=== PATIENT | female | born 1940 | race Caucasian/White ===

== ENCOUNTER 2017-06-10 16:48 | Emergency (ER) | payer MEDICARE ==
[~2017-06-10] VITALS: Ht 165.1 cm; Wt 59.0 kg
[~2017-06-10 16:48] MED LIST: MELA1CAP PO; PERC7.5T13 PO
[2017-06-10 16:52] VITALS: BP 118/57; PULSE 82; RESP 16; TEMP 97.8; O2SAT 94
[2017-06-10] MEDS ORDERED: MELA1TAB18 PO (17:41)
--- NOTE | 2017-06-10 17:44 | PD ---
HPI Chief Complaint: Injury Time Seen by Provider: 17:31 Travel History International Travel<30 days: No Contact w/Intl Traveler<30days: No Traveled to known affect area: No History of Present Illness HPI Patient is a 76-year-old female who reports a slip and fall landing on her left shoulder approximately an hour prior to arrival. She states she has extreme pain in her left shoulder time she tries to move it. Patient denies any head injury or neck injury back injury loss of consciousness. She describes a purely mechanical fall. She states she was actually just leaving her painter foreman before she was establishing as a first-time patient and tripped and fell in a parking lot. She states she's not had a prior injury to her shoulder she is followed by Dr. Allan for history of L1 fracture and asked why she was going to a painter foreman. She denies a history of frequent falls. PFSH Past Medical History Anxiety: Yes Cancer: Yes (UTERINE) Chemotherapy: No COPD: Yes (EMPHYSEMA) Diminished Hearing: No Musculoskeletal: Yes (BULGING DISC IN NECK) Radiation Therapy: No Past Surgical History Hysterectomy: Yes Social History Alcohol Use: Yes (DAILY WINE) Tobacco Use: Yes (1 PPD) Substance Use: No Allergies-Medications (Allergen,Severity, Reaction): Coded Allergies: penicillin G (Unverified Allergy, Severe, Anaphylaxis, 05/29/17) Reported Meds & Prescriptions Reported Meds & Active Scripts Active Reported Melatonin 10 Mg-1 Mg Tab 20 Mg PO HS PRN Review of Systems Except as stated in HPI: all other systems reviewed are Neg Physical Exam Narrative GENERAL: Well-nourished, well-developed patient. SKIN: Focused skin assessment warm/dry. There is an avulsion of the skin over the olecranon process of the left elbow. No bony tenderness appreciated. HEAD: Normocephalic. EYES: No scleral icterus. No injection or drainage. NECK: Supple, trachea midline. No JVD or lymphadenopathy. CARDIOVASCULAR: Regular rate and rhythm without murmurs, gallops, or rubs. RESPIRATORY: Breath sounds equal bilaterally. No accessory muscle use. GASTROINTESTINAL: Abdomen soft, non-tender, nondistended. MUSCULOSKELETAL: No cyanosis. There is some anterior swelling as well as tenderness to the proximal humerus on the left side. Highly consistent with a proximal humerus fracture. Appears to be properly seated in the glenohumeral joint. No tenderness on the clavicle, no tenderness on the distal humerus. No other deformities noted on her upper extremities and lower extremities. No midline CT or L-spine tenderness. Pulses motor and sensory are intact distally in all 4 extremities. Compartments are soft. BACK: Nontender without obvious deformity. No CVA tenderness. Data Data Last Documented VS Vital Signs Date Time Temp Pulse Resp B/P (MAP) Pulse Ox O2 Delivery O2 Flow Rate FiO2 06/10/17 19:21 80 20 95 06/10/17 16:52 97.8 118/57 (77) Orders Orders Humerus (Min 2vws) (06/10/17 ) Acetamin-Hydrocod 325-5 Mg (Coleman 5-325 (06/10/17 17:45) Sling And Swathe (06/10/17 ) Sling And Swathe (06/10/17 ) [facility] Medical Decision Making Medical Screen Exam Complete: Yes Emergency Medical Condition: Yes Differential Diagnosis Humerus fracture, before meals separation, shoulder dislocation unlikely, acute head injury unlikely, acute neck injury unlikely. Narrative Course Patient is a 76-year-old female who is quite pleasant, denies hitting her head or neck. She does not appear to be in any distress. Was given pain medicine, x -rays confirm the suspicion of approximately humerus fracture. She was placed in a sling and swath and discussed follow-up with her painter foreman as well as Dr. Allan and or Dr. Vargas this week. She is stable for discharge at this time. After placed in sling and swath pulses motor and sensory were confirmed distally as well. Diagnosis Primary Impression: Fracture, humerus Referrals: Yogi Vargas MD Additional Instructions: Call your painter foreman for further advice on pain management. You can consider taking 2 hydrocodone 5/325 pills every 8 hours as needed for pain. Do not operate heavy machinery after taking this medicine. Take a stool softener to help keep you regular as this medicine can constipation. Recommend you speak with your pain management physician for increasing to this regimen. Med/Other Pt SpecificInfo: Prescription(s) given Disposition: 01 DISCHARGE HOME Condition: Stable Bobo Swartz MD Jun 10, 2017 17:44
[2017-06-10] MEDS ORDERED: ACETAMINOPHEN/HYDROcodone 325 MG/5 MG TAB PO ONE (17:45)
--- NOTE | 2017-06-10 18:46 | RADRPT ---
EXAM DATE/TIME: 06/10/2017 17:46 [facility] COMPARISON: CHEST PA & LAT, December 05, 2013, 10:42. INDICATIONS : Trauma, fall. MEDICAL HISTORY : None. SURGICAL HISTORY : None. ENCOUNTER: Initial ACUITY: 1 day PAIN SCORE: 8/10 LOCATION: Left proximal humerus. FINDINGS: There is a comminuted fracture seen at the proximal left humerus. The fracture does ap pear somewhat impacted. Fracture fragments extend through the greater tubercle. The humeral head do es appear normally aligned with the glenoid. There is an old fracture deformity at the mid to latera l aspect of the left clavicle. CONCLUSION: Acute fracture deformity at the proximal left humerus. Paul Akhtar MD on June 10, 2017 at 18:36 Board Certified Radiologist. This report was verified electronically.
[2017-06-10 19:20] VITALS: RESP 18
== END 2017-06-10 19:33 | disposition home or self-care (01) ==
LOC: PHED 16:48
DX: S42.202A Unspecified fracture of upper end of left humerus, initial encounter for closed fracture (principal); W01.0XXA Fall on same level from slipping, tripping and stumbling without subsequent striking against object, initial encounter; Y92.481 Parking lot as the place of occurrence of the external cause
CPT/HCPCS: 73060; 99283

== ENCOUNTER 2018-02-23 15:23 | Observation (INO) | payer MEDICARE ==
[~2018-02-23] VITALS: Ht 165.1 cm; Wt 60.8 kg
[2018-02-23] VITALS (8 sets, daily range): BP systolic 118–142; BP diastolic 58–95; PULSE 82–116; RESP 18–24; TEMP 98–98.6; O2SAT 93–97
[~2018-02-23 15:23] MED LIST changes: -MELA1CAP PO; +MELA1TAB18 PO; -PERC7.5T13 PO
[2018-02-23] MEDS ORDERED: TRAM50TA PO (15:48)
[2018-02-23] MEDS ORDERED: VENTAER INH (15:48)
[2018-02-23] MEDS ORDERED: SODIUM CHLORIDE 0.9% FLUSH 10 ML FLUSH IVF PRN (16:00)
--- NOTE | 2018-02-23 16:02 | PD ---
HPI Chief Complaint: Respiratory Symptoms Time Seen by Provider: 15:49 Travel History International Travel<30 days: No Contact w/Intl Traveler<30days: No Traveled to known affect area: No History of Present Illness HPI 77-year-old female with history of COPD, here for evaluation of shortness of breath. Symptoms started yesterday afternoon. Shortness of breath is at rest, worse with exertion. She has had a cough productive of yellowish sputum as well. No hemoptysis. Patient has history of chronic back pain and states that she is having her usual back pain. No chest pain. No fevers or chills. EMS was called to her house at around noon today and the patient was provided Solu- Medrol and 1 DuoNeb treatment. She felt improved after this, and decided to not be transported to the emergency department at that time. Her symptoms seem to progressively worsen, and the patient is here now by private vehicle with a family member. Patient continues to smoke about 1 pack of cigarettes daily. PFSH Past Medical History Arthritis: Yes Anxiety: Yes Cancer: Yes (UTERINE) Chemotherapy: No COPD: Yes (EMPHYSEMA) Diminished Hearing: No Musculoskeletal: Yes (BULGING DISC IN NECK) Radiation Therapy: No Past Surgical History Hysterectomy: Yes Social History Alcohol Use: Yes (DAILY WINE) Tobacco Use: Yes (1 PPD) Substance Use: No Allergies-Medications (Allergen,Severity, Reaction): Coded Allergies: penicillin G (Unverified Allergy, Severe, Anaphylaxis, 02/23/18) Reported Meds & Prescriptions Reported Meds & Active Scripts Active Reported Ventolin Hfa 18 GM Inh (Albuterol Sulfate) 90 Mcg/Act Aer 2 Puff INH Q4-6H PRN Tramadol (Tramadol HCl) 50 Mg Tab 50 Mg PO Q8H PRN Melatonin 10 Mg-1 Mg Tab 20 Mg PO HS PRN Review of Systems Except as stated in HPI: all other systems reviewed are Neg Physical Exam Narrative GENERAL: Well-developed, well-nourished, pursed lip breathing, mild respiratory distress, speaking full sentences. SKIN: Focused skin assessment warm/dry. HEAD: Atraumatic. Normocephalic. EYES: Pupils equal and round. No scleral icterus. No injection or drainage. ENT: Mucous membranes pink and moist. NECK: Trachea midline. No JVD. CARDIOVASCULAR: Regular rate and rhythm. No murmur appreciated. RESPIRATORY: No accessory muscle use. Pursed lip breathing. Poor air movement bilaterally. Slight inspiratory and expiratory wheezes bilaterally. No rales or rhonchi. GASTROINTESTINAL: Abdomen soft, non-tender, nondistended. MUSCULOSKELETAL: No obvious deformities. No clubbing. No cyanosis. No edema. NEUROLOGICAL: Awake and alert. No obvious cranial nerve deficits. Motor grossly within normal limits. Normal speech. PSYCHIATRIC: Appropriate mood and affect; insight and judgment normal. Data Data Last Documented VS Vital Signs Date Time Temp Pulse Resp B/P (MAP) Pulse Ox O2 Delivery O2 Flow Rate FiO2 02/23/18 19:05 97 Nasal Cannula 2.00 02/23/18 18:37 18 02/23/18 17:55 98.6 116 122/61 (81) Orders Orders Complete Blood Count With Diff (02/23/18 15:54) Comprehensive Metabolic Panel (02/23/18 15:54) B-Type Natriuretic Peptide (02/23/18 15:54) Act Partial Throm Time (Ptt) (02/23/18 15:54) Prothrombin Time / Inr (Pt) (02/23/18 15:54) Ckmb (Isoenzyme) Profile (02/23/18 15:54) Troponin I (02/23/18 15:54) Influenzae A/B Antigen (02/23/18 15:54) Iv Access Insert/Monitor (02/23/18 15:54) Electrocardiogram (02/23/18 15:54) Ecg Monitoring (02/23/18 15:54) Oximetry (02/23/18 15:54) Oxygen Administration (02/23/18 15:54) Chest, Single Ap (02/23/18 15:54) Sodium Chloride 0.9% Flush (Ns Flush) (02/23/18 16:00) Albuterol-Ipratropium Neb (Duoneb Neb) (02/23/18 16:00) I-Stat Profile (02/23/18 17:45) Acetamin-Hydrocod 325-5 Mg ([place]ston 5-325 (02/23/18 18:00) Ct Pulmonary Angiogram (02/23/18 ) Iohexol 350 Inj (Omnipaque 350 Inj) (02/23/18 18:32) Blood Culture (02/23/18 18:47) Ceftriaxone Inj (Rocephin Inj) (02/23/18 19:00) Azithromycin Inj (Zithromax Inj) (02/23/18 19:00) Sodium Chlor 0.9% 1000 Ml Inj (Ns 1000 M (02/23/18 19:00) CKMB (02/23/18 17:50) CKMB% (02/23/18 17:50) Labs Laboratory Tests Test 02/23/18 16:40 02/23/18 17:50 White Blood Count 9.8 TH/MM3 Red Blood Count 4.72 MIL/MM3 Hemoglobin 15.4 GM/DL Hematocrit 45.8 % Mean Corpuscular Volume 97.0 FL Mean Corpuscular Hemoglobin 32.7 PG Mean Corpuscular Hemoglobin Concent 33.7 % Red Cell Distribution Width 11.8 % Platelet Count 352 TH/MM3 Mean Platelet Volume 8.0 FL Neutrophils (%) (Auto) 93.8 % Lymphocytes (%) (Auto) 4.4 % Monocytes (%) (Auto) 0.4 % Eosinophils (%) (Auto) 0.5 % Basophils (%) (Auto) 0.9 % Neutrophils # (Auto) 9.3 TH/MM3 Lymphocytes # (Auto) 0.4 TH/MM3 Monocytes # (Auto) 0.0 TH/MM3 Eosinophils # (Auto) 0.0 TH/MM3 Basophils # (Auto) 0.1 TH/MM3 CBC Comment DIFF FINAL Differential Comment Prothrombin Time 10.2 SEC Prothromb Time International Ratio 1.0 RATIO Activated Partial Thromboplast Time 28.9 SEC B-Type Natriuretic Peptide 51 PG/ML Bedside Hemoglobin G/DL Bedside Hematocrit % Bedside Sodium MMOL/L Blood Urea Nitrogen 6 MG/DL Creatinine 0.75 MG/DL Random Glucose 167 MG/DL Total Protein 8.2 GM/DL Albumin 3.8 GM/DL Calcium Level 8.8 MG/DL Alkaline Phosphatase 74 U/L Aspartate Amino Transf (AST/SGOT) 18 U/L Alanine Aminotransferase (ALT/SGPT) 19 U/L Total Bilirubin 0.4 MG/DL Sodium Level 135 MEQ/L Potassium Level 3.6 MEQ/L Chloride Level 102 MEQ/L Carbon Dioxide Level 20.3 MEQ/L Bedside Potassium MMOL/L Bedside Chloride MMOL/L Anion Gap 13 MEQ/L Bedside Blood Urea Nitrogen MG/DL Bedside Creatinine 0.6 MG/DL Estimat Glomerular Filtration Rate 75 ML/MIN Bedside Glucose MG/DL Total Creatine Kinase 181 U/L Creatine Kinase MB 1.4 NG/ML Troponin I LESS THAN 0.02 NG/ML MDM Medical Decision Making Medical Screen Exam Complete: Yes Emergency Medical Condition: Yes Interpretation(s) EKG: Sinus tachycardia, rate 102, leftward axis, Q waves in septal leads, no acute ischemic abnormality. Differential Diagnosis COPD exacerbation, pneumonia, ACS, PE, pneumothorax, Narrative Course Initial vital signs show heart rate 109, blood pressure 142/95, pulse ox 93% on room air, oral temperature 98.6F. CBC: WBC 9.8, hemoglobin 15.4, hematocrit 45.8, platelets 352, neutrophils 94%. CMP is remarkable for random glucose 167. BNP is 52. Influenza is negative. Chest x-ray: CONCLUSION: Probable mild congestive failure. Masslike opacity left upper lobe it could be followed by conventional PA lateral chest radiography when stable. CT pulmonary angiogram: CONCLUSION: 1. No evidence for pulmonary embolism. 2. Scattered groundglass densities and subcentimeter nodules. This could be infectious/inflammatory or neoplastic. 3. Irregular density left upper lobe measures 2.1 cm. 4. Mild emphysema. Patient and the patient's daughter were made aware of all findings. Heart rate is in the 120s and although she received 3 DuoNeb treatments, has been sustained this way even 2 hours after the treatments. She will be given some IV fluids. She will be started on IV antibiotics and will be admitted for further treatment and evaluation of pneumonia, COPD exacerbation, pulmonary nodules. Case discussed with hospitalist Dr. Summers who will admit the patient to her service. Diagnosis Primary Impression: Pneumonia Qualified Codes: J18.9 - Pneumonia, unspecified organism Additional Impressions: COPD exacerbation Pulmonary nodules Admitting Information Admitting Physician Requests: Admit Dwayne Pruitt MD February 23, 2018 16:02
[2018-02-23] MEDS: RESP: ALBUTEROL 2.5 MG/IPRATROPIUM 0.5 MG NEB (SCH) INH ×2 (16:11→16:12)
--- NOTE | 2018-02-23 16:34 | RADRPT ---
EXAM DATE/TIME: 02/23/2018 16:06 [facility] COMPARISON: No previous studies available for comparison. INDICATIONS : Short of breath MEDICAL HISTORY : Chronic obstructive pulmonary disease. SURGICAL HISTORY : None. ENCOUNTER: Initial ACUITY: 2 days PAIN SCORE: 0/10 LOCATION: Bilateral chest FINDINGS: Small 1.6 cm elongated mass like opacity left upper lobe. Mild cardiomegaly. Minimal interstitial e alsiha. No pleural effusion. No pneumothorax. Old fracture left humeral head CONCLUSION: Probable mild congestive failure. Masslike opacity left upper lobe it could be follo wed by conventional PA lateral chest radiography when stable. Justin Horton MD FACR on February 23, 2018 at 16:30 Board Certified Radiologist. This report was verified electronically.
[2018-02-23 17:17] LABS: AUTOMATED NEUTROPHIL # 9.3 TH/MM3 (1.8-7.7); BASOPHIL # 0.1 TH/MM3 (0-0.2); BASOPHIL % 0.9 % (0.0-2.0); EOSINOPHIL % 0.5 % (0.0-4.0); HEMATOCRIT 45.8 % (35.0-46.0); HEMOGLOBIN 15.4 GM/DL (11.6-15.3); LYMPH % 4.4 % (9.0-44.0); LYMPHOCYTE # 0.4 TH/MM3 (1.0-4.8); MEAN CORPUSCULAR HEMOGLOBIN 32.7 PG (27.0-34.0); MEAN CORPUSCULAR HGB CONC 33.7 % (32.0-36.0); MONO % 0.4 % (0.0-8.0); NEUT % 93.8 % (16.0-70.0); PLATELET COUNT 352 TH/MM3 (150-450); RED BLOOD COUNT 4.72 MIL/MM3 (4.00-5.30); RED CELL DISTRIBUTION WIDTH 11.8 % (11.6-17.2); WHITE BLOOD COUNT 9.8 TH/MM3 (4.0-11.0)
[2018-02-23] MEDS ORDERED: ACETAMINOPHEN/HYDROcodone 325 MG/5 MG TAB PO ONE (18:00)
[2018-02-23] MEDS ORDERED: IOHEXOL 350 MG/ML 10 ML VIAL (for RAD DIAG) IVCONTRAST ONE (18:32)
--- NOTE | 2018-02-23 18:40 | RADRPT ---
EXAM DATE/TIME: 02/23/2018 18:18 [facility] COMPARISON: No previous studies available for comparison. INDICATIONS : Short of breath. IV CONTRAST: 65 cc Omnipaque 350 (iohexol) IV RADIATION DOSE: 11.08 CTDIvol (mGy) MEDICAL HISTORY : Emphysema. Uterine cancer. SURGICAL HISTORY : Hysterectomy. ENCOUNTER: Initial ACUITY: 2 days PAIN SCALE: 0/10 LOCATION: chest TECHNIQUE: Volumetric scanning of the chest was performed using a pulmonary embolism protocol MIP images were re constructed. Using automated exposure control and adjustment of the mA and/or kV according to patien t size, radiation dose was kept as low as reasonably achievable to obtain optimal diagnostic quality images. DICOM format image data is available electronically for review and comparison. Follow-up recommendations for detected pulmonary nodules are based at a minimum on nodule size and pa tient risk factors according to Fleischner Society Guidelines. FINDINGS: PULMONARY ARTERIES: No filling defects are seen in the pulmonary arteries through the segmental level. LUNGS: There is no consolidation or pneumothorax . Irregular proximal density left upper lobe measures 2.1 c m. A few other scattered groundglass nodule seen in the posterior upper lobes and superior segments l ower lobes. Few other scattered subcentimeter nodules. Mild emphysema. Bibasilar atelectasis. PLEURAE: There is no pleural thickening or pleural effusion. MEDIASTINUM: There is good visualization of the great vessels of the middle mediastinum. No evidence of mediastin al or hilar adenopathy/mass. MUSCULOSKELETAL: Within normal limits for patient age. MISCELLANEOUS: The visualized upper abdominal organs demonstrate no acute abnormality. CONCLUSION: 1. No evidence for pulmonary embolism. 2. Scattered groundglass densities and subcentimeter nodules. This could be infectious/inflammatory o r neoplastic. 3. Irregular density left upper lobe measures 2.1 cm. 4. Mild emphysema. Angel De La Paz MD on February 23, 2018 at 18:35 Board Certified Radiologist. This report was verified electronically.
[2018-02-23 18:42] LABS: CHLORIDE 102 MEQ/L (98-107); SODIUM (NA) 135 MEQ/L (136-145)
[2018-02-23 18:45] LABS: CALCIUM 8.8 MG/DL (8.5-10.1)
[2018-02-23 18:46] LABS: ALBUMIN 3.8 GM/DL (3.4-5.0); BICARBONATE 20.3 MEQ/L (21.0-32.0); BLOOD UREA NITROGEN 6 MG/DL (7-18); GLUCOSE,RANDOM 167 MG/DL (74-106)
[2018-02-23 18:49] LABS: ALT (GPT) 19 U/L (10-53); AST (GOT) 18 U/L (15-37); CREATININE 0.75 MG/DL (0.50-1.00); GLOMERULAR FILTRATION RATE 75 ML/MIN (>89)
[2018-02-23 18:50] LABS: TOTAL BILIRUBIN ADULT 0.4 MG/DL (0.2-1.0); TOTAL PROTEIN 8.2 GM/DL (6.4-8.2)
[2018-02-23 18:51] LABS: PROTHROMBIN TIME - PATIENT 10.2 SEC (9.8-11.6)
[2018-02-23 18:52] LABS: ALKALINE PHOSPHATASE 74 U/L (45-117)
[2018-02-23 18:54] LABS: TROPONIN I LESS THAN 0.02 NG/ML (0.02-0.05)
[2018-02-23] MEDS ORDERED: AZITHROMYCIN INJ 500 MG in SODIUM CHLOR 0.9% 250 ML INJ 250 ML IV ONE (19:00)
[2018-02-23] MEDS ORDERED: SODIUM CHLOR 0.9% 1000 ML INJ 1,000 ML IV ONE (19:00)
[2018-02-23] MEDS ORDERED: cefTRIAXone INJ 1,000 MG in SODIUM CHLORIDE 0.9% INJ 100 ML IV ONE (19:00)
[2018-02-23] MEDS ORDERED: ACETAMINOPHEN/HYDROcodone 325 MG/5 MG TAB PO PRN (19:45)
[2018-02-23] MEDS ORDERED: ACETAMINOPHEN 325 MG TAB PO PRN (19:45)
[2018-02-23] MEDS ORDERED: NALOXONE HCL 0.4 MG/ML AMP IV PUSH PRN (19:45)
[2018-02-23] MEDS ORDERED: ONDANSETRON HCL 4 MG/2 ML VIAL IVP PRN (19:45)
[2018-02-23] MEDS ORDERED: RESP: IPRATROPIUM 0.5 MG/2.5 ML NEB NEB PRN (22:00)
[2018-02-23] MEDS: RESP: IPRATROPIUM 0.5 MG/2.5 ML NEB NEB SCH (22:15)
[2018-02-23] MEDS: SODIUM CHLORIDE 0.9% FLUSH 10 ML FLUSH IV FLUSH SCH (22:20)
[2018-02-23] MEDS: SODIUM CHLOR 0.9% 1000 ML INJ 1,000 ML IV SCH (22:20)
[2018-02-23] MEDS ORDERED: ONDANSETRON ODT 4 MG TAB PO PRN (22:45)
[2018-02-24] VITALS (7 sets, daily range): BP systolic 115–155; BP diastolic 66–83; PULSE 80–100; RESP 14–20; TEMP 97.6–98.5; O2SAT 95–99
[2018-02-24] MEDS: RESP: IPRATROPIUM 0.5 MG/2.5 ML NEB NEB SCH ×2 (03:33→09:22)
[2018-02-24 05:36] LABS: AUTOMATED NEUTROPHIL # 8.4 TH/MM3 (1.8-7.7); BASOPHIL # 0.1 TH/MM3 (0-0.2); BASOPHIL % 0.9 % (0.0-2.0); EOSINOPHIL % 0.3 % (0.0-4.0); HEMATOCRIT 40.5 % (35.0-46.0); HEMOGLOBIN 13.6 GM/DL (11.6-15.3); LYMPH % 9.5 % (9.0-44.0); MEAN CELL VOLUME 97.2 FL (80.0-100.0); MEAN CORPUSCULAR HEMOGLOBIN 32.7 PG (27.0-34.0); MEAN CORPUSCULAR HGB CONC 33.6 % (32.0-36.0); MEAN PLATELET VOLUME 7.7 FL (7.0-11.0); MONO % 8.4 % (0.0-8.0); MONOCYTE # 0.9 TH/MM3 (0-0.9); NEUT % 80.9 % (16.0-70.0); PLATELET COUNT 328 TH/MM3 (150-450); RED BLOOD COUNT 4.17 MIL/MM3 (4.00-5.30); RED CELL DISTRIBUTION WIDTH 11.9 % (11.6-17.2); WHITE BLOOD COUNT 10.4 TH/MM3 (4.0-11.0)
[2018-02-24 05:49] LABS: CALCIUM 8.3 MG/DL (8.5-10.1)
[2018-02-24 05:50] LABS: BICARBONATE 27.6 MEQ/L (21.0-32.0)
[2018-02-24 05:53] LABS: CREATININE 0.6 MG/DL (0.50-1.00)
[2018-02-24] MEDS: SODIUM CHLOR 0.9% 1000 ML INJ 1,000 ML IV SCH ×2 (08:26→16:11)
[2018-02-24] MEDS: SODIUM CHLORIDE 0.9% FLUSH 10 ML FLUSH IV FLUSH SCH ×2 (08:27→21:31)
[2018-02-24] MEDS ORDERED: RESP: ALBUTEROL 2.5 MG/IPRATROPIUM 0.5 MG NEB (PRN) NEB (10:30)
--- NOTE | 2018-02-24 11:31 | HHI.HP ---
[facility] Yogi Aguilar DO Admission Diagnosis Pneumonia, COPD exacerbation, pulmonary nodules Diagnoses: Chief Complaint: Shortness of breath and cough Travel History International Travel<30 Days: No Contact w/Intl Traveler <30 Da: No Traveled to Known Affected Are: No History of Present Illness Patient is a very pleasant 77-year-old female with a known history of COPD and active tobacco dependency who comes in with increased shortness of breath, dyspnea on exertion and productive yellow cough for 1 day. Was associated with chest discomfort. Her daughter called 911 and she was brought to the emergency room. She did improve with IV steroids and bronchodilators by nebulizer. Patient's been admitted to the hospital for acute exacerbation of COPD with pneumonia which is apparent on my review of the chest x-ray. CT of the chest also shows a 2 cm left upper lobe mass. Review of Systems Constitutional: DENIES: Diaphoretic episodes, Fatigue, Fever, Weight gain, Weight loss, Chills, Dizziness, Change in appetite, Night Sweats Endocrine: DENIES: Abnorml menstrual pattern, Heat/cold intolerance, Polydipsia , Polyuria, Polyphagia Eyes: DENIES: Blurred vision, Diplopia, Eye inflammation, Eye pain, Vision loss , Photosensitivity, Double Vision Ears, nose, mouth, throat: DENIES: Tinnitus, Hearing loss, Vertigo, Nasal discharge, Oral lesions, Throat pain, Hoarseness, Ear Pain, Running Nose, Epistaxis, Sinus Pain, Toothache, Odynophagia Respiratory: COMPLAINS OF: Cough, Wheezing, Sputum production, Shortness of breath, DENIES: Apneas, Snoring, Hemoptysis Cardiovascular: DENIES: Chest pain, Palpitations, Syncope, Dyspnea on Exertion , PND, Lower Extremity Edema, Orthopnea, Claudication Gastrointestinal: DENIES: Abdominal pain, Black stools, Bloody stools, Constipation, Diarrhea, Nausea, Vomiting, Difficulty Swallowing, Anorexia Genitourinary: DENIES: Abnormal vaginal bleeding, Dysmenorrhea, Dyspareunia, Sexual dysfunction, Urinary frequency, Urinary incontinence, Urgency, Hematuria , Dysuria, Nocturia, Vaginal discharge Musculoskeletal: DENIES: Joint pain, Muscle aches, Stiffness, Joint Swelling, Back pain, Neck pain Integumentary: DENIES: Abnormal pigmentation, Pruritus, Rash, Nail changes, Breast masses, Breast skin changes, Nipple discharge Hematologic/lymphatic: DENIES: Bruising, Lymphadenopathy Immunologic/allergic: DENIES: Eczema, Urticaria Neurologic: DENIES: Abnormal gait, Headache, Localized weakness, Paresthesias, Seizures, Speech Problems, Tremor, Poor Balance Psychiatric: DENIES: Anxiety, Confusion, Mood changes, Depression, Hallucinations, Agitation, Suicidal Ideation, Homicidal Ideation, Delusions Except as stated in HPI: all other systems reviewed are Neg Past Family Social History Past Medical History COPD/emphysema Past Surgical History Uterine cancer status post hysterectomy Reported Medications Reviewed in the EMR Allergies: Coded Allergies: penicillin G (Unverified Allergy, Severe, Anaphylaxis, 02/23/18) Active Ordered Medications Reviewed in the EMR vertex Family History Mother from a blood clot in her 80s, father from emphysema in his 70s Social History Patient smokes a pack a day for the last 40 years, lives with her family, alcohol daily without dependency issues per patient or daughter Physical Exam Vital Signs Vital Signs Date Time Temp Pulse Resp B/P (MAP) Pulse Ox O2 Delivery O2 Flow Rate FiO2 02/24/18 09:45 98 Nasal Cannula 2.00 02/24/18 08:49 98.5 80 14 123/75 (91) 99 02/24/18 03:30 97.6 93 20 155/80 (105) 96 02/23/18 22:17 97 Nasal Cannula 3.00 02/23/18 22:00 98 02/23/18 21:00 98.0 82 19 118/58 (78) 97 02/23/18 19:05 97 Nasal Cannula 2.00 02/23/18 19:05 102 22 121/61 (81) 97 Nasal Cannula 2.00 02/23/18 19:05 97 Nasal Cannula 2.00 02/23/18 18:37 18 02/23/18 17:55 98.6 116 19 122/61 (81) 95 Nasal Cannula 2.00 02/23/18 16:43 18 97 Nasal Cannula 2.00 02/23/18 16:43 97 Nasal Cannula 2.00 02/23/18 16:34 96 Nasal Cannula 2.00 02/23/18 16:30 20 97 Nasal Cannula 2.00 02/23/18 15:27 98.6 109 24 142/95 (430) 93 Physical Exam GENERAL: This is a well-nourished, well-developed patient, with pursed lipped breathing SKIN: No rashes, ecchymoses or lesions. Cool and dry. HEAD: Atraumatic. Normocephalic. No temporal or scalp tenderness. EYES: Pupils equal round and reactive. Extraocular motions intact. No scleral icterus. No injection or drainage. ENT: Nose without bleeding, purulent drainage or septal hematoma. Throat without erythema, tonsillar hypertrophy or exudate. Uvula midline. Airway patent. NECK: Trachea midline. No JVD or lymphadenopathy. Supple, nontender, no meningeal signs. CARDIOVASCULAR: Regular rate and rhythm without murmurs, gallops, or rubs. RESPIRATORY: Bilateral expiratory wheezes and prolonged expiratory phase GASTROINTESTINAL: Abdomen soft, non-tender, nondistended. No hepato-splenomegaly , or palpable masses. No guarding. MUSCULOSKELETAL: Extremities without clubbing, cyanosis, or edema. No joint tenderness, effusion, or edema noted. No calf tenderness. Negative Homans sign bilaterally. NEUROLOGICAL: Awake and alert. Cranial nerves II through XII intact. Motor and sensory grossly within normal limits. Five out of 5 muscle strength in all muscle groups. Normal speech. Laboratory Laboratory Tests Test 02/23/18 16:40 02/23/18 17:50 02/24/18 05:05 White Blood Count 9.8 10.4 Red Blood Count 4.72 4.17 Hemoglobin 15.4 13.6 Hematocrit 45.8 40.5 Mean Corpuscular Volume 97.0 97.2 Mean Corpuscular Hemoglobin 32.7 32.7 Mean Corpuscular Hemoglobin Concent 33.7 33.6 Red Cell Distribution Width 11.8 11.9 Platelet Count 352 328 Mean Platelet Volume 8.0 7.7 Neutrophils (%) (Auto) 93.8 80.9 Lymphocytes (%) (Auto) 4.4 9.5 Monocytes (%) (Auto) 0.4 8.4 Eosinophils (%) (Auto) 0.5 0.3 Basophils (%) (Auto) 0.9 0.9 Neutrophils # (Auto) 9.3 8.4 Lymphocytes # (Auto) 0.4 1.0 Monocytes # (Auto) 0.0 0.9 Eosinophils # (Auto) 0.0 0.0 Basophils # (Auto) 0.1 0.1 CBC Comment DIFF FINAL DIFF FINAL Differential Comment Prothrombin Time 10.2 Prothromb Time International Ratio 1.0 Activated Partial Thromboplast Time 28.9 B-Type Natriuretic Peptide 51 Bedside Hemoglobin Bedside Hematocrit Bedside Sodium Blood Urea Nitrogen 6 7 Creatinine 0.75 0.60 Random Glucose 167 95 Total Protein 8.2 Albumin 3.8 Calcium Level 8.8 8.3 Alkaline Phosphatase 74 Aspartate Amino Transf (AST/SGOT) 18 Alanine Aminotransferase (ALT/SGPT) 19 Total Bilirubin 0.4 Sodium Level 135 140 Potassium Level 3.6 3.8 Chloride Level 102 107 Carbon Dioxide Level 20.3 27.6 Bedside Potassium Bedside Chloride Anion Gap 13 5 Bedside Blood Urea Nitrogen Bedside Creatinine 0.6 Estimat Glomerular Filtration Rate 75 97 Bedside Glucose Total Creatine Kinase 181 Creatine Kinase MB 1.4 Troponin I LESS THAN 0.02 Date/Time Source Procedure Growth Status 02/23/18 19:15 Blood Peripheral Aerobic Blood Culture - Preliminary NO GROWTH IN 1 DAY Resulted 02/23/18 19:15 Blood Peripheral Anaerobic Blood Culture - Preliminary NO GROWTH IN 1 DAY Resulted 02/23/18 15:54 Nasal Washing Influenza Types A,B Antigen (DEEPAK) - Final NEGATIVE FOR FLU A AND B ANTIGEN.... Complete Result Diagram: 02/24/18 0505 02/24/18 0505 Imaging Last Impressions Chest X-Ray 02/23/18 1554 Signed Impressions: Service Date/Time: Friday, February 23, 2018 16:06 - CONCLUSION: Probable mild congestive failure. Masslike opacity left upper lobe it could be followed by conventional PA lateral chest radiography when stable. Justin Horton MD FACR CT Angiography 02/23/18 0000 Signed Impressions: Service Date/Time: Friday, February 23, 2018 18:18 - CONCLUSION: 1. No evidence for pulmonary embolism. 2. Scattered groundglass densities and subcentimeter nodules. This could be infectious/inflammatory or neoplastic. 3. Irregular density left upper lobe measures 2.1 cm. 4. Mild emphysema. Angel De La Paz MD Caprini VTE Risk Assessment Caprini VTE Risk Assessment: Mod/High Risk (score >= 2) Caprini Risk Assessment Model Point Value = 1 Point Value = 2 Point Value = 3 Point Value = 5 Age 41-60 Minor surgery BMI > 25 kg/m2 Swollen legs Varicose veins or History of unexplained or recurrent spontaneous Oral contraceptives or hormone replacement Sepsis (< 1 month) Serious lung disease, including pneumonia (< 1 month) Abnormal pulmonary function Acute myocardial infarction Congestive heart failure (< 1 month) History of inflammatory bowel disease Medical patient at bed rest Age 61-74 Arthroscopic surgery Major open surgery (> 45 min) Laparoscopic surgery (> 45 min) Malignancy Confined to bed (> 72 hours) Immobilizing plaster cast Central venous access Age >= 75 History of VTE Family history of VTE Factor V Leiden Prothrombin [id number] Lupus anticoagulant Anticardiolipin antibodies Elevated serum homocysteine Heparin-induced thrombocytopenia Other congenital or acquired thrombophilia Stroke (< 1 month) Elective arthroplasty Hip, pelvis, or leg fracture Acute spinal cord injury (< 1 month) Prophylaxis Regimen Total Risk Factor Score Risk Level Prophylaxis Regimen 0-1 Low Early ambulation 2 Moderate Order ONE of the following: *Sequential Compression Device (SCD) *Heparin 5000 units SQ BID 3-4 Higher Order ONE of the following medications: *Heparin 5000 units SQ TID *Enoxaparin/Lovenox 40 mg SQ daily (WT < 150 kg, CrCl > 30 mL/min) *Enoxaparin/Lovenox 30 mg SQ daily (WT < 150 kg, CrCl > 10-29 mL/min) *Enoxaparin/Lovenox 30 mg SQ BID (WT < 150 kg, CrCl > 30 mL/min) AND/OR *Sequential Compression Device (SCD) 5 or more Highest Order ONE of the following medications: *Heparin 5000 units SQ TID (Preferred with Epidurals) *Enoxaparin/Lovenox 40 mg SQ daily (WT < 150 kg, CrCl > 30 mL/min) *Enoxaparin/Lovenox 30 mg SQ daily (WT < 150 kg, CrCl > 10-29 mL/min) *Enoxaparin/Lovenox 30 mg SQ BID (WT < 150 kg, CrCl > 30 mL/min) AND *Sequential Compression Device (SCD) Assessment and Plan Problem List: (1) COPD exacerbation ICD Code: J44.1 - Chronic obstructive pulmonary disease with (acute) exacerbation Status: Acute Plan: Continue with nebulized bronchodilators IV steroids Antibiotics for pneumonia (2) Pneumonia ICD Code: J18.9 - Pneumonia, unspecified organism Status: Acute Plan: Continue antibiotics azithromycin Rocephin for likely community-acquired pneumonia Continue treatments for COPD (3) Pulmonary nodules ICD Code: R91.8 - Other nonspecific abnormal finding of lung field Status: Acute Plan: With possible 2 cm left upper lobe mass Pulmonary consult pending Continue to treat infectious process Problem Qualifiers (1) Pneumonia: Qualified Codes: J18.9 - Pneumonia, unspecified organism Margarita De La Rosa MD February 24, 2018 11:31
[2018-02-24] MEDS: methylPREDNISolone SOD SUCC 40 MG/1 ML VIAL IV PUSH SCH ×2 (13:04→23:49)
[2018-02-24] MEDS: HEPARIN SODIUM - SQ 10,000 UNITS/ML VIAL SQ SCH ×2 (13:06→21:34)
[2018-02-24] MEDS: RESP: ALBUTEROL 2.5 MG/IPRATROPIUM 0.5 MG NEB (SCH) NEB ×2 (13:56→20:00)
[2018-02-24] MEDS: traMADol HCL 50 MG TAB PO PRN ×2 (14:53→23:21)
[2018-02-24] MEDS: AZITHROMYCIN INJ 500 MG in SODIUM CHLOR 0.9% 250 ML INJ 250 ML IV SCH (16:57)
--- NOTE | 2018-02-24 20:16 | EKG ---
Date Performed: 02/23/2018 Time Performed: 16:06:29 PTAGE: 77 years EKG: SINUS TACHYCARDIA POSSIBLE LEFT ATRIAL ENLARGEMENT ABNORMAL ECG NO PREVIOUS TRACING DOCTOR: Chintan Mckeon Interpretating Date/Time 02/24/2018 20:14:47
--- NOTE | 2018-02-24 20:26 | MB ---
cc: Sterling Watt MD DATE: 02/24/2018 REASON FOR CONSULTATION: COPD and pulmonary nodules. HISTORY OF PRESENT ILLNESS: The patient is a 77-year-old female who is known to have history of heavy smoking, 37 pack years, quit 2 days ago. She came into the hospital because of shortness of breath, coughing and wheezing. The patient today is much better. Her cough is productive of yellow sputum. No hemoptysis, no fever, no chills, no night sweats, no weight loss. On the CAT scan, she was found to have evidence of pulmonary nodules. REVIEW OF SYSTEMS: Negative except what was mentioned in the HPI. PAST MEDICAL HISTORY: Positive for COPD. PAST SURGICAL HISTORY: Positive for hysterectomy for uterine cancer. MEDICATIONS: All reviewed in details. PHYSICAL EXAMINATION: GENERAL: She is resting comfortably in bed. VITAL SIGNS: Temperature 98.2, pulse 91, respiratory rate is 15, blood pressure 140/83. She is sating 95% on 2 liters nasal cannula. HEAD: Atraumatic, normocephalic. NECK: Trachea midline. LUNGS: Bilateral expiratory wheezing. HEART: Normal S1, S2. ABDOMEN: Soft, nontender, positive bowel sounds. EXTREMITIES: No edema or cyanosis. NEUROLOGIC: Alert, oriented x3, moves all extremities. LABORATORY DATA: WBC 10.4, hemoglobin 13.6. Her BUN is 7, creatinine is 0.6. IMAGING STUDIES: I reviewed the CAT scan that did show multiple ground glass opacities, the largest in the left upper lobe about 2.1 cm. ASSESSMENT AND PLAN: 1. Acute chronic obstructive pulmonary disease exacerbation. 2. Pneumonia. 3. Pulmonary nodules. 4. History of heavy tobacco abuse. I had a long discussion with the patient. I am happy that she is improving. I do recommend to continue the current plan of care, most likely switch to oral prednisone in a.m. and she should be able to go home in 1-2 days. As far as the pulmonary nodules, most likely they are inflammatory and thus I do not recommend intervention at this time. I do recommend a repeat CT chest without contrast within 4 weeks and, depending on the results, we will make further decisions. If they do not improve or resolve, the patient will benefit from intervention with a bronchoscopy with or without a CT guided biopsy of the left upper lobe lesion. A PET scan at this point is not advisable. I answered all her questions to her satisfaction. I would like to thank you for this consultation and at this time I will sign off. Please call me if needed. The patient has my card and my office number as well. MD ANNALISA Forrester/ELINA , 07:07 PM , 08:25 PM
[2018-02-24] MEDS: guaiFENesin/DEXTROMETHORPHAN 200 MG/20 MG/10 ML CUP PO PRN (21:31)
[2018-02-24] MEDS: cefTRIAXone INJ 1,000 MG in SODIUM CHLORIDE 0.9% INJ 100 ML IV SCH (21:34)
[2018-02-24] MEDS: MELATONIN 5 MG TAB PO PRN (23:49)
[2018-02-24] MEDS: SODIUM CHLORIDE 0.9% FLUSH 10 ML FLUSH IV FLUSH PRN (23:49)
[2018-02-25] VITALS (8 sets, daily range): BP systolic 109–166; BP diastolic 53–72; PULSE 68–91; RESP 17–20; TEMP 96.1–98.4; O2SAT 94–99
[2018-02-25] MEDS: guaiFENesin/DEXTROMETHORPHAN 200 MG/20 MG/10 ML CUP PO PRN ×2 (04:30→14:34)
[2018-02-25] MEDS: SODIUM CHLOR 0.9% 1000 ML INJ 1,000 ML IV SCH ×3 (04:31→21:14)
[2018-02-25] MEDS: HEPARIN SODIUM - SQ 10,000 UNITS/ML VIAL SQ SCH ×3 (06:02→21:02)
[2018-02-25] MEDS: RESP: ALBUTEROL 2.5 MG/IPRATROPIUM 0.5 MG NEB (SCH) NEB ×3 (07:58→19:34)
[2018-02-25] MEDS: SODIUM CHLORIDE 0.9% FLUSH 10 ML FLUSH IV FLUSH SCH ×2 (08:04→21:01)
[2018-02-25] MEDS: traMADol HCL 50 MG TAB PO PRN ×3 (08:37→23:53)
--- NOTE | 2018-02-25 11:38 | HHI.PR ---
Subjective Remarks Patient seen today in follow-up for pneumonia with hypoxemia.. Overall improved. Patient on room air and ambulate well. Pulmonary consult appreciated. Objective Vitals Vital Signs Date Time Temp Pulse Resp B/P (MAP) Pulse Ox O2 Delivery O2 Flow Rate FiO2 02/25/18 09:39 98.4 91 19 109/53 (71) 94 02/25/18 09:37 19 02/25/18 08:00 99 Nasal Cannula 2.00 02/25/18 00:41 96.9 82 20 166/72 (103) 97 02/24/18 20:03 98.2 100 20 127/66 (86) 96 02/24/18 20:00 97 Nasal Cannula 2.00 02/24/18 16:17 98.2 91 15 140/83 (102) 95 02/24/18 13:05 97.8 88 16 115/69 (84) 99 I/O 02/24/18 02/24/18 02/24/18 02/25/18 02/25/18 02/25/18 07:00 15:00 23:00 07:00 15:00 23:00 Intake Total 700 ml 3180 ml 1181 ml Output Total 300 ml 150 ml Balance 400 ml -150 ml 3180 ml 1181 ml Intake Oral 1980 ml IV Total 700 ml 1200 ml 1181 ml Output Urine Total 300 ml 150 ml # Voids 3 1 8 # Bowel Movements 0 1 Result Diagram: 02/24/18 0505 02/24/18 0505 Imaging Last Impressions Chest X-Ray 02/23/18 1554 Signed Impressions: Service Date/Time: Friday, February 23, 2018 16:06 - CONCLUSION: Probable mild congestive failure. Masslike opacity left upper lobe it could be followed by conventional PA lateral chest radiography when stable. Justin Horton MD FACR CT Angiography 02/23/18 0000 Signed Impressions: Service Date/Time: Friday, February 23, 2018 18:18 - CONCLUSION: 1. No evidence for pulmonary embolism. 2. Scattered groundglass densities and subcentimeter nodules. This could be infectious/inflammatory or neoplastic. 3. Irregular density left upper lobe measures 2.1 cm. 4. Mild emphysema. Angel De La Paz MD Objective Remarks GENERAL: This is a well-nourished, well-developed patient, in no apparent distress. CARDIOVASCULAR: Regular rate and rhythm without murmurs, gallops, or rubs. RESPIRATORY: Improved airflow bilaterally GASTROINTESTINAL: Abdomen soft, non-tender, nondistended. Normal active bowel sounds MUSCULOSKELETAL: Extremities without clubbing, cyanosis, or edema. NEURO: Alert & Oriented x4 to person, place, time, situation. Moves all ext x4 A/P Problem List: (1) COPD exacerbation ICD Code: J44.1 - Chronic obstructive pulmonary disease with (acute) exacerbation Status: Acute Plan: Continue with nebulized bronchodilators IV steroids Antibiotics for pneumonia (2) Pneumonia ICD Code: J18.9 - Pneumonia, unspecified organism Status: Acute Plan: Continue antibiotics azithromycin Rocephin for likely community-acquired pneumonia Continue treatments for COPD (3) Pulmonary nodules ICD Code: R91.8 - Other nonspecific abnormal finding of lung field Status: Acute Plan: With possible 2 cm left upper lobe mass Pulmonary consult appreciated, follow-up in 4 weeks with repeat scan Continue to treat infectious process Discharge Planning Likely discharge in a.m. on oral antibiotics and oral steroids Problem Qualifiers (1) Pneumonia: Qualified Codes: J18.9 - Pneumonia, unspecified organism Margarita De La Rosa MD February 25, 2018 11:38
[2018-02-25] MEDS: NICOTINE 21 MG/24 HR PATCH T-DERMAL SCH (12:16)
[2018-02-25] MEDS: methylPREDNISolone SOD SUCC 40 MG/1 ML VIAL IV PUSH SCH ×2 (12:23→23:52)
[2018-02-25] MEDS: AZITHROMYCIN INJ 500 MG in SODIUM CHLOR 0.9% 250 ML INJ 250 ML IV SCH (16:43)
[2018-02-25] MEDS: cefTRIAXone INJ 1,000 MG in SODIUM CHLORIDE 0.9% INJ 100 ML IV SCH (21:01)
[2018-02-25] MEDS: MELATONIN 5 MG TAB PO PRN (21:11)
[2018-02-25] MEDS: SODIUM CHLORIDE 0.9% FLUSH 10 ML FLUSH IV FLUSH PRN (23:52)
[2018-02-26] MEDS: guaiFENesin/DEXTROMETHORPHAN 200 MG/20 MG/10 ML CUP PO PRN (00:15)
[2018-02-26] MEDS: HEPARIN SODIUM - SQ 10,000 UNITS/ML VIAL SQ SCH (05:46)
[2018-02-26] MEDS: RESP: ALBUTEROL 2.5 MG/IPRATROPIUM 0.5 MG NEB (SCH) NEB (07:32)
[2018-02-26] MEDS: SODIUM CHLOR 0.9% 1000 ML INJ 1,000 ML IV SCH (07:36)
[2018-02-26 08:00] VITALS: BP 146/65; PULSE 73; RESP 20; TEMP 97.6; O2SAT 95
[2018-02-26] MEDS: NICOTINE 21 MG/24 HR PATCH T-DERMAL SCH (09:00)
[2018-02-26] MEDS: SODIUM CHLORIDE 0.9% FLUSH 10 ML FLUSH IV FLUSH SCH (09:00)
[2018-02-26] MEDS: traMADol HCL 50 MG TAB PO PRN (09:34)
[2018-02-26] MEDS ORDERED: REMOVE OLD PATCH T-DERMAL SCH (10:00)
[2018-02-26 10:34] VITALS: RESP 20
[2018-02-26] MEDS ORDERED: IPRA0.02 NEB (11:17)
[2018-02-26] MEDS ORDERED: PRED20 PO (11:17)
[2018-02-26] MEDS ORDERED: NEBULIZER1 MI1 (11:17)
--- NOTE | 2018-02-26 11:18 | HHI.DCPOC ---
Discharge Care Plan Diagnosis: (1) COPD exacerbation (2) Pneumonia Additional Problems Follow-up for CT to reassess pulmonary nodules Goals to Promote Your Health * To prevent worsening of your condition and complications * To maintain your health at the optimal level Directions to Meet Your Goals Take your medications as prescribed Follow your dietary instruction Follow activity as directed Keep your appointments as scheduled Take your immunizations and boosters as scheduled If your symptoms worsen call your PCP, if no PCP go to Urgent Care Center or Emergency Room Smoking is Dangerous to Your Health. Avoid second hand smoke Call the 24-hour hour crisis hotline for domestic abuse at Margarita De La Rosa MD February 26, 2018 11:18
[2018-02-26] MEDS ORDERED: NICO21DI25 T-DERMAL (11:20)
--- NOTE | 2018-02-26 11:20 | HHI.DS ---
Discharge Summary Admission Date February 23, 2018 at 19:41 Discharge Date: February 26, 2018 Admitting Diagnosis Pneumonia, COPD exacerbation, pulmonary nodules (1) COPD exacerbation ICD Code: J44.1 - Chronic obstructive pulmonary disease with (acute) exacerbation Status: Acute (2) Pneumonia ICD Code: J18.9 - Pneumonia, unspecified organism Status: Acute (3) Pulmonary nodules ICD Code: R91.8 - Other nonspecific abnormal finding of lung field Status: Acute Procedures None Brief History - From Admission Patient is a very pleasant 77-year-old female with a known history of COPD and active tobacco dependency who comes in with increased shortness of breath, dyspnea on exertion and productive yellow cough for 1 day. Was associated with chest discomfort. Her daughter called 911 and she was brought to the emergency room. She did improve with IV steroids and bronchodilators by nebulizer. Patient's been admitted to the hospital for acute exacerbation of COPD with pneumonia which is apparent on my review of the chest x-ray. CT of the chest also shows a 2 cm left upper lobe mass. CBC/BMP: 02/24/18 0505 02/24/18 0505 Significant Findings Laboratory Tests Test 02/23/18 16:40 02/23/18 17:50 02/24/18 05:05 Hemoglobin 15.4 GM/DL (11.6-15.3) Neutrophils (%) (Auto) 93.8 % (16.0-70.0) 80.9 % (16.0-70.0) Lymphocytes (%) (Auto) 4.4 % (9.0-44.0) Neutrophils # (Auto) 9.3 TH/MM3 (1.8-7.7) 8.4 TH/MM3 (1.8-7.7) Lymphocytes # (Auto) 0.4 TH/MM3 (1.0-4.8) Blood Urea Nitrogen 6 MG/DL (7-18) Random Glucose 167 MG/DL (74-106) Sodium Level 135 MEQ/L (136-145) Carbon Dioxide Level 20.3 MEQ/L (21.0-32.0) Estimat Glomerular Filtration Rate 75 ML/MIN (>89) Troponin I LESS THAN 0.02 NG/ML Monocytes (%) (Auto) 8.4 % (0.0-8.0) Calcium Level 8.3 MG/DL (8.5-10.1) Imaging Last Impressions Chest X-Ray 02/23/18 1554 Signed Impressions: Service Date/Time: Friday, February 23, 2018 16:06 - CONCLUSION: Probable mild congestive failure. Masslike opacity left upper lobe it could be followed by conventional PA lateral chest radiography when stable. Justin Horton MD FACR CT Angiography 02/23/18 0000 Signed Impressions: Service Date/Time: Friday, February 23, 2018 18:18 - CONCLUSION: 1. No evidence for pulmonary embolism. 2. Scattered groundglass densities and subcentimeter nodules. This could be infectious/inflammatory or neoplastic. 3. Irregular density left upper lobe measures 2.1 cm. 4. Mild emphysema. Angel De La Paz MD PE at Discharge GENERAL: This is a well-nourished, well-developed patient, in no apparent distress. CARDIOVASCULAR: Regular rate and rhythm without murmurs, gallops, or rubs. RESPIRATORY: Clear without wheezes GASTROINTESTINAL: Abdomen soft, non-tender, nondistended. Normal active bowel sounds MUSCULOSKELETAL: Extremities without clubbing, cyanosis, or edema. NEURO: Alert & Oriented x4 to person, place, time, situation. Moves all ext x4 Pt update on day of discharge Patient doing well. Discharge plan discussed with patient and daughter at bedside. Hospital Course Patient was seen and treated for acute respiratory failure with COPD exacerbation. Patient was treated for pneumonia. She continued to improve greatly with steroids and neb lysed bronchodilators. She was seen by pulmonary specialty services due to abnormal CT which showed probable inflammatory changes and some nodules. Patient was discharged home in stable condition Pt Condition on Discharge: Good Discharge Disposition: Discharge Home Discharge Time: <= 30 minutes Discharge Instructions DIET: Follow Instructions for: As Tolerated, No Restrictions Activities you can perform: Regular-No Restrictions Follow up Referrals: Pulmonology - 4 Weeks with Sterling Watt MD New Medications: Ipratropium Neb (Ipratropium Neb) 0.5 Mg/2.5 Ml Amp 0.5 MG NEB Q6HR NEB PRN for SHORTNESS OF BREATH, #120 NEBULE 0 Refills Nebulizer (Nebulizer) 1 Mis Mis EA .XX DIRECTED for Breathing Treatment, #1 0 Refills Prednisone (Prednisone) 20 Mg Tab 20 MG PO DIRECTED for Inflammation, #11 TAB 0 Refills 40 MG twice a day x 3 days, then 20 MG daily x 3 days, then 10 MG daily x 3 days Nicotine (Eq Nicotine) 21 Mg/24 Hour Dis 1 PATCH T-DERMAL DAILY for tobacco cessation, #31 PATCH Continued Medications: Albuterol 18 GM Inh (Ventolin Hfa 18 GM Inh) 90 Mcg/Act Aer 2 PUFF INH Q4-6H PRN for SHORTNESS OF BREATH, #1 INHALER 0 Refills Melatonin (Melatonin) 10 Mg-1 Mg Tab 20 MG PO HS PRN for SLEEP, TAB 0 Refills Tramadol (Tramadol) 50 Mg Tab 50 MG PO Q8H PRN for PAIN, TAB 0 Refills Margarita De La Rosa MD February 26, 2018 11:20
[2018-02-26] MEDS ORDERED: NEBUKIT5 (16:34)
== END 2018-02-26 12:45 | disposition home or self-care (01) ==
LOC: PHED 15:23 → PHEDA 19:41 → INTOOBSV 19:41 → PH3A 20:59
PROVIDERS: ADMIT Hospitalist; ATTEND Hospitalist
DX: J44.1 Chronic obstructive pulmonary disease with (acute) exacerbation (principal); J44.0 Chronic obstructive pulmonary disease with (acute) lower respiratory infection; J18.9 Pneumonia, unspecified organism; J96.01 Acute respiratory failure with hypoxia; R00.0 Tachycardia, unspecified; R94.31 Abnormal electrocardiogram [ECG] [EKG]; R91.8 Other nonspecific abnormal finding of lung field; M54.9 Dorsalgia, unspecified; G89.29 Other chronic pain; F41.9 Anxiety disorder, unspecified; M19.90 Unspecified osteoarthritis, unspecified site; F17.210 Nicotine dependence, cigarettes, uncomplicated; Z85.42 Personal history of malignant neoplasm of other parts of uterus
CPT/HCPCS: 71045; 71275; 80048; 80053; 82550; 82552; 83880; 84484; 85025; 85610; 85730; 87040; 87070; 87102; 87205; 87206; 87804; 93005; 94640; 94664; 96361; 96365; 96366; 96367; 96372; 96375; 96376; 97110; 97116; 97162; 99285; G0378; G8987; G8988; J0456; J0696; J1644; J2920; J7030; J7050; J7644; Q9967; 96374

== ENCOUNTER 2018-03-06 13:37 | Emergency (ER) | payer MEDICARE ==
[~2018-03-06 13:37] MED LIST changes: +IPRA0.02 NEB; +NEBUKIT5; +NEBULIZER1 MI1; +NICO21DI25 T-DERMAL; +PRED20 PO; +TRAM50TA PO; +VENTAER INH
[2018-03-06 13:48] VITALS: BP 159/87; PULSE 84; RESP 20; TEMP 97.9; O2SAT 94
[2018-03-06] MEDS ORDERED: methylPREDNISolone SOD SUCC 125 MG/2 ML VIAL IV PUSH ONE (14:00)
[2018-03-06] MEDS ORDERED: SODIUM CHLORIDE 0.9% FLUSH 10 ML FLUSH IVF PRN (14:00)
[2018-03-06] MEDS ORDERED: SODIUM CHLORID 0.9% 500 ML INJ 500 ML IV ONE (14:00)
[2018-03-06 14:05] VITALS: O2SAT 98
[2018-03-06] MEDS ORDERED: PRED10 PO (14:06)
[2018-03-06] MEDS: RESP: ALBUTEROL 2.5 MG/IPRATROPIUM 0.5 MG NEB (SCH) INH ×2 (14:06→14:07)
[2018-03-06] MEDS ORDERED: PRED20 PO (14:06)
--- NOTE | 2018-03-06 14:07 | PD ---
HPI Chief Complaint: Respiratory Symptoms Time Seen by Provider: 13:48 Travel History International Travel<30 days: No Contact w/Intl Traveler<30days: No Traveled to known affect area: No History of Present Illness HPI 60-year-old female complains of shortness of breath. She has a history of recently diagnosed COPD. She has been using her nebs twice daily. She also has been using her inhaler every 1 hour which is more than normal. She has a chronic cough which has not changed. She denies chest pain. No fever. No recent travel. The patient stopped taking prednisone 2 days prior. Since discontinuing the prednisone the dyspnea has worsened. Patient quit smoking tobacco 2 weeks ago. 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) Neurologic: No Psychiatric: Yes Reproductive: No Respiratory: Yes Radiation Therapy: No Sleep Apnea: No Tetanus Vaccination: < 5 Years Influenza Vaccination: Yes Past Surgical History Abdominal Surgery: No Cardiac Surgery: No Ear Surgery: No Endocrine Surgery: No Genitourinary Surgery: No Gynecologic Surgery: Yes (hysterectomy) Hysterectomy: Yes Oral Surgery: No Thoracic Surgery: No Other Surgery: Yes Social History Alcohol Use: Yes (DAILY WINE) Tobacco Use: Yes (1 PPD) Substance Use: No Allergies-Medications (Allergen,Severity, Reaction): Coded Allergies: penicillin G (Unverified Allergy, Severe, Anaphylaxis, 02/23/18) Reported Meds & Prescriptions Reported Meds & Active Scripts Active Prednisone 20 Mg Tab 40 Mg PO DAILY 2 Days Take 40 mg (2 tablets) daily for 5 days Prednisone 20 Mg Tab 20 Mg PO DAILY 2 Days Prednisone 10 Mg Tab 10 Mg PO DAILY 2 Days Nebulizer Kit/Tubing/Mout (N/A) 1 Kit Kit Kit .XX DIRECTED Eq Nicotine (Nicotine) 21 Mg/24 Hour Dis 1 Patch T-DERMAL DAILY Nebulizer 1 Mis Mis Ea .XX DIRECTED Ipratropium Neb (Ipratropium [place]) 0.5 Mg/2.5 Ml Amp 0.5 Mg NEB Q6HR NEB PRN Reported Ventolin Hfa 18 GM Inh (Albuterol Sulfate) 90 Mcg/Act Aer 2 Puff INH Q4-6H PRN Tramadol (Tramadol HCl) 50 Mg Tab 50 Mg PO Q8H PRN Melatonin 10 Mg-1 Mg Tab 20 Mg PO HS PRN Review of Systems Except as stated in HPI: all other systems reviewed are Neg General / Constitutional: No: Fever Physical Exam Narrative GENERAL: 77-year-old female pleasant well-nourished well-developed no acute distress Vital Signs Date Time Temp Pulse Resp B/P (MAP) Pulse Ox O2 Delivery O2 Flow Rate FiO2 03/06/18 13:48 97.9 84 20 159/87 (111) 94 SKIN: Warm and dry. HEAD: Atraumatic. Normocephalic. EYES: Pupils equal and round. No scleral icterus. No injection or drainage. ENT: No nasal bleeding or discharge. Mucous membranes pink and moist. NECK: Trachea midline. No JVD. CARDIOVASCULAR: Regular rate and rhythm. RESPIRATORY: Minimal tachypnea with a rate of about 20 breaths per minute. Minimal wheezing bilaterally. GASTROINTESTINAL: Abdomen soft, non-tender, nondistended. Hepatic and splenic margins not palpable. MUSCULOSKELETAL: Extremities without clubbing, cyanosis, or edema. No obvious deformities. NEUROLOGICAL: Awake and alert. No obvious cranial nerve deficits. Motor grossly within normal limits. Five out of 5 muscle strength in the arms and legs. Normal speech. PSYCHIATRIC: Appropriate mood and affect; insight and judgment normal. Data Data Last Documented VS Vital Signs Date Time Temp Pulse Resp B/P (MAP) Pulse Ox O2 Delivery O2 Flow Rate FiO2 03/06/18 15:02 82 22 96 Room Air 03/06/18 14:38 2.00 03/06/18 13:48 97.9 Orders Orders Complete Blood Count With Diff (03/06/18 13:54) Basic Metabolic Panel (Bmp) (03/06/18 13:54) Iv Access Insert/Monitor (03/06/18 13:54) Ecg Monitoring (03/06/18 13:54) Oximetry (03/06/18 13:54) Oxygen Administration (03/06/18 13:54) Chest, Single Ap (03/06/18 13:54) Sodium Chloride 0.9% Flush (Ns Flush) (03/06/18 14:00) Methylprednisolone So Succ Inj (Solumedr (03/06/18 14:00) Albuterol-Ipratropium Neb (Duoneb Neb) (03/06/18 14:00) Sodium Chlorid 0.9% 500 Ml Inj (Ns 500 M (03/06/18 14:00) Ed Discharge Order (03/06/18 15:07) Labs Laboratory Tests Test 03/06/18 14:00 White Blood Count 12.7 TH/MM3 Red Blood Count 4.58 MIL/MM3 Hemoglobin 15.3 GM/DL Hematocrit 44.8 % Mean Corpuscular Volume 97.9 FL Mean Corpuscular Hemoglobin 33.3 PG Mean Corpuscular Hemoglobin Concent 34.0 % Red Cell Distribution Width 12.4 % Platelet Count 402 TH/MM3 Mean Platelet Volume 7.2 FL Neutrophils (%) (Auto) 68.5 % Lymphocytes (%) (Auto) 13.4 % Monocytes (%) (Auto) 6.3 % Eosinophils (%) (Auto) 7.2 % Basophils (%) (Auto) 4.6 % Neutrophils # (Auto) 8.7 TH/MM3 Lymphocytes # (Auto) 1.7 TH/MM3 Monocytes # (Auto) 0.8 TH/MM3 Eosinophils # (Auto) 0.9 TH/MM3 Basophils # (Auto) 0.6 TH/MM3 CBC Comment AUTO DIFF Differential Comment AUTO DIFF CONFIRMED Blood Urea Nitrogen 9 MG/DL Creatinine 0.58 MG/DL Random Glucose 102 MG/DL Calcium Level 9.0 MG/DL Sodium Level 134 MEQ/L Potassium Level 4.3 MEQ/L Chloride Level 100 MEQ/L Carbon Dioxide Level 26.8 MEQ/L Anion Gap 7 MEQ/L Estimat Glomerular Filtration Rate 101 ML/MIN [facility] Medical Decision Making Medical Screen Exam Complete: Yes Emergency Medical Condition: Yes Medical Record Reviewed: Yes Differential Diagnosis COPD exacerbation, anemia, pneumonia Narrative Course CBC & BMP Diagram 03/06/18 14:00 Calcium Level 9.0 Last Impressions Chest X-Ray 03/06/18 4713 Signed Impressions: CONCLUSION: 1. No acute abnormality or significant interval change. The patient is resting comfortably and feels better, is alert and in no distress. The patients results and examination findings were discussed. The repeat examination is unremarkable and benign. The history, exam, diagnostic testing, and current condition do not suggest any significant pathology to warrant further testing, continued ED treatment, admission, or surgical evaluation at this point. The vital signs have been stable. The patient does not have uncontrollable pain, intractable vomiting, or other significant symptoms. The patient's condition is stable and appropriate for discharge. The patient will pursue further outpatient evaluation with a primary care physician or other designated or consulting physician as indicated in the discharge instructions. The patient expressed understanding and was agreeable with this plan. Diagnosis Primary Impression: Chronic obstructive pulmonary disease Qualified Codes: J44.9 - Chronic obstructive pulmonary disease, unspecified Referrals: Sterling Watt MD call for appointment Med/Other Pt SpecificInfo: Prescription(s) given Scripts Prednisone (Prednisone) 20 Mg Tab 40 MG PO DAILY for 2 Days, #4 TAB 0 Refills Take 40 mg (2 tablets) daily for 5 days Prov: Tenzin Aaron MD 03/06/18 Prednisone (Prednisone) 20 Mg Tab 20 MG PO DAILY for 2 Days, #2 TAB 0 Refills Prov: Tenzin Aaron MD 03/06/18 Prednisone (Prednisone) 10 Mg Tab 10 MG PO DAILY for 2 Days, #2 TAB 0 Refills Prov: Tenzin Aaron MD 03/06/18 Disposition: 01 DISCHARGE HOME Condition: Stable Tenzin Aaron MD March 06, 2018 14:07
--- NOTE | 2018-03-06 14:14 | RADRPT ---
EXAM DATE: 03/06/2018 2:07 PM EDT AGE/SEX: 77 years / Female INDICATIONS: Short of breath. CLINICAL DATA: This is the patient's initial encounter. Patient reports that signs and symptoms have been present for 3 days and indicates a pain score of 0/10. MEDICAL/SURGICAL HISTORY: Chronic obstructive pulmonary disease. Emphysema. Carcinoma, uterin e. smoker Hysterectomy. COMPARISON: [facility], CHEST SINGLE AP, 02/23/2018. . FINDINGS: No new focal pleural or parenchymal opacities. Cardiomediastinal contours are within normal limits. B joanna thorax is intact. CONCLUSION: 1. No acute abnormality or significant interval change. Electronically signed by: Roland Glez MD 03/06/2018 2:13 PM EDT
[2018-03-06 14:18] LABS: AUTOMATED NEUTROPHIL # 8.7 TH/MM3 (1.8-7.7); BASOPHIL # 0.6 TH/MM3 (0-0.2); BASOPHIL % 4.6 % (0.0-2.0); EOSINOPHIL # 0.9 TH/MM3 (0-0.4); EOSINOPHIL % 7.2 % (0.0-4.0); HEMATOCRIT 44.8 % (35.0-46.0); HEMOGLOBIN 15.3 GM/DL (11.6-15.3); LYMPH % 13.4 % (9.0-44.0); LYMPHOCYTE # 1.7 TH/MM3 (1.0-4.8); MEAN CELL VOLUME 97.9 FL (80.0-100.0); MEAN CORPUSCULAR HEMOGLOBIN 33.3 PG (27.0-34.0); MEAN PLATELET VOLUME 7.2 FL (7.0-11.0); MONO % 6.3 % (0.0-8.0); MONOCYTE # 0.8 TH/MM3 (0-0.9); NEUT % 68.5 % (16.0-70.0); PLATELET COUNT 402 TH/MM3 (150-450); RED BLOOD COUNT 4.58 MIL/MM3 (4.00-5.30); RED CELL DISTRIBUTION WIDTH 12.4 % (11.6-17.2); WHITE BLOOD COUNT 12.7 TH/MM3 (4.0-11.0)
[2018-03-06 14:32] VITALS: O2SAT 97
[2018-03-06 14:35] LABS: BICARBONATE 26.8 MEQ/L (21.0-32.0)
[2018-03-06 14:38] LABS: CREATININE 0.58 MG/DL (0.50-1.00)
[2018-03-06 14:49] VITALS: BP 140/55; PULSE 104; RESP 20
[2018-03-06 15:02] VITALS: PULSE 82; RESP 22; O2SAT 96
== END 2018-03-06 15:20 | disposition home or self-care (01) ==
LOC: PHED 13:37
DX: J44.9 Chronic obstructive pulmonary disease, unspecified (principal); R05 Cough; Z88.0 Allergy status to penicillin; M81.0 Age-related osteoporosis without current pathological fracture
CPT/HCPCS: 71045; 80048; 85025; 94640; 94664; 96361; 96374; 99284; J2930; J7040

== ENCOUNTER 2018-10-11 23:24 | Inpatient (IN) ==
[2018-10-11] MEDS ORDERED: Propofol 1000 mg/100 ml Inj 1,000 MG/100 ML BOTTLE IV.CONT PRN (23:40)
[2018-10-11] MEDS ORDERED: Propofol 1000 mg/100 ml Inj 1,000 MG/100 ML BOTTLE ONE (23:41)
--- NOTE | 2018-10-12 00:08 | XR ---
EXAM DATE: 10/12/2018 12:01 AM EST AGE/SEX: 78 years / Female INDICATIONS: COPD. Post intubation. CLINICAL DATA: This is the patient's initial encounter. Patient reports that signs and symptoms have been present for 1 day and indicates a pain score of Nonresponsive. MEDICAL/SURGICAL HISTORY: Chronic obstructive pulmonary disease. None. COMPARISON: [facility]PO, CHEST SINGLE AP, 03/06/2018. . FINDINGS: Chronic interstitial opacities are again seen of both lungs. No acute infiltrate demonstrated. No ple ural effusion or pneumothorax. Heart size stable, upper limits of normal. Thoracic aorta is tortuous and atherosclerotic. Old fracture of the left clavicle again noted. Endotracheal tube tip is approximately 4.4 cm above the rosa isela. Nasogastric tube courses into the sto mach. CONCLUSION: Chronic interstitial changes. No acute infiltrate demonstrated. Electronically signed by: Paul Bowles MD Board Certified Radiologist 10/12/2018 12:07 AM EST
--- NOTE | 2018-10-12 00:16 | ED ---
HPI General Chief Complaint: Respiratory Symptoms Stated Complaint: resp Time Seen by Provider: 10/11/18 23:40 History of Present Illness 78-year-old female arrives via [facility] intubated. Apparently the call was for shortness of breath and then a repeat call stated that CPR was in progress. When [facility] arrived the patient was with a pulse however they said she was not responding appropriately so they intubated her. The history is minimal at best there is no account of what happened prior to the call. Related Data Home Medications Medication Instructions Recorded Confirmed albuterol sulfate [Ventolin HFA] 2 puff INHALATION Q4-6H PRN 10/12/18 10/12/18 alendronate 70 mg PO QWEEK 10/12/18 10/12/18 alprazolam 0.25 mg PO BID PRN 10/12/18 10/12/18 escitalopram oxalate 15 mg PO DAILY 10/12/18 10/12/18 ipratropium-albuterol 3 ml INHALATION Q6-8H PRN 10/12/18 10/12/18 tramadol 50 mg PO TID PRN 10/12/18 10/12/18 zolpidem 5 mg PO HS 10/12/18 10/12/18 Allergies Allergy/AdvReac Type Severity Reaction Status Date / Time penicillin G Allergy Severe Anaphylaxis Verified 10/11/18 23:34 Review of Systems ROS: all other systems reviewed are negative [facility] Family History Family History Other Family history non-contributory Social History Social History Substance History: Unable to Obtain Second Hand Smoke Exposure: No Smoking Status: Unknown if ever smoked Tobacco Type: Cigarettes How Often Do You Have a Drink Containing Alcohol: Unable to Obtain Recent Travel in [facility] within the Last 8 Weeks: No Recent Out of Country Travel within the Last 8 Weeks: No Immunization History Tetanus Immunization: Unable to Assess Exam Narrative Exam Narrative: GENERAL: 78-year-old female who is intubated and sedated. SKIN: Focused skin assessment warm/dry. Candidiasis under the left breast. HEAD: Atraumatic. Normocephalic. EYES: Pupils equal and round. No scleral icterus. No injection or drainage. ENT: No nasal bleeding or discharge. Mucous membranes pink and moist. NECK: Trachea midline. No JVD. CARDIOVASCULAR: Regular rate and rhythm. No murmur appreciated. RESPIRATORY: Intubated bilateral breath sounds noted. GASTROINTESTINAL: Abdomen soft, non-tender, nondistended. Hepatic and splenic margins not palpable. MUSCULOSKELETAL: No obvious deformities. No clubbing. No cyanosis. No edema. Course Initial Documented Vital Signs Pulse Rate 100 H 10/11/18 23:25 Respiratory Rate 18 10/11/18 23:25 Blood Pressure 167/83 H 10/11/18 23:25 Pulse Oximetry 100 10/11/18 23:25 Last Documented Vital Signs Pulse Rate 97 H 10/12/18 02:08 Respiratory Rate 20 10/12/18 02:08 Blood Pressure 119/56 L 10/12/18 02:08 Pulse Oximetry 98 10/12/18 03:14 Medical Decision Making MDM Narrative Medical decision making narrative: Patient is a 78-year-old female that was seen and evaluated in the emergency department. She arrived intubated however unclear why she was intubated and she was awake and attempting to extubate herself. The ICU was called and the sedation was turned off her neph was greater than 400 and she was subsequently extubated in the emergency department. She was still admitted to Dr. Mixon and placed in CIC. Medical Screen Exam Complete: Yes Emergency Medical Condition: Yes Lab Data Result diagrams: 10/11/18 23:55 10/11/18 23:55 Lab Results 10/11/18 10/11/18 10/11/18 Range/Units 23:55 23:55 23:55 WBC 15.8 H (4.0-11.0) th/mm3 RBC 3.89 L (4.00-5.30) mil/mm3 Hgb 13.5 (11.6-15.3) gm/dL Hct 39.6 (35.0-46.0) % MCV 102.0 H (80.0-100.0) fL MCH 34.8 H (27.0-34.0) pg MCHC 34.1 (32.0-36.0) % RDW 13.3 (11.6-17.2) % Plt Count 335 (150-450) th/mm3 MPV 7.7 (7.0-11.0) fL Prelim Diff (Auto) Slide review pending Neut % (Auto) 61.9 (16.0-70.0) % Lymph % (Auto) 21.1 (9.0-44.0) % [place] % (Auto) 7.2 (0.0-8.0) % Eos % (Auto) 8.6 H (0.0-4.0) % Baso % (Auto) 1.2 (0.0-2.0) % Neut # (Auto) 9.8 H (1.8-7.7) th/mm3 Lymph # (Auto) 3.3 (1.0-4.8) th/mm3 [place] # (Auto) 1.1 H (0.0-0.9) th/mm3 Eos # (Auto) 1.4 H (0.0-0.4) th/mm3 Baso # (Auto) 0.2 (0.0-0.2) th/mm3 WBC Differential Manual diff final Seg Neuts % (Manual) 58 (16-70) % Band Neuts % (Manual) 3 (0-6) % Lymphocytes % (Manual) 23 (9-44) % Monocytes % (Manual) 5 (0-8) % Eosinophils % (Manual) 7 H (0-4) % Basophils % (Manual) 2 (0-2) % Metamyelocytes % (Man) 2 H (0-1) % Abs Neuts (Manual) 10.0 H (1.8-7.7) th/mm3 Differential Comment . Platelet Estimate Normal (Normal) Platelet Morphology Normal (Normal) Puncture Site Patient Temperature O2 Saturation (90-100) % ABG pH (7.380-7.420) ABG pCO2 (38-42) mmHg ABG pO2 (61-120) mmHg ABG HCO3 (22-26) mmol/L ABG O2 Content (12.0-20.0) Vol % ABG Base Excess (-2-2) mmol/L ABG Methemoglobin (0-2) % Roman Test Hemoglobin (12.0-16.0) G/DL Carboxyhemoglobin (0-4) % O2 Delivery Device Vent Setting Inspired O2 % Critical Value Sodium 143 (136-145) meq/L Potassium 4.2 (3.5-5.1) meq/L Chloride 109 H (98-107) meq/L Carbon Dioxide 22.7 (21.0-32.0) meq/L Anion Gap 11 (5-15) meq/L BUN 9 (7-18) mg/dL Creatinine 0.89 (0.50-1.00) mg/dL Estimated GFR 62 L (>89) mL/min POC Glucose (68-110) mg/dl Random Glucose 212 H (74-106) mg/dL Calcium 7.2 L* (8.5-10.1) mg/dL Calcium Adj for Albumin 7.9 L (8.5-10.1) mg/dL Total Bilirubin 0.3 (0.2-1.0) mg/dL AST 108 H (15-37) U/L ALT 66 H (10-53) U/L Alkaline Phosphatase 68 (45-117) U/L Total Creatine Kinase 111 (26-192) U/L CK-MB (CK-2) (0.5-3.6) ng/mL CK-MB (CK-2) % (0.0-4.0) % Troponin I 0.07 H (0.02-0.05) ng/mL B-Natriuretic Peptide (0-100) pg/mL Total Protein 6.7 (6.4-8.2) g/dL Albumin 3.1 L (3.4-5.0) g/dL Urine Color Yellow (Yellw/Straw) Urine Clarity Hazy H (Clear) Urine pH 5.0 (5.0-8.5) Ur Specific [place] 1.012 (1.002-1.035) Urine Protein 30 H (Neg-Trace) mg/dL Urine Glucose (UA) 150 H (Negative) mg/dL Urine Ketones Negative (Negative) mg/dL Urine Occult Blood Small H (Negative) Urine Nitrate Negative (Negative) Urine Bilirubin Negative (Negative) Urine Urobilinogen Less than 2 (Less than 2) mg/dL Ur Leukocyte Esterase Negative (Negative) Urine RBC 2 (0-3) /hpf Urine WBC 9 H (0-5) /hpf Urine WBC Clumps Occasional H (None) Ur Squamous Epith Cells 1 (0-5) /hpf Hyaline Casts 1 (0-3) /lpf Ur Microscopic Review Not Reportable 10/12/18 10/12/18 10/12/18 Range/Units 00:04 00:50 02:05 WBC (4.0-11.0) th/mm3 RBC (4.00-5.30) mil/mm3 Hgb (11.6-15.3) gm/dL Hct (35.0-46.0) % MCV (80.0-100.0) fL MCH (27.0-34.0) pg MCHC (32.0-36.0) % RDW (11.6-17.2) % Plt Count (150-450) th/mm3 MPV (7.0-11.0) fL Prelim Diff (Auto) Neut % (Auto) (16.0-70.0) % Lymph % (Auto) (9.0-44.0) % [place] % (Auto) (0.0-8.0) % Eos % (Auto) (0.0-4.0) % Baso % (Auto) (0.0-2.0) % Neut # (Auto) (1.8-7.7) th/mm3 Lymph # (Auto) (1.0-4.8) th/mm3 [place] # (Auto) (0.0-0.9) th/mm3 Eos # (Auto) (0.0-0.4) th/mm3 Baso # (Auto) (0.0-0.2) th/mm3 WBC Differential Seg Neuts % (Manual) (16-70) % Band Neuts % (Manual) (0-6) % Lymphocytes % (Manual) (9-44) % Monocytes % (Manual) (0-8) % Eosinophils % (Manual) (0-4) % Basophils % (Manual) (0-2) % Metamyelocytes % (Man) (0-1) % Abs Neuts (Manual) (1.8-7.7) th/mm3 Differential Comment Platelet Estimate (Normal) Platelet Morphology (Normal) Puncture Site Right radial Patient Temperature 98.6 O2 Saturation 97 (90-100) % ABG pH 7.22 L* (7.380-7.420) ABG pCO2 54 H* (38-42) mmHg ABG pO2 122 H (61-120) mmHg ABG HCO3 22 (22-26) mmol/L ABG O2 Content 18.6 (12.0-20.0) Vol % ABG Base Excess -4.9 L (-2-2) mmol/L ABG Methemoglobin 0.6 (0-2) % Roman Test Present Hemoglobin 13.6 (12.0-16.0) G/DL Carboxyhemoglobin 0.6 (0-4) % O2 Delivery Device Ventilator Vent Setting See comments Inspired O2 40 % Critical Value Yes Sodium (136-145) meq/L Potassium (3.5-5.1) meq/L Chloride (98-107) meq/L Carbon Dioxide (21.0-32.0) meq/L Anion Gap (5-15) meq/L BUN (7-18) mg/dL Creatinine (0.50-1.00) mg/dL Estimated GFR (>89) mL/min POC Glucose (68-110) mg/dl Random Glucose (74-106) mg/dL Calcium (8.5-10.1) mg/dL Calcium Adj for Albumin (8.5-10.1) mg/dL Total Bilirubin (0.2-1.0) mg/dL AST (15-37) U/L ALT (10-53) U/L Alkaline Phosphatase (45-117) U/L Total Creatine Kinase 206 H (26-192) U/L CK-MB (CK-2) 4.3 H (0.5-3.6) ng/mL CK-MB (CK-2) % 2.1 (0.0-4.0) % Troponin I 0.66 H* D (0.02-0.05) ng/mL B-Natriuretic Peptide 62 (0-100) pg/mL Total Protein (6.4-8.2) g/dL Albumin (3.4-5.0) g/dL Urine Color (Yellw/Straw) Urine Clarity (Clear) Urine pH (5.0-8.5) Ur Specific [place] (1.002-1.035) Urine Protein (Neg-Trace) mg/dL Urine Glucose (UA) (Negative) mg/dL Urine Ketones (Negative) mg/dL Urine Occult Blood (Negative) Urine Nitrate (Negative) Urine Bilirubin (Negative) Urine Urobilinogen (Less than 2) mg/dL Ur Leukocyte Esterase (Negative) Urine RBC (0-3) /hpf Urine WBC (0-5) /hpf Urine WBC Clumps (None) Ur Squamous Epith Cells (0-5) /hpf Hyaline Casts (0-3) /lpf Ur Microscopic Review 10/12/18 Range/Units 02:42 WBC (4.0-11.0) th/mm3 RBC (4.00-5.30) mil/mm3 Hgb (11.6-15.3) gm/dL Hct (35.0-46.0) % MCV (80.0-100.0) fL MCH (27.0-34.0) pg MCHC (32.0-36.0) % RDW (11.6-17.2) % Plt Count (150-450) th/mm3 MPV (7.0-11.0) fL Prelim Diff (Auto) Neut % (Auto) (16.0-70.0) % Lymph % (Auto) (9.0-44.0) % [place] % (Auto) (0.0-8.0) % Eos % (Auto) (0.0-4.0) % Baso % (Auto) (0.0-2.0) % Neut # (Auto) (1.8-7.7) th/mm3 Lymph # (Auto) (1.0-4.8) th/mm3 [place] # (Auto) (0.0-0.9) th/mm3 Eos # (Auto) (0.0-0.4) th/mm3 Baso # (Auto) (0.0-0.2) th/mm3 WBC Differential Seg Neuts % (Manual) (16-70) % Band Neuts % (Manual) (0-6) % Lymphocytes % (Manual) (9-44) % Monocytes % (Manual) (0-8) % Eosinophils % (Manual) (0-4) % Basophils % (Manual) (0-2) % Metamyelocytes % (Man) (0-1) % Abs Neuts (Manual) (1.8-7.7) th/mm3 Differential Comment Platelet Estimate (Normal) Platelet Morphology (Normal) Puncture Site Patient Temperature O2 Saturation (90-100) % ABG pH (7.380-7.420) ABG pCO2 (38-42) mmHg ABG pO2 (61-120) mmHg ABG HCO3 (22-26) mmol/L ABG O2 Content (12.0-20.0) Vol % ABG Base Excess (-2-2) mmol/L ABG Methemoglobin (0-2) % Roman Test Hemoglobin (12.0-16.0) G/DL Carboxyhemoglobin (0-4) % O2 Delivery Device Vent Setting Inspired O2 % Critical Value Sodium (136-145) meq/L Potassium (3.5-5.1) meq/L Chloride (98-107) meq/L Carbon Dioxide (21.0-32.0) meq/L Anion Gap (5-15) meq/L BUN (7-18) mg/dL Creatinine (0.50-1.00) mg/dL Estimated GFR (>89) mL/min POC Glucose 126 H (68-110) mg/dl Random Glucose (74-106) mg/dL Calcium (8.5-10.1) mg/dL Calcium Adj for Albumin (8.5-10.1) mg/dL Total Bilirubin (0.2-1.0) mg/dL AST (15-37) U/L ALT (10-53) U/L Alkaline Phosphatase (45-117) U/L Total Creatine Kinase (26-192) U/L CK-MB (CK-2) (0.5-3.6) ng/mL CK-MB (CK-2) % (0.0-4.0) % Troponin I (0.02-0.05) ng/mL B-Natriuretic Peptide (0-100) pg/mL Total Protein (6.4-8.2) g/dL Albumin (3.4-5.0) g/dL Urine Color (Yellw/Straw) Urine Clarity (Clear) Urine pH (5.0-8.5) Ur Specific [place] (1.002-1.035) Urine Protein (Neg-Trace) mg/dL Urine Glucose (UA) (Negative) mg/dL Urine Ketones (Negative) mg/dL Urine Occult Blood (Negative) Urine Nitrate (Negative) Urine Bilirubin (Negative) Urine Urobilinogen (Less than 2) mg/dL Ur Leukocyte Esterase (Negative) Urine RBC (0-3) /hpf Urine WBC (0-5) /hpf Urine WBC Clumps (None) Ur Squamous Epith Cells (0-5) /hpf Hyaline Casts (0-3) /lpf Ur Microscopic Review Imaging Data Radiologist's impression: Chest X-Ray 10/11/18 23:42 CONCLUSION: Chronic interstitial changes. No acute infiltrate demonstrated. Head CT 10/12/18 00:00 CONCLUSION: 1. No acute intracranial abnormality demonstrated. 2. Atrophy. 3. Chronic appearing sinusitis. . Discharge Plan Discharge Disposition Patient Disposition: ED Admit(ED Internal Use Only) Discharge Condition Condition: Stable Discharge Order Discharge Orders: ED Use Only Admit Order (Routine); Ordered 10/12/18 Ordered By: Carlos Washington Discharge Details Diagnosis: Shortness of breath, COPD (chronic obstructive pulmonary disease) Physicians Team ED Provider: Carlos Washington Primary Care Provider: Yen Ed,[facility] [place] Attending Provider: Sharan Mixon Other Providers: Melinda Short Status ED Status: Left Department Discharge Information Discharge Date/Time: 10/12/18 02:35
[2018-10-12 00:20] LABS: Baso # (Auto) 0.2 th/mm3 (0.0-0.2); Baso % (Auto) 1.2 % (0.0-2.0); Eos # (Auto) 1.4 th/mm3 (0.0-0.4); Eos % (Auto) 8.6 % (0.0-4.0); Hematocrit 39.6 % (35.0-46.0); Hemoglobin 13.5 gm/dL (11.6-15.3); Lymph # (Auto) 3.3 th/mm3 (1.0-4.8); Lymph % (Auto) 21.1 % (9.0-44.0); Mean Corpuscular HGB Conc 34.1 % (32.0-36.0); Mean Corpuscular Hemoglobin 34.8 pg (27.0-34.0); Mean Platelet Volume 7.7 fL (7.0-11.0); Mono # (Auto) 1.1 th/mm3 (0.0-0.9); Mono % (Auto) 7.2 % (0.0-8.0); Neut # (Auto) 9.8 th/mm3 (1.8-7.7); Neut % (Auto) 61.9 % (16.0-70.0); Platelet Count 335 th/mm3 (150-450); Red Blood Count 3.89 mil/mm3 (4.00-5.30); Red Cell Distribution Width 13.3 % (11.6-17.2); White Blood Count 15.8 th/mm3 (4.0-11.0)
[2018-10-12 00:21] LABS: Bilirubin,Urine Negative (Negative); Clarity,Urine Hazy (Clear); Color,Urine Yellow (Yellw/Straw); Glucose,Urine (UA) 150 mg/dL (Negative); Hyaline Casts,Urine 1 /lpf (0-3); Leukocyte Esterase,Urine Negative (Negative); Nitrite,Urine Negative (Negative); Specific Gravity,Urine 1.012 (1.002-1.035); Squamous Epithelial Cell,Urine 1 /hpf (0-5)
[2018-10-12 00:33] LABS: Albumin 3.1 g/dL (3.4-5.0); Calcium 7.2 mg/dL (8.5-10.1); Carbon Dioxide 22.7 meq/L (21.0-32.0); Potassium 4.2 meq/L (3.5-5.1); Total Protein 6.7 g/dL (6.4-8.2); Troponin I 0.07 ng/mL (0.02-0.05)
[2018-10-12 01:14] LABS: Eosinophils 7 % (0-4); Lymphocytes 23 % (9-44); Metamyelocytes 2 % (0-1); Monocytes 5 % (0-8)
[2018-10-12 01:15] LABS: Platelet Estimate Normal (Normal); Platelet Morphology Normal (Normal)
--- NOTE | 2018-10-12 01:15 | CT ---
EXAM DATE: 10/12/2018 1:04 AM EST AGE/SEX: 78 years / Female INDICATIONS: Altered mental status. CLINICAL DATA: This is the patient's initial encounter. Patient reports that signs and symptoms have been present for 1 day and indicates a pain score of Nonresponsive. MEDICAL/SURGICAL HISTORY: Non-responsive. Non-responsive. RADIATION DOSE: 32.99 CTDI (mGy) COMPARISON: No prior exams available for comparison. TECHNIQUE: CT of the head without contrast. Using automated exposure control and adjustment of the mA and/or kV according to patient size, radiation dose was kept as low as reasonably achievable to ob tain optimal diagnostic quality images. DICOM format image data is available electronically for revi ew and comparison. FINDINGS: Cerebrum: The ventricles are normal for age. No evidence of midline shift, mass lesion, hemorrhage or acute infarction. No extraaxial fluid collections are seen. Atrophy is present. Posterior Fossa: The cerebellum and brainstem are intact. The 4th ventricle is midline. The cerebe llopontine angle is unremarkable. Extracranial: The visualized portion of the orbits is intact. There is mucoperiosteal thickening of the visualized ethmoid, sphenoid and maxillary sinuses. Mastoid air cells are clear. Skull: The calvaria is intact. No evidence of skull fracture. CONCLUSION: 1. No acute intracranial abnormality demonstrated. 2. Atrophy. 3. Chronic appearing sinusitis. . Electronically signed by: Paul Bowles MD Board Certified Radiologist 10/12/2018 1:13 AM EST
[2018-10-12 01:16] LABS: ABG Base Excess -4.9 mmol/L (-2-2); ABG PCO2 54 mmHg (38-42); ABG PO2 122 mmHg (61-120)
[2018-10-12] MEDS ORDERED: Bisacodyl 10 MG Supp RECTAL PRN (01:31)
[2018-10-12] MEDS ORDERED: Dextrose 50% in Water 50 ML Vial IV.PUSH PRN (01:31)
[2018-10-12] MEDS ORDERED: hydrALAZINE HCl Inj 20 MG/ML Vial IV.PUSH PRN (01:31)
--- NOTE | 2018-10-12 01:38 | P.HPCC ---
History of Present Illness Service: Critical care medicine Primary Care Physician: Mayra Barlow Ed Chief Complaint: shortness of breath History of Present Illness: 78yF with history of severe COPD presents with 1 day history of acute worsening SOB. Per ER reports, EMS stated patient was unresponsive and they emergently intubated her. In the ER, she had a respiratory acidosis by ABG. however, after iv steroids and nebs, she was awake and alert, oriented, following commands. after a short spontaneous breathing trial, and consultation with the ER physician, myself, and respiratory therapy, the patient was successfully extubated and placed on nc o2. She is unlabored and awake, alert. she endorses SOB. denies fever, chills. denies sputum production. denies chest pain, sob. denies n/v/c/d or abd pain. has otherwise been in her usual state of health. no sick contacts. CXR without infiltrate. trop slightly elevated. remainder of the ROS negative. Review of Systems All other systems reviewed negative except as stated in HPI [facility] - History History Provided By: Patient, Medical Record, Sports Physician / EMT - Medical History Medical History: Medical History (Last Reviewed 10/12/18 @ 03:06 by Sharan Mixon MD) COPD (chronic obstructive pulmonary disease) - Family History Family History: Family History (Last Updated 10/12/18 @ 03:06 by Sharan Mixon MD) Other Family history non-contributory - Tobacco History Smoking Status: Unknown if ever smoked - Alcohol History How Often Do You Have a Drink Containing Alcohol: Unable to Obtain - Substance Use History Substance History: Unable to Obtain - Travel History Recent Travel in the [place] Within the Last 8 Weeks: No Recent Travel Out of the Country Within the Last 8 Weeks: No - Immunization History Tetanus Immunization: Unable to Assess Medications and Allergies Active Medications: Active Medications Acetaminophen (Tylenol) 650 mg PO Q6H PRN PRN Reason: TEMPERATURE > 101 F Albuterol (Duoneb Neb (Prn)) 1 ampul NEB Q2HR NEB PRN PRN Reason: WHEEZING Albuterol (Duoneb Neb (Henna)) 1 ampul NEB Q4HR NEB HENNA Bisacodyl (Dulcolax Supp) 10 mg RECTAL DAILY PRN PRN Reason: if no BM in last 24h Chlorhexidine Gluconate (Chlorhexidine 2% Cloth) 3 pack TOPICAL DAILY@0400 HENNA Stop: 10/17/18 03:59 Chlorhexidine Gluconate (Chlorhexidine 2% Cloth) 3 pack TOPICAL DAILY@0400 PRN PRN Reason: Extra cloth needed Stop: 10/17/18 03:59 Dextrose (D50w Vial) 50 ml IV.PUSH UNSCH PRN PRN Reason: PER HYPOGLYCEMIA PROTOCOL Famotidine (Pepcid) 20 mg PO BID HENNA Glucagon (Glucagon Inj) 1 mg OTHER PRN PRN PRN Reason: for Hypoglycemia Protocol Heparin Sodium (Porcine) (Heparin Inj) 5,000 units SQ Q8HR HENNA Hydralazine HCl (Apresoline Inj) 10 mg IV.PUSH Q30M PRN PRN Reason: sbp > 160, dbp > 95 Propofol (Diprivan 1000 Mg/100 Ml Inj) 1,000 mg in 100 mls @ 2.177 mls/hr IV.CONT TITRATE PRN; Protocol PRN Reason: Per Protocol Last Titration: 10/12/18 01:12 Dose: 40 mcg/kg/min, 17.42 mls/hr Insulin Human Regular (Novolin R Correctional Sugar Inj) 0 units SQ ACHS AND 3AM HENNA; Protocol Lactulose (Lactulose Liq) 30 ml PO BID HENNA Methylprednisolone Sodium Succinate (Solumedrol Inj) 40 mg IV.PUSH Q6H HENNA Ondansetron HCl (Zofran Inj) 4 mg IV.PUSH Q6H PRN PRN Reason: NAUSEA OR VOMITING Polyethylene Glycol (Miralax) 17 gm PO BID HENNA Senna/Docusate Sodium (Kristie-Colace) 1 tab PO BID HENNA Sodium Chloride (Ns Flush) 2 ml IV.FLUSH UNSCH PRN PRN Reason: FLUSH AFTER USING IV ACCESS Allergies Allergy/AdvReac Type Severity Reaction Status Date / Time penicillin G Allergy Severe Anaphylaxis Verified 10/11/18 23:34 Home Medications Medication Instructions Recorded Confirmed Type albuterol sulfate [Ventolin HFA] 2 puff INHALATION Q4-6H PRN 10/12/18 10/12/18 History alendronate 70 mg PO QWEEK 10/12/18 10/12/18 History alprazolam 0.25 mg PO BID PRN 10/12/18 10/12/18 History escitalopram oxalate 15 mg PO DAILY 10/12/18 10/12/18 History ipratropium-albuterol 3 ml INHALATION Q6-8H PRN 10/12/18 10/12/18 History tramadol 50 mg PO TID PRN 10/12/18 10/12/18 History zolpidem 5 mg PO HS 10/12/18 10/12/18 History Results - Labs CBC & Chem 7: 10/11/18 23:55 10/11/18 23:55 Labs: Short CBC 10/11/18 Range/Units 23:55 WBC 15.8 H (4.0-11.0) th/mm3 Hgb 13.5 (11.6-15.3) gm/dL Hct 39.6 (35.0-46.0) % Plt Count 335 (150-450) th/mm3 BMP 10/11/18 23:55 Sodium 143 Potassium 4.2 Chloride 109 H Carbon Dioxide 22.7 BUN 9 Creatinine 0.89 Calcium 7.2 L* Cardiac Enzymes 10/11/18 Range/Units 23:55 Total Creatine Kinase 111 (26-192) U/L Troponin I 0.07 H (0.02-0.05) ng/mL Liver Function 10/11/18 Range/Units 23:55 Total Bilirubin 0.3 (0.2-1.0) mg/dL AST 108 H (15-37) U/L ALT 66 H (10-53) U/L Alkaline Phosphatase 68 (45-117) U/L Albumin 3.1 L (3.4-5.0) g/dL Urine 10/11/18 Range/Units 23:55 Urine Color Yellow (Yellw/Straw) Urine Clarity Hazy H (Clear) Urine pH 5.0 (5.0-8.5) Ur Specific [place] 1.012 (1.002-1.035) Urine Protein 30 H (Neg-Trace) mg/dL Urine Glucose (UA) 150 H (Negative) mg/dL - Imaging Impressions Chest X-Ray 10/11/18 23:42 CONCLUSION: Chronic interstitial changes. No acute infiltrate demonstrated. Head CT 10/12/18 00:00 CONCLUSION: 1. No acute intracranial abnormality demonstrated. 2. Atrophy. 3. Chronic appearing sinusitis. . Exam Vital signs: Vital Signs 10/11/18 23:25 10/11/18 23:35 10/11/18 23:39 Pulse Rate 100 H 110 H Respiratory Rate 32 H 18 14 Blood Pressure 167/83 H 173/89 H Pulse Oximetry 100 10/11/18 23:54 10/12/18 00:04 10/12/18 00:09 Pulse Rate 108 H 106 H 102 H Respiratory Rate 14 14 14 Blood Pressure 152/68 H 173/72 H 121/56 L Pulse Oximetry 96 98 97 10/12/18 00:24 10/12/18 00:25 10/12/18 01:02 Pulse Rate 104 H 101 H 109 H Respiratory Rate 29 H 14 18 Blood Pressure 110/58 L 127/73 Pulse Oximetry 98 98 100 10/12/18 01:13 10/12/18 01:31 Pulse Rate 10 L 99 H Respiratory Rate 18 22 Blood Pressure 131/60 127/61 Pulse Oximetry 100 96 Intake & Output 10/11/18 10/11/18 10/12/18 06:59 18:59 06:59 Weight 72.575 kg Narrative: GENERAL: Elderly female, sitting up in bed recently extubated, no acute distress , awake, alert, and oriented HEENT: Normocephalic. Atraumatic. Pupils equal, round, reactive, conjugate. Mucous membranes are moist NECK: Trachea is midline. There is no JVD. CHEST: Nasal cannula oxygen. Unlabored. Equal chest rise. Clear to auscultation. CARDIOVASCULAR: Normal rate, regular rhythm. Sinus by telemetry. ABDOMEN: Soft, nontender, nondistended. No guarding. MUSCULOSKELETAL: Pulses 2+. No peripheral edema. NEUROLOGICAL: RASS 0. CAM -. Recently extubated. Awake, alert, oriented x3. Follows commands in all 4 extremities. No focal deficits. Septic Shock Reassessment Septic shock perfusion: reassessment completed Caprini VTE Risk Assessment Caprini VTE Risk Assessment: Moderate/High Risk (score >= 2) Caprini Risk Assessment Model: Point Value = 1 Point Value = 2 Point Value = 3 Point Value = 5 Age 41-60 Minor surgery BMI > 25 kg/m2 Swollen legs Varicose veins or History of unexplained or recurrent spontaneous Oral contraceptives or hormone replacement Sepsis (< 1 month) Serious lung disease, including pneumonia (< 1 month) Abnormal pulmonary function Acute myocardial infarction Congestive heart failure (< 1 month) History of inflammatory bowel disease Medical patient at bed rest Age 61-74 Arthroscopic surgery Major open surgery (> 45 min) Laparoscopic surgery (> 45 min) Malignancy Confined to bed (> 72 hours) Immobilizing plaster cast Central venous access Age >= 75 History of VTE Family history of VTE Factor V Leiden Prothrombin [id number] Lupus anticoagulant Anticardiolipin antibodies Elevated serum homocysteine Heparin-induced thrombocytopenia Other congenital or acquired thrombophilia Stroke (< 1 month) Elective arthroplasty Hip, pelvis, or leg fracture Acute spinal cord injury (< 1 month) Prophylaxis Regimen: Total Risk Factor Score Risk Level Prophylaxis Regimen 0-1 Low Early ambulation 2 Moderate Order ONE of the following: *Sequential Compression Device (SCD) *Heparin 5000 units SQ BID 3-4 Higher Order ONE of the following medications: *Heparin 5000 units SQ TID *Enoxaparin/Lovenox 40 mg SQ daily (WT < 150 kg, CrCl > 30 mL/min) *Enoxaparin/Lovenox 30 mg SQ daily (WT < 150 kg, CrCl > 10-29 mL/min) *Enoxaparin/Lovenox 30 mg SQ BID (WT < 150 kg, CrCl > 30 mL/min) AND/OR *Sequential Compression Device (SCD) 5 or more Highest Order ONE of the following medications: *Heparin 5000 units SQ TID (Preferred with Epidurals) *Enoxaparin/Lovenox 40 mg SQ daily (WT < 150 kg, CrCl > 30 mL/min) *Enoxaparin/Lovenox 30 mg SQ daily (WT < 150 kg, CrCl > 10-29 mL/min) *Enoxaparin/Lovenox 30 mg SQ BID (WT < 150 kg, CrCl > 30 mL/min) AND *Sequential Compression Device (SCD) Assessment and Plan - Assessment and Plan Plan: Assessment: 78-year-old female with a history of COPD who presents with acute severe COPD exacerbation. Clinically appears to be improving. Will admit to stepdown unit for close monitoring. Continue IV steroids and nebs. Active problems: Acute hypoxic and hypercarbic respiratory failure- resolving Acute severe COPD exacerbation Plan: admit to step-down unit continue iv steroids serial nebs no infectious etiology suspected- will hold off on abx check influenza swab aggressive pulmonary toilet PT consult bedside swallow eval and advance diet OOB with assist d/c nikcie would be good candidate for BiPAP if she needs additional respiratory support wean o2 by NC for goal spo2 > 90% SCDs pepcid SQH dispo: will ask hospitalist service to assume care.
[2018-10-12] MEDS: MethylPREDNISolone Sod Succinate Inj 40 MG/ML Vial IV.PUSH SCH ×3 (02:07→14:43)
[2018-10-12 02:35] LABS: Troponin I 0.66 ng/mL (0.02-0.05)
[2018-10-12 02:47] LABS: CKMB Percent 2.1 % (0.0-4.0); Creatine Kinase MB 4.3 ng/mL (0.5-3.6)
[2018-10-12] MEDS: Insulin NovoLIN Regular Correctional Sugar Inj SQ SCH ×5 (02:58→21:15)
[2018-10-12] MEDS: Chlorhexidine Gluconate 2% 1 Pack (2 Cloths) TOPICAL SCH (03:43)
[2018-10-12] MEDS ORDERED: Chlorhexidine Gluconate 2% 1 Pack (2 Cloths) TOPICAL PRN (04:00)
[2018-10-12] MEDS: Heparin - SQ 10,000 UNITS/ML Vial SQ SCH ×2 (05:44→14:43)
[2018-10-12] MEDS: Acetaminophen 325 MG Tablet PO PRN ×2 (08:23→14:43)
[2018-10-12] MEDS: Famotidine 20 MG Tablet PO SCH ×2 (08:23→21:16)
[2018-10-12] MEDS: Sodium Chloride 0.9% 2 ML Flush BID IV.FLUSH SCH ×2 (08:24→21:16)
--- NOTE | 2018-10-12 08:25 | ECG ---
Date Performed: 10/11/2018 Time Performed: 23:37:28 PTAGE: 78 years EKG: Sinus rhythm LOW QRS VOLTAGE IN EXTREMITY LEADS SEPTAL MYOCARDIAL INFARCTION ABNORMAL ECG PREVIOUS TRACING : 02/23/2018 16.06 Since the previous tracing, no significant change noted DOCTOR: Shaka Pedro Interpretating Date/Time 10/12/2018 08:24:52
[2018-10-12] MEDS: Polyethylene Glycol 3350 17 GM Packet PO SCH ×2 (08:26→21:13)
[2018-10-12] MEDS ORDERED: Senna/Docusate Sodium 8.6/50 MG Tablet PO SCH (09:00)
[2018-10-12] MEDS: Escitalopram 10 MG Tablet PO SCH (09:43)
[2018-10-12 12:19] LABS: Troponin I 0.8 ng/mL (0.02-0.05)
[2018-10-12 12:31] LABS: CKMB Percent 1.4 % (0.0-4.0); Creatine Kinase MB 4.9 ng/mL (0.5-3.6)
--- NOTE | 2018-10-12 12:35 | P.PN ---
Subjective Interval history: Follow-up acute hypoxic and hypercapnic respiratory failure/acute severe COPD exacerbation/elevated cardiac enzymes October 12, 2018-patient seen and examined reports significant improvement of shortness of breath and currently denies any chest pain. Cardiac enzyme elevated. Physical Exam Vital signs: Vital Signs 10/11/18 23:25 10/11/18 23:35 10/11/18 23:39 Temperature Pulse Rate 100 H 110 H Respiratory Rate 32 H 18 14 Blood Pressure 167/83 H 173/89 H Pulse Oximetry 100 10/11/18 23:54 10/12/18 00:04 10/12/18 00:09 Temperature Pulse Rate 108 H 106 H 102 H Respiratory Rate 14 14 14 Blood Pressure 152/68 H 173/72 H 121/56 L Pulse Oximetry 96 98 97 10/12/18 00:24 10/12/18 00:25 10/12/18 01:00 Temperature Pulse Rate 104 H 101 H Respiratory Rate 29 H 14 Blood Pressure 110/58 L Pulse Oximetry 98 98 97 10/12/18 01:02 10/12/18 01:13 10/12/18 01:25 Temperature Pulse Rate 109 H 10 L Respiratory Rate 18 18 Blood Pressure 127/73 131/60 Pulse Oximetry 100 100 97 10/12/18 01:31 10/12/18 01:40 10/12/18 02:08 Temperature Pulse Rate 99 H 97 H Respiratory Rate 22 20 Blood Pressure 127/61 119/56 L Pulse Oximetry 96 97 97 10/12/18 02:09 10/12/18 03:00 10/12/18 03:14 Temperature Pulse Rate 93 H Respiratory Rate Blood Pressure Pulse Oximetry 97 93 L 98 10/12/18 04:00 10/12/18 05:00 10/12/18 06:00 Temperature 97.7 F Pulse Rate 90 96 H 89 Respiratory Rate 24 Blood Pressure 127/74 Pulse Oximetry 93 L 10/12/18 07:00 10/12/18 08:00 10/12/18 08:57 Temperature 98.6 F Pulse Rate 82 98 H Respiratory Rate 24 20 Blood Pressure 153/78 H Pulse Oximetry 96 10/12/18 09:00 10/12/18 09:04 10/12/18 09:26 Temperature Pulse Rate 93 H 92 H Respiratory Rate Blood Pressure Pulse Oximetry 98 10/12/18 11:00 10/12/18 11:42 10/12/18 11:49 Temperature 98.4 F Pulse Rate 91 H 88 101 H Respiratory Rate 15 22 Blood Pressure 157/78 H Pulse Oximetry 96 Intake & Output 10/11/18 10/12/18 10/12/18 18:59 06:59 18:59 Intake Total 120 / 120 Output Total 400 / 400 Balance -280 / -280 Weight 72.4 kg Intake: Oral 120 / 120 Output: Urine 300 / 300 Urine Amount (Catheter) 100 / 100 Indwelling Urethral Catheter 100 / 100 Other: # Incontinent Voids 1 Date of Last Bowel Movement 10/12/18 # Bowel Movements 1 Narrative: GENERAL: Elderly female HEENT: Normocephalic. Atraumatic. Pupils equal, round, reactive, conjugate. Mucous membranes are moist NECK: Trachea is midline. There is no JVD. CHEST: Nasal cannula oxygen. Unlabored. Equal chest rise. Clear to auscultation. CARDIOVASCULAR: Normal rate, regular rhythm. ABDOMEN: Soft, nontender, nondistended. No guarding. MUSCULOSKELETAL: Pulses 2+. No peripheral edema. NEUROLOGICAL: Awake, alert, oriented x3. Follows commands in all 4 extremities. No focal deficits. - Urinary Catheter Management Indwelling Urethral Catheter Cath placed during this visit: yes, but has since been removed by the nurse Reason for continuing: Other continuation reason Insertion date: 10/11/18 Insertion time: 23:47 Removal date: 10/12/18 Removal time: 03:05 Results - Labs CBC & Chem 7: 10/11/18 23:55 10/11/18 23:55 Laboratory Results - last 24 hr 10/11/18 10/11/18 10/11/18 23:55 23:55 23:55 WBC 15.8 H RBC 3.89 L Hgb 13.5 Hct 39.6 MCV 102.0 H MCH 34.8 H MCHC 34.1 RDW 13.3 Plt Count 335 MPV 7.7 Prelim Diff (Auto) Slide review pending Neut % (Auto) 61.9 Lymph % (Auto) 21.1 [place] % (Auto) 7.2 Eos % (Auto) 8.6 H Baso % (Auto) 1.2 Neut # (Auto) 9.8 H Lymph # (Auto) 3.3 [place] # (Auto) 1.1 H Eos # (Auto) 1.4 H Baso # (Auto) 0.2 WBC Differential Manual diff final Seg Neuts % (Manual) 58 Band Neuts % (Manual) 3 Lymphocytes % (Manual) 23 Monocytes % (Manual) 5 Eosinophils % (Manual) 7 H Basophils % (Manual) 2 Metamyelocytes % (Man) 2 H Abs Neuts (Manual) 10.0 H Differential Comment . Platelet Estimate Normal Platelet Morphology Normal Puncture Site Patient Temperature O2 Saturation ABG pH ABG pCO2 ABG pO2 ABG HCO3 ABG O2 Content ABG Base Excess ABG Methemoglobin Roman Test Hemoglobin Carboxyhemoglobin O2 Delivery Device Vent Setting Inspired O2 Critical Value Sodium 143 Potassium 4.2 Chloride 109 H Carbon Dioxide 22.7 Anion Gap 11 BUN 9 Creatinine 0.89 Estimated GFR 62 L POC Glucose Random Glucose 212 H Calcium 7.2 L* Calcium Adj for Albumin 7.9 L Total Bilirubin 0.3 AST 108 H ALT 66 H Alkaline Phosphatase 68 Total Creatine Kinase 111 CK-MB (CK-2) CK-MB (CK-2) % Troponin I 0.07 H B-Natriuretic Peptide Total Protein 6.7 Albumin 3.1 L Urine Color Yellow Urine Clarity Hazy H Urine pH 5.0 Ur Specific [place] 1.012 Urine Protein 30 H Urine Glucose (UA) 150 H Urine Ketones Negative Urine Occult Blood Small H Urine Nitrate Negative Urine Bilirubin Negative Urine Urobilinogen Less than 2 Ur Leukocyte Esterase Negative Urine RBC 2 Urine WBC 9 H Urine WBC Clumps Occasional H Ur Squamous Epith Cells 1 Hyaline Casts 1 Ur Microscopic Review Not Reportable Nasal Screen MRSA (PCR) 10/12/18 10/12/18 10/12/18 00:04 00:50 02:05 WBC RBC Hgb Hct MCV MCH MCHC RDW Plt Count MPV Prelim Diff (Auto) Neut % (Auto) Lymph % (Auto) [place] % (Auto) Eos % (Auto) Baso % (Auto) Neut # (Auto) Lymph # (Auto) [place] # (Auto) Eos # (Auto) Baso # (Auto) WBC Differential Seg Neuts % (Manual) Band Neuts % (Manual) Lymphocytes % (Manual) Monocytes % (Manual) Eosinophils % (Manual) Basophils % (Manual) Metamyelocytes % (Man) Abs Neuts (Manual) Differential Comment Platelet Estimate Platelet Morphology Puncture Site Right radial Patient Temperature 98.6 O2 Saturation 97 ABG pH 7.22 L* ABG pCO2 54 H* ABG pO2 122 H ABG HCO3 22 ABG O2 Content 18.6 ABG Base Excess -4.9 L ABG Methemoglobin 0.6 Roman Test Present Hemoglobin 13.6 Carboxyhemoglobin 0.6 O2 Delivery Device Ventilator Vent Setting See comments Inspired O2 40 Critical Value Yes Sodium Potassium Chloride Carbon Dioxide Anion Gap BUN Creatinine Estimated GFR POC Glucose Random Glucose Calcium Calcium Adj for Albumin Total Bilirubin AST ALT Alkaline Phosphatase Total Creatine Kinase 206 H CK-MB (CK-2) 4.3 H CK-MB (CK-2) % 2.1 Troponin I 0.66 H* D B-Natriuretic Peptide 62 Total Protein Albumin Urine Color Urine Clarity Urine pH Ur Specific [place] Urine Protein Urine Glucose (UA) Urine Ketones Urine Occult Blood Urine Nitrate Urine Bilirubin Urine Urobilinogen Ur Leukocyte Esterase Urine RBC Urine WBC Urine WBC Clumps Ur Squamous Epith Cells Hyaline Casts Ur Microscopic Review Nasal Screen MRSA (PCR) 10/12/18 10/12/18 10/12/18 02:42 02:45 07:42 WBC RBC Hgb Hct MCV MCH MCHC RDW Plt Count MPV Prelim Diff (Auto) Neut % (Auto) Lymph % (Auto) [place] % (Auto) Eos % (Auto) Baso % (Auto) Neut # (Auto) Lymph # (Auto) [place] # (Auto) Eos # (Auto) Baso # (Auto) WBC Differential Seg Neuts % (Manual) Band Neuts % (Manual) Lymphocytes % (Manual) Monocytes % (Manual) Eosinophils % (Manual) Basophils % (Manual) Metamyelocytes % (Man) Abs Neuts (Manual) Differential Comment Platelet Estimate Platelet Morphology Puncture Site Patient Temperature O2 Saturation ABG pH ABG pCO2 ABG pO2 ABG HCO3 ABG O2 Content ABG Base Excess ABG Methemoglobin Roman Test Hemoglobin Carboxyhemoglobin O2 Delivery Device Vent Setting Inspired O2 Critical Value Sodium Potassium Chloride Carbon Dioxide Anion Gap BUN Creatinine Estimated GFR POC Glucose 126 H 134 H Random Glucose Calcium Calcium Adj for Albumin Total Bilirubin AST ALT Alkaline Phosphatase Total Creatine Kinase CK-MB (CK-2) CK-MB (CK-2) % Troponin I B-Natriuretic Peptide Total Protein Albumin Urine Color Urine Clarity Urine pH Ur Specific [place] Urine Protein Urine Glucose (UA) Urine Ketones Urine Occult Blood Urine Nitrate Urine Bilirubin Urine Urobilinogen Ur Leukocyte Esterase Urine RBC Urine WBC Urine WBC Clumps Ur Squamous Epith Cells Hyaline Casts Ur Microscopic Review Nasal Screen MRSA (PCR) Not detected 10/12/18 10/12/18 10:42 11:15 WBC RBC Hgb Hct MCV MCH MCHC RDW Plt Count MPV Prelim Diff (Auto) Neut % (Auto) Lymph % (Auto) [place] % (Auto) Eos % (Auto) Baso % (Auto) Neut # (Auto) Lymph # (Auto) [place] # (Auto) Eos # (Auto) Baso # (Auto) WBC Differential Seg Neuts % (Manual) Band Neuts % (Manual) Lymphocytes % (Manual) Monocytes % (Manual) Eosinophils % (Manual) Basophils % (Manual) Metamyelocytes % (Man) Abs Neuts (Manual) Differential Comment Platelet Estimate Platelet Morphology Puncture Site Patient Temperature O2 Saturation ABG pH ABG pCO2 ABG pO2 ABG HCO3 ABG O2 Content ABG Base Excess ABG Methemoglobin Roman Test Hemoglobin Carboxyhemoglobin O2 Delivery Device Vent Setting Inspired O2 Critical Value Sodium Potassium Chloride Carbon Dioxide Anion Gap BUN Creatinine Estimated GFR POC Glucose 121 H Random Glucose Calcium Calcium Adj for Albumin Total Bilirubin AST ALT Alkaline Phosphatase Total Creatine Kinase 348 H CK-MB (CK-2) CK-MB (CK-2) % Troponin I 0.80 H* D B-Natriuretic Peptide Total Protein Albumin Urine Color Urine Clarity Urine pH Ur Specific [place] Urine Protein Urine Glucose (UA) Urine Ketones Urine Occult Blood Urine Nitrate Urine Bilirubin Urine Urobilinogen Ur Leukocyte Esterase Urine RBC Urine WBC Urine WBC Clumps Ur Squamous Epith Cells Hyaline Casts Ur Microscopic Review Nasal Screen MRSA (PCR) Microbiology 10/12/18 02:05 Nasal Wash Influenza Types A,B Antigen - Final Negative for FLU A and B antigen Infection due to influenza A or B cannot be ruled out since the antigen present in the sample may be below the detection limit of the test. - Imaging Impressions Chest X-Ray 10/11/18 23:42 CONCLUSION: Chronic interstitial changes. No acute infiltrate demonstrated. Head CT 10/12/18 00:00 CONCLUSION: 1. No acute intracranial abnormality demonstrated. 2. Atrophy. 3. Chronic appearing sinusitis. . Assessment and Plan - Plan 78-year-old female with Acute hypoxic and hypercapnic respiratory failure Resolved patient was extubated yesterday DuoNeb as needed Acute severe COPD exacerbation Currently on Solu-Medrol 40 mg every 6 hours Start Symbicort, Spiriva, Levaquin, DuoNeb scheduled and as needed Pulmonary medicine consultation pending Continue aggressive pulmonary toilet Tobacco cessation strongly advised Elevated cardiac enzyme May be secondary to demand ischemia vs acute COPD exacerbation However, we will consult cardiology for further evaluation Check 2D echo Leukocytosis No sign of infection Continue to hold on antibiotics Anxiety Resume Lexapro DVT prophylaxis: Heparin subcu PT to treat and eval
--- NOTE | 2018-10-12 14:27 | MB ---
cc: Dawood Juárez MD DATE: 10/12/2018 REASON FOR CONSULTATION: Abnormal troponin levels. HISTORY OF PRESENT ILLNESS: The patient is a 78-year-old white female with a history of severe COPD, uterine cancer, who presented yesterday due to severe respiratory distress temporarily necessitating intubation and placement on mechanical ventilation. Cardiac enzymes were checked and found to be slightly abnormal. The patient denies chest pain, palpitations, paroxysmal nocturnal dyspnea, or orthopnea. Yesterday when her dyspnea was especially severe, she did lose consciousness briefly. In the last couple of weeks, she has noticed minimal bilateral pedal edema. PAST MEDICAL HISTORY: 1. COPD. 2. Uterine cancer, status post hysterectomy. PAST SURGICAL HISTORY: Hysterectomy. CARDIAC MEDICATIONS AT HOME: None. FAMILY HISTORY: Noncontributory. SOCIAL HISTORY: The patient smokes about a pack of cigarettes per day. She denies alcohol abuse. REVIEW OF SYSTEMS: As in history of present illness, otherwise negative or noncontributory. She also denies headache, abdominal pain, melena, dyspepsia, bright red blood per rectum, wheezing. PHYSICAL EXAMINATION: VITAL SIGNS: Her blood pressure 157/78 with a pulse of 92, respirations 22. GENERAL: She is a well-developed, well-nourished white female, in no acute distress. NECK: Jugular venous pressure is normal. Carotid pulses are 2+ bilaterally and without bruits. LUNGS: Diminished breath sounds diffusely. There are few scattered rhonchi. CARDIAC: She has a regular rhythm and rate without S3, S4, or murmur. ABDOMEN: She has a soft, nontender abdomen. Bowel sounds are present. There is no definite hepatosplenomegaly. EXTREMITIES: No clubbing, cyanosis, or edema. LABORATORY DATA: EKG shows sinus rhythm. Possible septal infarct. Chest x-ray shows no acute disease. Laboratory data includes WBC 15.8, hemoglobin 13.5, platelets 335. Potassium 4.2, BUN 9, creatinine of 0.89. AST 108, ALT 66. CK 348, with 1.4% MB fraction. Troponin 0.80. IMPRESSION: Minimally elevated troponin levels in a 78-year-old white female with a history of chronic obstructive pulmonary disease, uterine cancer, admitted with acute on chronic respiratory insufficiency. Overall, I doubt the slight elevation in troponin levels is due to acute coronary syndrome. It may be due to "demand ischemia." CK-MB percentages are negative for myocardial infarction. EKG is overall unremarkable. Except for tobacco abuse and advanced age, she has no major risk factors for coronary disease. RECOMMENDATIONS: 1. Check a 2-D echo to assess the left ventricular and valvular function. If it is unremarkable, recommend no additional cardiac workup at this time. 2. Will follow up as needed for any significant abnormalities seen on echocardiography. MD VINCE Wild/charito , 01:21 PM , 01:28 PM SUDHIR
[2018-10-12 14:57] LABS: Troponin I 0.73 ng/mL (0.02-0.05)
[2018-10-12 15:14] LABS: CKMB Percent 1.3 % (0.0-4.0); Creatine Kinase MB 4.9 ng/mL (0.5-3.6)
--- NOTE | 2018-10-12 15:16 | MB ---
cc: Kayy Castano MD DATE: 10/12/2018 REASON FOR CONSULTATION: COPD and respiratory distress. HISTORY OF PRESENT ILLNESS: This is a 78-year-old lady with a history of COPD with emphysema, was admitted via the emergency room with severe respiratory distress, unresponsiveness, and respiratory failure. The patient was in severe respiratory acidosis and required intubation and ventilator support. She was given IV Solu-Medrol, nebulizers, and was tried on a CPAP trial and subsequently extubated and placed on nasal cannula at 3L. Since then, she has been transferred to the telemetry unit and presently on oxygen via nasal cannula and seems somewhat short of breath but denies any chest pains or abdominal pains or nausea or vomiting. 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 No history of hypertension or diabetes. HABITS: The patient smoked 1 pack per day for 50 years up until recently. Alcohol use: Daily wine. FAMILY HISTORY: Father of COPD. Mother of a stroke and clots. ALLERGIES: PENICILLIN. REVIEW OF SYSTEMS: The patient has gained weight, shows leg swelling, dizziness, shortness of breath, wheezing, cough. She has epigastric distress and reflux. No urinary symptoms. No leg or calf muscle pains. She does have some depression with anxiety and uses antidepressants. MEDICATIONS LIST: 1. Albuterol nebulizers q.i.d. p.r.n. 2. Xanax 0.25 mg b.i.d. p.r.n. 3. Alendronate 70 mg weekly. 4. Escitalopram 15 mg daily. 4. Tramadol 50 mg t.i.d. p.r.n. PHYSICAL EXAMINATION: GENERAL: This is a moderately overweight, elderly lady who is dyspneic at rest. Face was plethoric. VITAL SIGNS: Blood pressure 130/70, pulse is 88, respirations 20, temperature 97.8. HEENT: Head is normocephalic. Pupils are reactive and equal. Tongue is moist. Nasal mucosa edematous. Throat is mildly injected. Ears: No inflammation. NECK: Supple. No bruits or thyroid enlargement or lymphadenopathy. CHEST: Inspiratory and expiratory wheezes scattered throughout both lung nation with prolonged expirations. Percussion note was resonant throughout. HEART: The heart sounds were regular, S1 and S2, with no murmur. No S3 gallop. ABDOMEN: Soft, protuberant, without masses. No organomegaly or tenderness. Bowel sounds are active. EXTREMITIES: No lesions, and peripheral pulses are diminished. Reflexes are 1+ with no gross motor deficits. Cranial nerves are grossly intact. SKIN: No lesions observed. IMPRESSION: 1. Acute hypoxemic respiratory failure, resolved. 3. 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 3. Depression and anxiety. PLAN: The patient will be placed on Solu-Medrol 40 mg IV q.6 hours. Also started on Levaquin 750 mg IV daily. Nebulized DuoNeb solution continued every 6 hours. PFT done at the bedside. Symbicort 160/4.5 mcg 2 puffs twice a day was added. Continue with antidepressant. A blood gas study will be obtained in a.m. We will keep her on O2 at 2L nasal cannula and ambulate her as tolerated. Thank you, Dr. aDvidson, for this consultation. Kayy Castano MD VJD/charito , 01:45 PM , 01:56 PM
[2018-10-12 19:53] LABS: Troponin I 0.72 ng/mL (0.02-0.05)
[2018-10-12 20:06] LABS: CKMB Percent 1.6 % (0.0-4.0); Creatine Kinase MB 4.8 ng/mL (0.5-3.6)
[2018-10-12] MEDS ORDERED: Budesonide-Formoterol 80/4.5 MCG 6.9 GM Inhaler INH SCH (21:00)
[2018-10-12] MEDS: Budesonide-Formoterol 160/4.5 MCG 6 GM Inhaler INH SCH (21:16)
[2018-10-13] MEDS: MethylPREDNISolone Sod Succinate Inj 40 MG/ML Vial IV.PUSH SCH ×4 (00:34→21:34)
[2018-10-13] MEDS: Heparin - SQ 10,000 UNITS/ML Vial SQ SCH ×4 (00:34→21:34)
[2018-10-13 01:17] LABS: Calcium 8.5 mg/dL (8.5-10.1); Carbon Dioxide 24.6 meq/L (21.0-32.0); Magnesium 2.1 mg/dL (1.5-2.5); Phosphorus 2.2 mg/dL (2.5-4.9); Potassium 3.5 meq/L (3.5-5.1)
[2018-10-13 01:49] LABS: CKMB Percent 1.6 % (0.0-4.0); Creatine Kinase MB 3.9 ng/mL (0.5-3.6)
[2018-10-13] MEDS: Insulin NovoLIN Regular Correctional Sugar Inj SQ SCH ×5 (04:24→21:31)
[2018-10-13] MEDS: Chlorhexidine Gluconate 2% 1 Pack (2 Cloths) TOPICAL SCH (04:31)
[2018-10-13 08:43] LABS: Baso % (Auto) 0.2 % (0.0-2.0); Eos % (Auto) 0.1 % (0.0-4.0); Hematocrit 40.9 % (35.0-46.0); Hemoglobin 13.9 gm/dL (11.6-15.3); Lymph # (Auto) 0.5 th/mm3 (1.0-4.8); Mean Corpuscular Hemoglobin 33.8 pg (27.0-34.0); Mean Corpuscular Volume 99.4 fL (80.0-100.0); Mean Platelet Volume 7.7 fL (7.0-11.0); Mono # (Auto) 0.7 th/mm3 (0.0-0.9); Mono % (Auto) 3.6 % (0.0-8.0); Neut # (Auto) 16.9 th/mm3 (1.8-7.7); Neut % (Auto) 93.1 % (16.0-70.0); Platelet Count 309 th/mm3 (150-450); Red Blood Count 4.11 mil/mm3 (4.00-5.30); Red Cell Distribution Width 13.8 % (11.6-17.2); White Blood Count 18.1 th/mm3 (4.0-11.0)
[2018-10-13] MEDS: Budesonide-Formoterol 160/4.5 MCG 6 GM Inhaler INH SCH ×2 (09:23→21:34)
[2018-10-13] MEDS: Tiotropium Bromide 18 MCG/ACT Inhaler INH SCH (09:23)
[2018-10-13] MEDS: Escitalopram 10 MG Tablet PO SCH (09:23)
[2018-10-13] MEDS: Famotidine 20 MG Tablet PO SCH ×2 (09:24→21:34)
[2018-10-13] MEDS: Sodium Chloride 0.9% 2 ML Flush BID IV.FLUSH SCH ×2 (09:24→21:35)
--- NOTE | 2018-10-13 12:32 | ECHRPT ---
Indication: SOB CONCLUSIONS Normal left ventricular size. Wall thickness is normal. The left ventricular systolic function is low normal with an estimated ejection fraction in the rang e of 50%. This study was not technically sufficient to allow for evaluation of left ventricular diastolic func tion. There was limited left ventricular wall motion assessment due to poor endocardial visualization. The estimated pulmonary arterial pressure is 19 mmHg. BP: / HR: Rhythm: MEASUREMENTS (Male / Female) Normal Values Technical Quality:Technically difficult study 2D ECHO LV Diastolic Diameter PLAX 4.6 cm 4.2 - 5.9 / 3.9 - 5.3 cm LV Systolic Diameter PLAX 3.8 cm IVS Diastolic Thickness 1.0 cm 0.6 - 1.0 / 0.6 - 0.9 cm LVPW Diastolic Thickness 0.7 cm 0.6 - 1.0 / 0.6 - 0.9 cm LV Relative Wall Thickness 0.4 RV Internal Dim ED PLAX 1.6 cm DOPPLER Mitral E Point Velocity 119.0 cm/s Mitral A Point Velocity 173.0 cm/s Mitral E to A Ratio 0.7 TR Peak Velocity 149.0 cm/s TR Peak Gradient 8.9 mmHg Right Atrial Pressure 10.0 mmHg Pulmonary Artery Systolic Pressu 18.9 mmHg Right Ventricular Systolic Press 18.9 mmHg FINDINGS LEFT VENTRICLE Normal left ventricular size. Wall thickness is normal. The left ventricular systolic function is low normal with an estimated ejection fraction in the rang e of 50%. This study was not technically sufficient to allow for evaluation of left ventricular diastolic func tion. There was limited left ventricular wall motion assessment due to poor endocardial visualization. RIGHT VENTRICLE Normal right ventricular size and systolic function. LEFT ATRIUM The left atrial size is normal. RIGHT ATRIUM The right atrial size is normal. ATRIAL SEPTUM Normal atrial septal thickness without atrial level shunting by limited color doppler interrogation. AORTA The aortic root and proximal ascending aorta are normal in size on limited imaging. MITRAL VALVE Structurally normal mitral valve. No mitral valve stenosis or regurgitation. AORTIC VALVE Trileaflet aortic valve. No aortic valve stenosis or regurgitation. TRICUSPID VALVE The estimated pulmonary arterial pressure is 19 mmHg. PULMONARY VALVE No pulmonary valve regurgitation or stenosis. VESSELS The inferior vena cava is normal in size. PERICARDIUM No pericardial effusion. David Deluna MD, FACC (Electronically Signed) Final Date:13 October 2018 12:31
--- NOTE | 2018-10-13 12:37 | P.PN ---
Subjective Interval history: She is better but still wheezing. Has some cough. No fever. On O2 3 L. C/O Pain in ribs. Physical Exam Vital signs: Vital Signs 10/12/18 13:00 10/12/18 14:00 10/12/18 15:00 Temperature Pulse Rate 103 H 97 H 92 H Respiratory Rate Blood Pressure Pulse Oximetry 10/12/18 16:00 10/12/18 16:43 10/12/18 17:00 Temperature 98.2 F Pulse Rate 100 H 95 H 83 Respiratory Rate 20 15 Blood Pressure 122/79 Pulse Oximetry 97 10/12/18 17:35 10/12/18 19:00 10/12/18 19:46 Temperature 99.4 F Pulse Rate 92 H 92 H 92 H Respiratory Rate 20 Blood Pressure 123/66 Pulse Oximetry 95 10/12/18 20:00 10/12/18 20:17 10/12/18 21:00 Temperature Pulse Rate 88 91 H 100 H Respiratory Rate 18 Blood Pressure Pulse Oximetry 95 95 10/12/18 22:00 10/12/18 23:00 10/12/18 23:43 Temperature Pulse Rate 90 90 91 H Respiratory Rate 18 Blood Pressure Pulse Oximetry 10/13/18 00:00 10/13/18 01:00 10/13/18 02:00 Temperature 99.1 F Pulse Rate 89 87 90 Respiratory Rate 20 Blood Pressure 150/55 H Pulse Oximetry 96 10/13/18 03:00 10/13/18 03:49 10/13/18 04:00 Temperature Pulse Rate 82 97 H 92 H Respiratory Rate 18 18 Blood Pressure 137/47 L Pulse Oximetry 96 10/13/18 05:00 10/13/18 07:00 10/13/18 07:53 Temperature 98.9 F Pulse Rate 76 81 89 Respiratory Rate 18 Blood Pressure 147/72 H Pulse Oximetry 96 10/13/18 08:00 10/13/18 08:04 10/13/18 08:09 Temperature Pulse Rate 86 92 H Respiratory Rate 20 Blood Pressure Pulse Oximetry 96 10/13/18 09:00 10/13/18 10:00 10/13/18 11:57 Temperature 99 F Pulse Rate 92 H 88 79 Respiratory Rate 18 Blood Pressure 151/71 H Pulse Oximetry 95 Intake & Output 10/12/18 10/13/18 10/13/18 18:59 06:59 18:59 Intake Total 1410 / 1410 720 / 720 Output Total 1450 / 1450 Balance -40 / -40 720 / 720 Weight 72.3 kg Intake: IV 150 / 150 Levaquin 750 mg Premix Inj 150 150 / 150 ML @ 100 mls/hr IV.SIG Q24H [facility]RE[facility] Rx#:[id number] Oral 1260 / 1260 720 / 720 Output: Urine 1450 / 1450 Other: # Voids 3 Date of Last Bowel Movement 10/12/18 10/12/18 # Bowel Movements 1 Narrative: GENERAL: Elderly female alert . NAD. HEENT: Normocephalic. Atraumatic. Pupils equal, round, reactive, conjugate. Mucous membranes are moist NECK: Trachea is midline. There is no JVD. CHEST:Bilateral wheeze with Occ Crackles at bases CARDIOVASCULAR: Normal rate, regular rhythm. ABDOMEN: Soft, nontender, nondistended. No guarding. MUSCULOSKELETAL: Pulses 1 +. No peripheral edema. NEUROLOGICAL: Awake, alert, oriented x3. Follows commands in all 4 extremities. No focal deficits. - Urinary Catheter Management Indwelling Urethral Catheter Cath placed during this visit: yes, but has since been removed by the nurse Reason for continuing: Other continuation reason Insertion date: 10/11/18 Insertion time: 23:47 Removal date: 10/12/18 Removal time: 03:05 Results - Labs CBC & Chem 7: 10/13/18 08:22 10/13/18 00:45 Laboratory Results - last 24 hr 10/12/18 10/12/18 10/12/18 13:46 16:32 19:11 WBC RBC Hgb Hct MCV MCH MCHC RDW Plt Count MPV Neut % (Auto) Lymph % (Auto) [place] % (Auto) Eos % (Auto) Baso % (Auto) Neut # (Auto) Lymph # (Auto) [place] # (Auto) Eos # (Auto) Baso # (Auto) WBC Differential Differential Comment Sodium Potassium Chloride Carbon Dioxide Anion Gap BUN Creatinine Estimated GFR POC Glucose 209 H Random Glucose Calcium Phosphorus Magnesium Total Creatine Kinase 391 H 291 H CK-MB (CK-2) 4.9 H 4.8 H CK-MB (CK-2) % 1.3 1.6 Troponin I 0.73 H* 0.72 H* 10/12/18 10/12/18 10/13/18 19:53 21:41 00:45 WBC RBC Hgb Hct MCV MCH MCHC RDW Plt Count MPV Neut % (Auto) Lymph % (Auto) [place] % (Auto) Eos % (Auto) Baso % (Auto) Neut # (Auto) Lymph # (Auto) [place] # (Auto) Eos # (Auto) Baso # (Auto) WBC Differential Differential Comment Sodium 138 Potassium 3.5 Chloride 105 Carbon Dioxide 24.6 Anion Gap 8 BUN 15 Creatinine 0.73 Estimated GFR 77 L POC Glucose 211 H 138 H Random Glucose 128 H Calcium 8.5 D Phosphorus 2.2 L Magnesium 2.1 Total Creatine Kinase 237 H CK-MB (CK-2) 3.9 H CK-MB (CK-2) % 1.6 Troponin I 10/13/18 10/13/18 10/13/18 04:17 07:56 08:22 WBC 18.1 H RBC 4.11 Hgb 13.9 Hct 40.9 MCV 99.4 MCH 33.8 MCHC 34.0 RDW 13.8 Plt Count 309 MPV 7.7 Neut % (Auto) 93.1 H Lymph % (Auto) 3.0 L [place] % (Auto) 3.6 Eos % (Auto) 0.1 Baso % (Auto) 0.2 Neut # (Auto) 16.9 H Lymph # (Auto) 0.5 L [place] # (Auto) 0.7 Eos # (Auto) 0.0 Baso # (Auto) 0.0 WBC Differential . Differential Comment Auto diff final Sodium Potassium Chloride Carbon Dioxide Anion Gap BUN Creatinine Estimated GFR POC Glucose 161 H 143 H Random Glucose Calcium Phosphorus Magnesium Total Creatine Kinase CK-MB (CK-2) CK-MB (CK-2) % Troponin I 10/13/18 10/13/18 08:22 12:00 WBC RBC Hgb Hct MCV MCH MCHC RDW Plt Count MPV Neut % (Auto) Lymph % (Auto) [place] % (Auto) Eos % (Auto) Baso % (Auto) Neut # (Auto) Lymph # (Auto) [place] # (Auto) Eos # (Auto) Baso # (Auto) WBC Differential Differential Comment Sodium Potassium Chloride Carbon Dioxide Anion Gap BUN Creatinine Estimated GFR POC Glucose 135 H Random Glucose Calcium Phosphorus Magnesium Total Creatine Kinase 190 CK-MB (CK-2) CK-MB (CK-2) % Troponin I Assessment and Plan - Assessment (1) Respiratory failure with hypoxia Code(s): J96.91 - Respiratory failure, unspecified with hypoxia Status: Acute (2) Pneumonia Code(s): J18.9 - Pneumonia, unspecified organism Status: Acute (3) Shortness of breath Code(s): R06.02 - Shortness of breath Status: Acute (4) COPD (chronic obstructive pulmonary disease) Code(s): J44.9 - Chronic obstructive pulmonary disease, unspecified Status: Acute - Plan 1. Will wean O2 to RA. 2. Nebs qid , duoneb. 3. Solumedrol 40 mg IV Q8H 4. Tarmadol 50 Mg Q6h PRN 5. CXR ,BMP in am 6. Cont Antibiotics as ordered. (4) COPD (chronic obstructive pulmonary disease) Qualifiers: COPD type: unspecified COPD Qualified Code(s): J44.9 - Chronic obstructive pulmonary disease, unspecified
[2018-10-13] MEDS: Polyethylene Glycol 3350 17 GM Packet PO SCH ×2 (14:33→21:31)
--- NOTE | 2018-10-13 17:07 | P.PNIM ---
Subjective Interval history: feels better compared to when she came in, having some tremor Physical Exam Vital signs: Last Vital Signs Temp 99.2 F 10/13/18 15:16 Pulse 103 H 10/13/18 16:28 Resp 20 10/13/18 16:28 BP 131/77 10/13/18 15:16 Pulse Ox 98 10/13/18 15:16 Intake & Output 10/11/18 10/12/18 10/13/18 10/14/18 06:59 06:59 06:59 06:59 Intake Total 120 / 120 2130 / 2130 150 / 150 Output Total 400 / 400 1450 / 1450 Balance -280 / -280 680 / 680 150 / 150 Weight 72.4 kg 72.3 kg Narrative: GENERAL: Elderly female alert . NAD. HEENT: not pale,anicteric,nasal canula insitu. NECK:no JVD. CHEST:diminished air entry,bilateral wheezes. no creps. CARDIOVASCULAR: Normal rate, regular rhythm. ABDOMEN: Soft, nontender, no organomegaly. MUSCULOSKELETAL:no pedal edema. NEUROLOGICAL: Awake, alert, oriented x4. No focal deficits. Urinary Catheter Management Indwelling Urethral Catheter: Cath placed during this visit: yes, but has since been removed by the nurse Insertion date: 10/11/18 Insertion time: 23:47 Removal date: 10/12/18 Removal time: 03:05 Results Labs CBC & Chem 7: 10/14/18 08:11 10/14/18 08:11 Assessment and Plan (1) Respiratory failure with hypoxia: Code(s): J96.91 - Respiratory failure, unspecified with hypoxia Status: Acute (2) Pneumonia: Code(s): J18.9 - Pneumonia, unspecified organism Status: Acute (3) Shortness of breath: Code(s): R06.02 - Shortness of breath Status: Acute (4) COPD (chronic obstructive pulmonary disease): Code(s): J44.9 - Chronic obstructive pulmonary disease, unspecified Status: Acute Plan 78-year-old female with Acute hypoxic and hypercapnic respiratory failure--Resolved -patient was extubated 10/11 Acute severe COPD exacerbation -some improvement, continue Solu-Medrol 40 mg every 8 hours, DuoNeb scheduled and as needed -Symbicort, Spiriva, Levaquin, -Continue aggressive pulmonary toilet -Tobacco cessation strongly advised Leukocytosis likely due to steroids. monitor closely. No clinical signs of infection at present. Elevated troponin-likelysecondary to demand ischemia in the setting of COPD exacerbation and respiratory failure. 2D echo- LVEF 50%. Anxiety-cont Lexapro DVT prophylaxis: Heparin subcut PT to treat and eval Progress Note: Quality VTE Deep Vein Thrombosis/Pulmonary Embolism Present on Admission: No _ (1) Respiratory failure with hypoxia Qualifiers: Chronicity: (2) COPD (chronic obstructive pulmonary disease) Qualifiers: COPD type: unspecified COPD Chronic bronchitis type: Emphysema type: Qualified Code(s): J44.9 - Chronic obstructive pulmonary disease, unspecified (3) Pneumonia Qualifiers: Aspiration pneumonia type: Laterality: Lung location: Pneumonia type:
[2018-10-14] MEDS: Chlorhexidine Gluconate 2% 1 Pack (2 Cloths) TOPICAL SCH (04:30)
[2018-10-14] MEDS: Insulin NovoLIN Regular Correctional Sugar Inj SQ SCH ×5 (04:33→20:08)
[2018-10-14] MEDS: MethylPREDNISolone Sod Succinate Inj 40 MG/ML Vial IV.PUSH SCH ×3 (05:49→20:09)
[2018-10-14] MEDS: Heparin - SQ 10,000 UNITS/ML Vial SQ SCH ×3 (05:49→23:35)
[2018-10-14 08:24] LABS: Baso % (Auto) 0.1 % (0.0-2.0); Hematocrit 43.7 % (35.0-46.0); Hemoglobin 14.6 gm/dL (11.6-15.3); Lymph # (Auto) 0.6 th/mm3 (1.0-4.8); Lymph % (Auto) 2.9 % (9.0-44.0); Mean Corpuscular HGB Conc 33.4 % (32.0-36.0); Mean Corpuscular Hemoglobin 34.1 pg (27.0-34.0); Mean Corpuscular Volume 102.2 fL (80.0-100.0); Mean Platelet Volume 7.4 fL (7.0-11.0); Mono % (Auto) 4.9 % (0.0-8.0); Neut # (Auto) 17.9 th/mm3 (1.8-7.7); Neut % (Auto) 92.1 % (16.0-70.0); Platelet Count 291 th/mm3 (150-450); Red Blood Count 4.28 mil/mm3 (4.00-5.30); Red Cell Distribution Width 13.7 % (11.6-17.2); White Blood Count 19.4 th/mm3 (4.0-11.0)
[2018-10-14 08:44] LABS: Calcium 8.9 mg/dL (8.5-10.1); Carbon Dioxide 26.3 meq/L (21.0-32.0); Magnesium 2.7 mg/dL (1.5-2.5); Phosphorus 3.3 mg/dL (2.5-4.9); Potassium 3.8 meq/L (3.5-5.1)
[2018-10-14] MEDS: Polyethylene Glycol 3350 17 GM Packet PO SCH ×2 (09:36→20:09)
[2018-10-14] MEDS: Budesonide-Formoterol 160/4.5 MCG 6 GM Inhaler INH SCH ×2 (09:37→20:12)
[2018-10-14] MEDS: Escitalopram 10 MG Tablet PO SCH (09:37)
[2018-10-14] MEDS: Sodium Chloride 0.9% 2 ML Flush BID IV.FLUSH SCH ×2 (09:38→20:12)
[2018-10-14] MEDS: Famotidine 20 MG Tablet PO SCH ×2 (09:38→20:11)
[2018-10-14] MEDS: Tiotropium Bromide 18 MCG/ACT Inhaler INH SCH (09:39)
--- NOTE | 2018-10-14 11:57 | P.PNIM ---
Subjective Interval history: c/o bilateral rib pain when coughing or breathing. shortness of breath improving some, but still feels SOB on exertion. Physical Exam Vital signs: Last Vital Signs Temp 98.2 F 10/14/18 04:00 Pulse 87 10/14/18 07:49 Resp 16 10/14/18 07:49 BP 142/81 H 10/14/18 05:00 Pulse Ox 98 10/14/18 07:49 Intake & Output 10/12/18 10/13/18 10/14/18 10/15/18 06:59 06:59 06:59 06:59 Intake Total 120 / 120 2130 / 2130 1830 / 1830 Output Total 400 / 400 1450 / 1450 800 / 800 Balance -280 / -280 680 / 680 1030 / 1030 Weight 72.4 kg 72.3 kg 71.441 kg Narrative: GENERAL: Elderly female alert . NAD. HEENT: not pale,anicteric,nasal canula insitu. NECK:no JVD. CHEST:clear to auscultation, no wheezes. no creps. CARDIOVASCULAR: Normal rate, regular rhythm. ABDOMEN: Soft, nontender, no organomegaly. MUSCULOSKELETAL:no pedal edema. NEUROLOGICAL: Awake, alert, oriented x4. No focal deficits. Urinary Catheter Management Indwelling Urethral Catheter: Cath placed during this visit: yes, but has since been removed by the nurse Insertion date: 10/11/18 Insertion time: 23:47 Removal date: 10/12/18 Removal time: 03:05 Results Labs CBC & Chem 7: 10/15/18 05:28 10/15/18 05:28 Assessment and Plan (1) Respiratory failure with hypoxia: Code(s): J96.91 - Respiratory failure, unspecified with hypoxia Status: Acute (2) Pneumonia: Code(s): J18.9 - Pneumonia, unspecified organism Status: Acute (3) Shortness of breath: Code(s): R06.02 - Shortness of breath Status: Acute (4) COPD (chronic obstructive pulmonary disease): Code(s): J44.9 - Chronic obstructive pulmonary disease, unspecified Status: Acute Plan 78-year-old female with Acute hypoxic and hypercapnic respiratory failure--Resolved -patient was extubated 10/11 Acute severe COPD exacerbation -some improvement, continue Solu-Medrol 40 mg every 8 hours, DuoNeb scheduled and as needed -Symbicort, Spiriva, Levaquin, -Continue aggressive pulmonary toilet -Tobacco cessation strongly advised Leukocytosis likely due to steroids. monitor closely. No clinical signs of infection at present. Rib pain-patient had CPR prior to admission, on Tramadol which is not helping. Add lidocaine patch. Elevated troponin-likely secondary to demand ischemia in the setting of COPD exacerbation and respiratory failure. 2D echo- LVEF 50%. Anxiety-cont Lexapro DVT prophylaxis: Heparin subcut PT to treat and eval Progress Note: Quality VTE Deep Vein Thrombosis/Pulmonary Embolism Present on Admission: No _ (1) Respiratory failure with hypoxia Qualifiers: Chronicity: (2) COPD (chronic obstructive pulmonary disease) Qualifiers: COPD type: unspecified COPD Chronic bronchitis type: Emphysema type: Qualified Code(s): J44.9 - Chronic obstructive pulmonary disease, unspecified (3) Pneumonia Qualifiers: Aspiration pneumonia type: Laterality: Lung location: Pneumonia type:
[2018-10-14] MEDS ORDERED: Lidocaine 5% Patch T-DERMAL SCH ×2 (12:00)
[2018-10-14] MEDS: Lidocaine 5% Patch T-DERMAL SCH ×2 (12:44→12:45)
--- NOTE | 2018-10-14 15:35 | P.PN ---
Subjective Interval history: She is making progress. On o2 3 L. C/O pains in chest from CPR. No wheezing. Physical Exam Vital signs: Vital Signs 10/13/18 16:00 10/13/18 16:28 10/13/18 17:00 Temperature Pulse Rate 96 H 103 H 100 H Respiratory Rate 20 Blood Pressure Pulse Oximetry 10/13/18 18:00 10/13/18 19:00 10/13/18 19:25 Temperature Pulse Rate 102 H 93 H 87 Respiratory Rate 18 Blood Pressure Pulse Oximetry 95 10/13/18 20:00 10/13/18 21:00 10/13/18 22:00 Temperature 99.2 F Pulse Rate 96 H 98 H 90 Respiratory Rate 18 Blood Pressure 148/87 H Pulse Oximetry 96 10/13/18 23:00 10/13/18 23:23 10/14/18 00:00 Temperature 99.3 F Pulse Rate 88 98 H 98 H Respiratory Rate 18 18 Blood Pressure 134/74 Pulse Oximetry 97 10/14/18 01:00 10/14/18 02:00 10/14/18 03:00 Temperature Pulse Rate 88 82 74 Respiratory Rate Blood Pressure Pulse Oximetry 10/14/18 03:20 10/14/18 04:00 10/14/18 05:00 Temperature 98.2 F Pulse Rate 74 74 76 Respiratory Rate 18 24 Blood Pressure 190/95 H 142/81 H Pulse Oximetry 95 10/14/18 06:00 10/14/18 07:49 10/14/18 08:00 Temperature 97.9 F Pulse Rate 74 87 72 Respiratory Rate 16 18 Blood Pressure 139/74 Pulse Oximetry 98 97 10/14/18 11:58 10/14/18 12:00 10/14/18 14:00 Temperature 98.6 F Pulse Rate 86 72 Respiratory Rate 16 18 18 Blood Pressure 125/71 Pulse Oximetry 94 L Intake & Output 10/13/18 10/14/18 10/14/18 18:59 06:59 18:59 Intake Total 1350 / 1350 480 / 480 Output Total 800 / 800 Balance 550 / 550 480 / 480 Weight 71.441 kg Intake: IV 150 / 150 Levaquin 750 mg Premix Inj 150 150 / 150 ML @ 100 mls/hr IV.SIG Q24H [facility] Rx#:[id number] Oral 1200 / 1200 480 / 480 Output: Urine 800 / 800 Other: # Voids 3 Date of Last Bowel Movement 10/12/18 10/13/18 10/13/18 Narrative: GENERAL: Elderly female alert . NAD. HEENT: not pale,anicteric,clear throat. NECK:no JVD. CHEST:Distant breath sounds. no wheezes.Tender chest wall. CARDIOVASCULAR: Normal rate, regular rhythm. ABDOMEN: Soft, nontender, no organomegaly. MUSCULOSKELETAL:no pedal edema. NEUROLOGICAL: Awake, alert, oriented x4. No focal deficits. - Urinary Catheter Management Indwelling Urethral Catheter Cath placed during this visit: yes, but has since been removed by the nurse Reason for continuing: Other continuation reason Insertion date: 10/11/18 Insertion time: 23:47 Removal date: 10/12/18 Removal time: 03:05 Results - Labs CBC & Chem 7: 10/14/18 08:11 10/14/18 08:11 Laboratory Results - last 24 hr 10/13/18 10/13/18 10/13/18 16:48 19:37 21:30 WBC RBC Hgb Hct MCV MCH MCHC RDW Plt Count MPV Neut % (Auto) Lymph % (Auto) [place] % (Auto) Eos % (Auto) Baso % (Auto) Neut # (Auto) Lymph # (Auto) [place] # (Auto) Eos # (Auto) Baso # (Auto) WBC Differential Differential Comment Sodium Potassium Chloride Carbon Dioxide Anion Gap BUN Creatinine Estimated GFR POC Glucose 135 H 147 H Random Glucose Calcium Phosphorus Magnesium Total Creatine Kinase 123 10/14/18 10/14/18 10/14/18 04:26 07:31 08:11 WBC 19.4 H RBC 4.28 Hgb 14.6 Hct 43.7 MCV 102.2 H MCH 34.1 H MCHC 33.4 RDW 13.7 Plt Count 291 MPV 7.4 Neut % (Auto) 92.1 H Lymph % (Auto) 2.9 L [place] % (Auto) 4.9 Eos % (Auto) 0.0 Baso % (Auto) 0.1 Neut # (Auto) 17.9 H Lymph # (Auto) 0.6 L [place] # (Auto) 1.0 H Eos # (Auto) 0.0 Baso # (Auto) 0.0 WBC Differential . Differential Comment Auto diff final Sodium Potassium Chloride Carbon Dioxide Anion Gap BUN Creatinine Estimated GFR POC Glucose 157 H 136 H Random Glucose Calcium Phosphorus Magnesium Total Creatine Kinase 10/14/18 10/14/18 08:11 11:52 WBC RBC Hgb Hct MCV MCH MCHC RDW Plt Count MPV Neut % (Auto) Lymph % (Auto) [place] % (Auto) Eos % (Auto) Baso % (Auto) Neut # (Auto) Lymph # (Auto) [place] # (Auto) Eos # (Auto) Baso # (Auto) WBC Differential Differential Comment Sodium 139 Potassium 3.8 Chloride 105 Carbon Dioxide 26.3 Anion Gap 8 BUN 16 Creatinine 0.77 Estimated GFR 73 L POC Glucose 135 H Random Glucose 126 H Calcium 8.9 Phosphorus 3.3 D Magnesium 2.7 H D Total Creatine Kinase Assessment and Plan - Assessment (1) Respiratory failure with hypoxia Code(s): J96.91 - Respiratory failure, unspecified with hypoxia Status: Acute (2) Pneumonia Code(s): J18.9 - Pneumonia, unspecified organism Status: Acute (3) Shortness of breath Code(s): R06.02 - Shortness of breath Status: Acute (4) COPD (chronic obstructive pulmonary disease) Code(s): J44.9 - Chronic obstructive pulmonary disease, unspecified Status: Acute - Plan 1. O2 2 L N/C 2. Nebs qid , duoneb. 3. Taper Solumedrol 40 mg IV Q12H 4. Tarmadol 50 Mg Q6h PRN 5. CBC ,BMP in am 6. Cont Antibiotics as ordered. 7. Up in room as tolerated. (4) COPD (chronic obstructive pulmonary disease) Qualifiers: COPD type: unspecified COPD Qualified Code(s): J44.9 - Chronic obstructive pulmonary disease, unspecified
[2018-10-14] MEDS: Acetaminophen 325 MG Tablet PO PRN (20:16)
[2018-10-15] MEDS: Insulin NovoLIN Regular Correctional Sugar Inj SQ SCH ×5 (04:09→21:57)
[2018-10-15] MEDS: Chlorhexidine Gluconate 2% 1 Pack (2 Cloths) TOPICAL SCH (05:30)
[2018-10-15] MEDS: Heparin - SQ 10,000 UNITS/ML Vial SQ SCH ×3 (05:31→22:00)
[2018-10-15 05:46] LABS: Baso % (Auto) 0.1 % (0.0-2.0); Hematocrit 38.1 % (35.0-46.0); Hemoglobin 12.9 gm/dL (11.6-15.3); Lymph # (Auto) 0.6 th/mm3 (1.0-4.8); Lymph % (Auto) 4.2 % (9.0-44.0); Mean Corpuscular HGB Conc 33.9 % (32.0-36.0); Mean Corpuscular Hemoglobin 33.8 pg (27.0-34.0); Mean Corpuscular Volume 99.8 fL (80.0-100.0); Mean Platelet Volume 7.9 fL (7.0-11.0); Mono # (Auto) 0.9 th/mm3 (0.0-0.9); Mono % (Auto) 6.4 % (0.0-8.0); Neut % (Auto) 89.3 % (16.0-70.0); Platelet Count 284 th/mm3 (150-450); Red Blood Count 3.82 mil/mm3 (4.00-5.30); Red Cell Distribution Width 13.4 % (11.6-17.2); White Blood Count 13.4 th/mm3 (4.0-11.0)
[2018-10-15 06:14] LABS: Calcium 8.3 mg/dL (8.5-10.1); Magnesium 2.5 mg/dL (1.5-2.5); Phosphorus 3.6 mg/dL (2.5-4.9); Potassium 3.9 meq/L (3.5-5.1)
[2018-10-15] MEDS: Budesonide-Formoterol 160/4.5 MCG 6 GM Inhaler INH SCH ×2 (09:00→21:59)
[2018-10-15] MEDS: Tiotropium Bromide 18 MCG/ACT Inhaler INH SCH (09:00)
[2018-10-15] MEDS: Sodium Chloride 0.9% 2 ML Flush BID IV.FLUSH SCH ×2 (09:00→21:57)
[2018-10-15] MEDS: Polyethylene Glycol 3350 17 GM Packet PO SCH ×2 (09:53→21:56)
[2018-10-15] MEDS: Escitalopram 10 MG Tablet PO SCH (09:53)
[2018-10-15] MEDS: Famotidine 20 MG Tablet PO SCH ×2 (09:54→21:57)
[2018-10-15] MEDS: MethylPREDNISolone Sod Succinate Inj 40 MG/ML Vial IV.PUSH SCH (09:55)
[2018-10-15] MEDS: Lidocaine 5% Patch T-DERMAL SCH ×2 (09:56→12:57)
[2018-10-15] MEDS: Acetaminophen 325 MG Tablet PO PRN (10:02)
--- NOTE | 2018-10-15 10:57 | P.PNIM ---
Subjective Interval history: patient reports improvement in her breathing. still having rib pains. Physical Exam Vital signs: Last Vital Signs Temp 98.0 F 10/15/18 04:00 Pulse 63 10/15/18 07:34 Resp 18 10/15/18 07:34 BP 141/77 H 10/15/18 04:00 Pulse Ox 95 10/15/18 07:34 Intake & Output 10/13/18 10/14/18 10/15/18 10/16/18 06:59 06:59 06:59 06:59 Intake Total 2130 / 2130 1830 / 1830 1470 / 1470 Output Total 1450 / 1450 800 / 800 800 / 800 Balance 680 / 680 1030 / 1030 670 / 670 Weight 72.3 kg 71.3 kg Narrative: GENERAL: Elderly female alert . NAD. HEENT: not pale,anicteric,nasal canula insitu. NECK:no JVD. CHEST:clear to auscultation, no wheezes. no creps. CARDIOVASCULAR: Normal rate, regular rhythm. ABDOMEN: Soft, nontender, no organomegaly. MUSCULOSKELETAL:no pedal edema. NEUROLOGICAL: Awake, alert, oriented x4. No focal deficits. Urinary Catheter Management Indwelling Urethral Catheter: Cath placed during this visit: yes, but has since been removed by the nurse Insertion date: 10/11/18 Insertion time: 23:47 Removal date: 10/12/18 Removal time: 03:05 Results Labs CBC & Chem 7: 10/15/18 05:28 10/15/18 05:28 Assessment and Plan (1) Respiratory failure with hypoxia: Code(s): J96.91 - Respiratory failure, unspecified with hypoxia Status: Acute (2) Pneumonia: Code(s): J18.9 - Pneumonia, unspecified organism Status: Acute (3) Shortness of breath: Code(s): R06.02 - Shortness of breath Status: Acute (4) COPD (chronic obstructive pulmonary disease): Code(s): J44.9 - Chronic obstructive pulmonary disease, unspecified Status: Acute Plan 78-year-old female with Acute hypoxic and hypercapnic respiratory failure--Resolved -patient was extubated 10/11 Acute severe COPD exacerbation -clinically improving. Leucocytosis trending down. -Solu-Medrol tapered to 40 mg every 12 hours on 10/14, continue DuoNeb scheduled and as needed. -Symbicort, Spiriva, Levaquin, -Continue aggressive pulmonary toilet -Tobacco cessation strongly advised Leukocytosis likely due to steroids, trending down. monitor closely. No clinical signs of infection at present. Rib pain-patient had CPR prior to admission, on Tramadol which is not helping, added Lidocaine patch on 10/14, and Tylenol 1gm q8h on 10/15, monitor. Elevated troponin-likely secondary to demand ischemia in the setting of COPD exacerbation and respiratory failure. 2D echo- LVEF 50%. Anxiety-cont Lexapro DVT prophylaxis: Heparin subcut PT to treat and eval DISPO--stable for transfer to med surg floor later today. Progress Note: Quality VTE Deep Vein Thrombosis/Pulmonary Embolism Present on Admission: No _ (1) Respiratory failure with hypoxia Qualifiers: Chronicity: (2) Pneumonia Qualifiers: Pneumonia type: Aspiration pneumonia type: Laterality: Lung location: (3) COPD (chronic obstructive pulmonary disease) Qualifiers: COPD type: unspecified COPD Chronic bronchitis type: Emphysema type: Qualified Code(s): J44.9 - Chronic obstructive pulmonary disease, unspecified
[2018-10-15] MEDS: Acetaminophen 500 MG Tablet PO SCH ×2 (13:00→18:10)
--- NOTE | 2018-10-15 18:29 | P.PN ---
Subjective Interval history: she is progressing well. C/O pains in chest as before. Needs pain meds. On o2 2 l Physical Exam Vital signs: Vital Signs 10/14/18 20:00 10/14/18 20:07 10/14/18 20:19 Temperature 98.2 F Pulse Rate 84 82 85 Respiratory Rate 18 18 Blood Pressure 112/80 Pulse Oximetry 96 96 10/14/18 23:00 10/14/18 23:33 10/15/18 00:25 Temperature 98.2 F Pulse Rate 75 83 77 Respiratory Rate 18 Blood Pressure 159/70 H Pulse Oximetry 94 L 10/15/18 01:00 10/15/18 02:00 10/15/18 03:00 Temperature Pulse Rate 77 70 75 Respiratory Rate Blood Pressure Pulse Oximetry 10/15/18 03:30 10/15/18 04:00 10/15/18 04:38 Temperature 98.0 F Pulse Rate 82 77 75 Respiratory Rate 16 18 Blood Pressure 141/77 H Pulse Oximetry 96 10/15/18 05:00 10/15/18 06:00 10/15/18 07:00 Temperature Pulse Rate 81 78 72 Respiratory Rate Blood Pressure Pulse Oximetry 10/15/18 07:34 10/15/18 08:00 10/15/18 09:00 Temperature Pulse Rate 63 72 72 Respiratory Rate 18 18 Blood Pressure 156/87 H Pulse Oximetry 95 97 10/15/18 10:00 10/15/18 11:00 10/15/18 11:24 Temperature Pulse Rate 72 72 75 Respiratory Rate 18 Blood Pressure Pulse Oximetry 10/15/18 12:00 10/15/18 15:30 10/15/18 16:00 Temperature 97.7 F 98.7 F Pulse Rate 94 H 74 91 H Respiratory Rate 18 16 18 Blood Pressure 149/76 H 140/69 Pulse Oximetry 98 98 Intake & Output 10/14/18 10/15/18 10/15/18 18:59 06:59 18:59 Intake Total 1230 / 1230 240 / 240 1000 / 1000 Output Total 500 / 500 300 / 300 Balance 730 / 730 -60 / -60 1000 / 1000 Weight 71.441 kg 71.3 kg Intake: IV 150 / 150 Levaquin 750 mg Premix Inj 150 150 / 150 ML @ 100 mls/hr IV.SIG Q24H COUNT INCLUDES THE [facility] Rx#:[id number] Oral 1080 / 1080 240 / 240 1000 / 1000 Output: Urine 500 / 500 300 / 300 Other: # Voids 1 1 3 Date of Last Bowel Movement 10/13/18 10/13/18 10/13/18 Narrative: GENERAL: Elderly female alert . NAD. HEENT: not pale,anicteric. NECK:no JVD. CHEST:Distant breath sounds and ,Occ Expiratory wheezes. CARDIOVASCULAR: Normal rate, regular rhythm. ABDOMEN: Soft, nontender, no organomegaly. MUSCULOSKELETAL:no pedal edema. NEUROLOGICAL: Awake, alert, oriented x4. No focal deficits. - Urinary Catheter Management Indwelling Urethral Catheter Cath placed during this visit: yes, but has since been removed by the nurse Reason for continuing: Other continuation reason Insertion date: 10/11/18 Insertion time: 23:47 Removal date: 10/12/18 Removal time: 03:05 Results - Labs CBC & Chem 7: 10/15/18 05:28 10/15/18 05:28 Laboratory Results - last 24 hr 10/14/18 10/15/18 10/15/18 20:08 04:08 05:28 WBC 13.4 H RBC 3.82 L Hgb 12.9 Hct 38.1 MCV 99.8 MCH 33.8 MCHC 33.9 RDW 13.4 Plt Count 284 MPV 7.9 Prelim Diff (Auto) Slide review pending Neut % (Auto) 89.3 H Lymph % (Auto) 4.2 L [place] % (Auto) 6.4 Eos % (Auto) 0.0 Baso % (Auto) 0.1 Neut # (Auto) 12.0 H Lymph # (Auto) 0.6 L [place] # (Auto) 0.9 Eos # (Auto) 0.0 Baso # (Auto) 0.0 WBC Differential . Diff Scan Auto diff confirmed Differential Comment . Sodium Potassium Chloride Carbon Dioxide Anion Gap BUN Creatinine Estimated GFR POC Glucose 137 H 145 H Random Glucose Calcium Phosphorus Magnesium 10/15/18 10/15/18 10/15/18 05:28 07:51 12:09 WBC RBC Hgb Hct MCV MCH MCHC RDW Plt Count MPV Prelim Diff (Auto) Neut % (Auto) Lymph % (Auto) [place] % (Auto) Eos % (Auto) Baso % (Auto) Neut # (Auto) Lymph # (Auto) [place] # (Auto) Eos # (Auto) Baso # (Auto) WBC Differential Diff Scan Differential Comment Sodium 141 Potassium 3.9 Chloride 107 Carbon Dioxide 26.0 Anion Gap 8 BUN 18 Creatinine 0.69 Estimated GFR 82 L POC Glucose 105 106 Random Glucose 136 H Calcium 8.3 L Phosphorus 3.6 Magnesium 2.5 10/15/18 16:21 WBC RBC Hgb Hct MCV MCH MCHC RDW Plt Count MPV Prelim Diff (Auto) Neut % (Auto) Lymph % (Auto) [place] % (Auto) Eos % (Auto) Baso % (Auto) Neut # (Auto) Lymph # (Auto) [place] # (Auto) Eos # (Auto) Baso # (Auto) WBC Differential Diff Scan Differential Comment Sodium Potassium Chloride Carbon Dioxide Anion Gap BUN Creatinine Estimated GFR POC Glucose 120 H Random Glucose Calcium Phosphorus Magnesium Assessment and Plan - Assessment (1) Respiratory failure with hypoxia Code(s): J96.91 - Respiratory failure, unspecified with hypoxia Status: Acute (2) Pneumonia Code(s): J18.9 - Pneumonia, unspecified organism Status: Acute (3) Shortness of breath Code(s): R06.02 - Shortness of breath Status: Acute (4) COPD (chronic obstructive pulmonary disease) Code(s): J44.9 - Chronic obstructive pulmonary disease, unspecified Status: Acute - Plan 1. O2 2 L N/C and home O2 2 L 2. Nebs qid , duoneb. 3. D/C Solumedrol 4. Tarmadol 50 Mg Q6h PRN 5. Add Prednisone 30 mg daily and taper over 3 weeks 6. Cont Antibiotics as ordered. 7. Up as tolerated.PT and OT (4) COPD (chronic obstructive pulmonary disease) Qualifiers: COPD type: unspecified COPD Qualified Code(s): J44.9 - Chronic obstructive pulmonary disease, unspecified
[2018-10-16] MEDS: Acetaminophen 500 MG Tablet PO SCH ×3 (02:45→18:00)
[2018-10-16] MEDS: Insulin NovoLIN Regular Correctional Sugar Inj SQ SCH ×3 (02:56→10:59)
[2018-10-16] MEDS: Chlorhexidine Gluconate 2% 1 Pack (2 Cloths) TOPICAL SCH (03:27)
[2018-10-16] MEDS: Heparin - SQ 10,000 UNITS/ML Vial SQ SCH ×3 (05:25→21:00)
[2018-10-16 06:52] LABS: Baso # (Auto) 0.1 th/mm3 (0.0-0.2); Baso % (Auto) 0.4 % (0.0-2.0); Eos % (Auto) 0.1 % (0.0-4.0); Hematocrit 42.3 % (35.0-46.0); Hemoglobin 14.2 gm/dL (11.6-15.3); Lymph # (Auto) 1.4 th/mm3 (1.0-4.8); Mean Corpuscular HGB Conc 33.7 % (32.0-36.0); Mean Corpuscular Volume 100.9 fL (80.0-100.0); Mean Platelet Volume 8.4 fL (7.0-11.0); Mono # (Auto) 1.3 th/mm3 (0.0-0.9); Mono % (Auto) 9.6 % (0.0-8.0); Neut # (Auto) 11.2 th/mm3 (1.8-7.7); Neut % (Auto) 79.9 % (16.0-70.0); Platelet Count 294 th/mm3 (150-450); Red Blood Count 4.19 mil/mm3 (4.00-5.30); Red Cell Distribution Width 13.5 % (11.6-17.2); White Blood Count 14.1 th/mm3 (4.0-11.0)
[2018-10-16 07:07] LABS: Calcium 8.3 mg/dL (8.5-10.1); Carbon Dioxide 24.6 meq/L (21.0-32.0); Magnesium 2.3 mg/dL (1.5-2.5)
[2018-10-16 07:17] LABS: Potassium 3.6 meq/L (3.5-5.1)
[2018-10-16 08:31] LABS: Lymphocytes 9 % (9-44); Monocytes 11 % (0-8); Myelocytes 1 % (0-0); Platelet Estimate Normal (Normal); Platelet Morphology Normal (Normal)
[2018-10-16] MEDS ORDERED: predniSONE 10 MG Tablet PO SCH (09:00)
[2018-10-16] MEDS: Escitalopram 10 MG Tablet PO SCH (09:59)
[2018-10-16] MEDS: Sodium Chloride 0.9% 2 ML Flush BID IV.FLUSH SCH ×2 (10:00→21:06)
[2018-10-16] MEDS: Polyethylene Glycol 3350 17 GM Packet PO SCH ×2 (10:00→20:58)
[2018-10-16] MEDS: Budesonide-Formoterol 160/4.5 MCG 6 GM Inhaler INH SCH ×2 (10:00→21:01)
[2018-10-16] MEDS: Famotidine 20 MG Tablet PO SCH ×2 (10:00→20:59)
[2018-10-16] MEDS: Lidocaine 5% Patch T-DERMAL SCH ×2 (10:00)
[2018-10-16] MEDS: Tiotropium Bromide 18 MCG/ACT Inhaler INH SCH (10:00)
--- NOTE | 2018-10-16 13:12 | P.PN ---
Subjective Interval history: Had a Bad night. Was having pains in chest. No fever. Steroids make her shaky Physical Exam Vital signs: Vital Signs 10/15/18 15:30 10/15/18 16:00 10/15/18 19:00 Temperature 98.7 F Pulse Rate 74 91 H 78 Respiratory Rate 16 18 18 Blood Pressure 140/69 Pulse Oximetry 98 10/15/18 20:00 10/16/18 00:00 10/16/18 02:19 Temperature 98.1 F 98.3 F Pulse Rate 78 69 76 Respiratory Rate 20 20 15 Blood Pressure 128/80 152/77 H Pulse Oximetry 97 96 10/16/18 02:20 10/16/18 04:00 10/16/18 08:00 Temperature 97.9 F 98 F Pulse Rate 75 70 Respiratory Rate 20 22 Blood Pressure 174/69 H 150/76 H Pulse Oximetry 96 96 96 10/16/18 09:27 10/16/18 10:40 Temperature Pulse Rate 58 L Respiratory Rate 16 20 Blood Pressure Pulse Oximetry 98 Intake & Output 10/15/18 10/16/18 10/16/18 18:59 06:59 18:59 Intake Total 1000 / 1000 630 / 630 Balance 1000 / 1000 630 / 630 Weight 73.5 kg Intake: IV 150 / 150 Levaquin 750 mg Premix Inj 150 150 / 150 ML @ 100 mls/hr IV.SIG Q24H [facility] Rx#:[id number] Oral 1000 / 1000 480 / 480 Other: # Voids 3 1 Date of Last Bowel Movement 10/13/18 10/13/18 Narrative: GENERAL: Elderly female alert . NAD. HEENT: not pale,anicteric. NECK:no JVD. CHEST:Distant breath sounds and ,Occ Expiratory wheezes.Few basal crackles. CARDIOVASCULAR: Normal rate, regular rhythm. ABDOMEN: Soft, nontender, no organomegaly. MUSCULOSKELETAL:no pedal edema. NEUROLOGICAL: Awake, alert, oriented x4. No focal deficits. - Urinary Catheter Management Indwelling Urethral Catheter Cath placed during this visit: yes, but has since been removed by the nurse Reason for continuing: Other continuation reason Insertion date: 10/11/18 Insertion time: 23:47 Removal date: 10/12/18 Removal time: 03:05 Results - Labs CBC & Chem 7: 10/16/18 04:51 10/16/18 04:51 Laboratory Results - last 24 hr 10/15/18 10/15/18 10/16/18 16:21 22:02 02:43 WBC RBC Hgb Hct MCV MCH MCHC RDW Plt Count MPV Prelim Diff (Auto) Neut % (Auto) Lymph % (Auto) [place] % (Auto) Eos % (Auto) Baso % (Auto) Neut # (Auto) Lymph # (Auto) [place] # (Auto) Eos # (Auto) Baso # (Auto) WBC Differential Seg Neuts % (Manual) Lymphocytes % (Manual) Monocytes % (Manual) Myelocytes % (Man) Abs Neuts (Manual) Differential Comment Platelet Estimate Platelet Morphology Sodium Potassium Chloride Carbon Dioxide Anion Gap BUN Creatinine Estimated GFR POC Glucose 120 H 107 88 Random Glucose Calcium Phosphorus Magnesium 10/16/18 10/16/18 10/16/18 04:51 04:51 08:11 WBC 14.1 H RBC 4.19 Hgb 14.2 Hct 42.3 MCV 100.9 H MCH 34.0 MCHC 33.7 RDW 13.5 Plt Count 294 MPV 8.4 Prelim Diff (Auto) Slide review pending Neut % (Auto) 79.9 H Lymph % (Auto) 10.0 [place] % (Auto) 9.6 H Eos % (Auto) 0.1 Baso % (Auto) 0.4 Neut # (Auto) 11.2 H Lymph # (Auto) 1.4 [place] # (Auto) 1.3 H Eos # (Auto) 0.0 Baso # (Auto) 0.1 WBC Differential Manual diff final Seg Neuts % (Manual) 79 H Lymphocytes % (Manual) 9 Monocytes % (Manual) 11 H Myelocytes % (Man) 1 H Abs Neuts (Manual) 11.3 H Differential Comment . Platelet Estimate Normal Platelet Morphology Normal Sodium 137 Potassium 3.6 Chloride 103 Carbon Dioxide 24.6 Anion Gap 9 BUN 16 Creatinine 0.84 Estimated GFR 66 L POC Glucose 82 Random Glucose 72 L Calcium 8.3 L Phosphorus 3.0 Magnesium 2.3 Assessment and Plan - Assessment (1) Respiratory failure with hypoxia Code(s): J96.91 - Respiratory failure, unspecified with hypoxia Status: Acute (2) Pneumonia Code(s): J18.9 - Pneumonia, unspecified organism Status: Acute (3) Shortness of breath Code(s): R06.02 - Shortness of breath Status: Acute (4) COPD (chronic obstructive pulmonary disease) Code(s): J44.9 - Chronic obstructive pulmonary disease, unspecified Status: Acute - Plan 1. Cont O2 2 L N/C and home O2 2 L 2. Nebs qid , duoneb. 3. CXR ,BMP in am. 4. Tarmadol 50 Mg Q6h PRN 5. Prednisone 20 mg daily and taper over 3 weeks 6. Cont Antibiotics as ordered. 7. Up as tolerated.PT and OT 8. Rehab placement (4) COPD (chronic obstructive pulmonary disease) Qualifiers: COPD type: unspecified COPD Qualified Code(s): J44.9 - Chronic obstructive pulmonary disease, unspecified
--- NOTE | 2018-10-16 16:54 | P.PNIM ---
Subjective Interval history: still having rib pain but with some improvement. breathing is better. she did not sleep well last night due to pain in her ribs. Physical Exam Vital signs: Last Vital Signs Temp 98 F 10/16/18 08:00 Pulse 58 L 10/16/18 09:27 Resp 20 10/16/18 10:40 BP 150/76 H 10/16/18 08:00 Pulse Ox 98 10/16/18 09:27 Intake & Output 10/14/18 10/15/18 10/16/18 10/17/18 06:59 06:59 06:59 06:59 Intake Total 1830 / 1830 1470 / 1470 1630 / 1630 Output Total 800 / 800 800 / 800 Balance 1030 / 1030 670 / 670 1630 / 1630 Weight 71.3 kg 73.5 kg Narrative: GENERAL: Elderly female alert . NAD. HEENT: not pale,anicteric,nasal canula insitu. NECK:no JVD. CHEST:clear to auscultation, no wheezes. no creps. CARDIOVASCULAR: Normal rate, regular rhythm. ABDOMEN: Soft, nontender, no organomegaly. MUSCULOSKELETAL:no pedal edema. NEUROLOGICAL: Awake, alert, oriented x4. No focal deficits. Urinary Catheter Management Indwelling Urethral Catheter: Cath placed during this visit: yes, but has since been removed by the nurse Insertion date: 10/11/18 Insertion time: 23:47 Removal date: 10/12/18 Removal time: 03:05 Results Labs CBC & Chem 7: 10/17/18 04:42 10/17/18 04:42 Assessment and Plan (1) Respiratory failure with hypoxia: Code(s): J96.91 - Respiratory failure, unspecified with hypoxia Status: Acute (2) Pneumonia: Code(s): J18.9 - Pneumonia, unspecified organism Status: Acute (3) Shortness of breath: Code(s): R06.02 - Shortness of breath Status: Acute (4) COPD (chronic obstructive pulmonary disease): Code(s): J44.9 - Chronic obstructive pulmonary disease, unspecified Status: Acute Plan 78-year-old female with Acute hypoxic and hypercapnic respiratory failure--Resolved -patient was extubated 10/11 Acute severe COPD exacerbation -clinically improving. Leucocytosis trending down. -switched to oral prednisone taper. continue DuoNeb scheduled and as needed. -Symbicort, Spiriva, Levaquin, -Continue aggressive pulmonary toilet -Tobacco cessation strongly advised Leukocytosis likely due to steroids, trending down. monitor closely. No clinical signs of infection at present. Rib pain-patient had CPR prior to admission, on Tramadol which is not helping, added Lidocaine patch on 10/14, and Tylenol 1gm q8h on 10/15, monitor. Elevated troponin-likely secondary to demand ischemia in the setting of COPD exacerbation and respiratory failure. 2D echo- LVEF 50%. Anxiety-cont Lexapro DVT prophylaxis: Heparin subcut PT/OT recommend rehab Progress Note: Quality VTE Deep Vein Thrombosis/Pulmonary Embolism Present on Admission: No _ (1) Respiratory failure with hypoxia Qualifiers: Chronicity: (2) COPD (chronic obstructive pulmonary disease) Qualifiers: COPD type: unspecified COPD Chronic bronchitis type: Emphysema type: Qualified Code(s): J44.9 - Chronic obstructive pulmonary disease, unspecified (3) Pneumonia Qualifiers: Aspiration pneumonia type: Laterality: Lung location: Pneumonia type:
[2018-10-16] MEDS: predniSONE 10 MG Tablet PO SCH (20:59)
[2018-10-17] MEDS: Acetaminophen 500 MG Tablet PO SCH ×3 (04:48→18:21)
[2018-10-17] MEDS: Heparin - SQ 10,000 UNITS/ML Vial SQ SCH ×3 (05:00→22:01)
[2018-10-17 06:24] LABS: Baso % (Auto) 0.2 % (0.0-2.0); Eos % (Auto) 0.1 % (0.0-4.0); Hematocrit 37.9 % (35.0-46.0); Lymph % (Auto) 9.9 % (9.0-44.0); Mean Corpuscular HGB Conc 34.3 % (32.0-36.0); Mean Corpuscular Hemoglobin 34.1 pg (27.0-34.0); Mean Corpuscular Volume 99.4 fL (80.0-100.0); Mean Platelet Volume 8.4 fL (7.0-11.0); Mono # (Auto) 1.2 th/mm3 (0.0-0.9); Mono % (Auto) 11.3 % (0.0-8.0); Neut # (Auto) 8.2 th/mm3 (1.8-7.7); Neut % (Auto) 78.5 % (16.0-70.0); Platelet Count 300 th/mm3 (150-450); Red Blood Count 3.82 mil/mm3 (4.00-5.30); Red Cell Distribution Width 13.6 % (11.6-17.2); White Blood Count 10.4 th/mm3 (4.0-11.0)
[2018-10-17 06:59] LABS: Anion Gap 6 meq/L (5-15); Blood Urea Nitrogen 14 mg/dL (7-18); Calcium 8.6 mg/dL (8.5-10.1); Carbon Dioxide 27.7 meq/L (21.0-32.0); Chloride 103 meq/L (98-107); Glomerular Filtration Rate Greater Than 89 mL/min (>89); Glucose,Random 95 mg/dL (74-106); Magnesium 2.6 mg/dL (1.5-2.5); Phosphorus 4.1 mg/dL (2.5-4.9); Potassium 4.2 meq/L (3.5-5.1); Sodium 137 meq/L (136-145)
[2018-10-17 07:41] LABS: Lymphocytes 12 % (9-44); Monocytes 8 % (0-8); Myelocytes 2 % (0-0)
[2018-10-17 07:42] LABS: Platelet Estimate Normal (Normal); Platelet Morphology Normal (Normal)
--- NOTE | 2018-10-17 07:50 | XR ---
EXAM DATE: 10/17/2018 7:46 AM EST AGE/SEX: 78 years / Female INDICATIONS: Shortness of breath. CLINICAL DATA: This is the patient's subsequent encounter. Patient reports that signs and symptoms h ave been present for 1 day and indicates a pain score of 0/10. MEDICAL/SURGICAL HISTORY: Chronic obstructive pulmonary disease. None. [place] [facility] [place]. . FINDINGS: Heart is enlarged. Mild interstitial edema is present. Minimal bibasilar parenchymal changes are evid ent. There is no alveolar consolidation or significant pleural effusion. There is no pneumothorax. Degenerative changes about the left shoulder. CONCLUSION: Compared to 1229/ there has been little change with cardiomegaly and mild interstitial edema. Electronically signed by: Justin Horton MD Board Certified Radiologist 10/17/2018 7:48 AM EST
[2018-10-17] MEDS: Lidocaine 5% Patch T-DERMAL SCH ×2 (08:55)
[2018-10-17] MEDS: Famotidine 20 MG Tablet PO SCH ×2 (08:56→22:00)
[2018-10-17] MEDS: Polyethylene Glycol 3350 17 GM Packet PO SCH ×2 (08:56→22:02)
[2018-10-17] MEDS: predniSONE 10 MG Tablet PO SCH ×2 (08:56→22:01)
[2018-10-17] MEDS: Sodium Chloride 0.9% 2 ML Flush BID IV.FLUSH SCH ×2 (08:56→22:00)
[2018-10-17] MEDS: Tiotropium Bromide 18 MCG/ACT Inhaler INH SCH (08:56)
[2018-10-17] MEDS: Escitalopram 10 MG Tablet PO SCH (08:56)
[2018-10-17] MEDS: Budesonide-Formoterol 160/4.5 MCG 6 GM Inhaler INH SCH (08:57)
--- NOTE | 2018-10-17 12:49 | P.PN ---
Subjective Interval history: Up in a chair. On O2 2 L. No wheezing . some pain persists. Physical Exam Vital signs: Vital Signs 10/16/18 16:00 10/16/18 20:00 10/17/18 00:00 Temperature 98 F 98.1 F 97.8 F Pulse Rate 74 90 73 Respiratory Rate 20 18 18 Blood Pressure 115/64 114/62 Pulse Oximetry 96 94 L 10/17/18 01:05 10/17/18 04:00 10/17/18 05:05 Temperature 98.4 F Pulse Rate 81 84 85 Respiratory Rate 20 18 20 Blood Pressure 109/49 L Pulse Oximetry 97 10/17/18 07:00 10/17/18 07:47 10/17/18 08:34 Temperature 99.2 F Pulse Rate 78 78 85 Respiratory Rate 17 18 Blood Pressure 93/43 L Pulse Oximetry 96 97 10/17/18 11:00 10/17/18 11:16 10/17/18 11:22 Temperature 99.4 F Pulse Rate 84 75 81 Respiratory Rate 18 16 Blood Pressure 134/58 L Pulse Oximetry 93 L Intake & Output 10/16/18 10/17/18 10/17/18 18:59 06:59 18:59 Intake Total 600 / 600 390 / 390 Output Total 700 / 700 1150 / 1150 Balance -100 / -100 -760 / -760 Weight 73 kg Intake: IV 150 / 150 Levaquin 750 mg Premix Inj 150 150 / 150 ML @ 100 mls/hr IV.SIG Q24H [facility] Rx#:[id number] Oral 600 / 600 240 / 240 Output: Urine 700 / 700 1150 / 1150 Other: # Voids 3 Date of Last Bowel Movement 10/15/18 10/15/18 10/14/18 # Bowel Movements 1 Narrative: GENERAL: Elderly female alert . NAD. HEENT: not pale,anicteric NECK:no JVD. CHEST:Few upper chest wheezes. CARDIOVASCULAR: Normal rate, regular rhythm. ABDOMEN: Soft, nontender, no organomegaly. MUSCULOSKELETAL:no pedal edema. NEUROLOGICAL: Awake, alert, oriented x4. No focal deficits. - Urinary Catheter Management Indwelling Urethral Catheter Cath placed during this visit: yes, but has since been removed by the nurse Reason for continuing: Other continuation reason Insertion date: 10/11/18 Insertion time: 23:47 Removal date: 10/12/18 Removal time: 03:05 Results - Labs CBC & Chem 7: 10/17/18 04:42 10/17/18 04:42 Laboratory Results - last 24 hr 10/17/18 10/17/18 04:42 04:42 WBC 10.4 RBC 3.82 L Hgb 13.0 Hct 37.9 MCV 99.4 MCH 34.1 H MCHC 34.3 RDW 13.6 Plt Count 300 MPV 8.4 Prelim Diff (Auto) Slide review pending Neut % (Auto) 78.5 H Lymph % (Auto) 9.9 [place] % (Auto) 11.3 H Eos % (Auto) 0.1 Baso % (Auto) 0.2 Neut # (Auto) 8.2 H Lymph # (Auto) 1.0 [place] # (Auto) 1.2 H Eos # (Auto) 0.0 Baso # (Auto) 0.0 WBC Differential Manual diff final Seg Neuts % (Manual) 77 H Band Neuts % (Manual) 1 Lymphocytes % (Manual) 12 Monocytes % (Manual) 8 Myelocytes % (Man) 2 H Abs Neuts (Manual) 8.3 H Differential Comment . Platelet Estimate Normal Platelet Morphology Normal Sodium 137 Potassium 4.2 Chloride 103 Carbon Dioxide 27.7 Anion Gap 6 BUN 14 Creatinine 0.62 Estimated GFR Greater than 89 Random Glucose 95 Calcium 8.6 Phosphorus 4.1 D Magnesium 2.6 H - Imaging Impressions Chest X-Ray 10/17/18 00:00 CONCLUSION: Compared to 1229/ there has been little change with cardiomegaly and mild interstitial edema. Assessment and Plan - Assessment (1) Respiratory failure with hypoxia Code(s): J96.91 - Respiratory failure, unspecified with hypoxia Status: Acute (2) Pneumonia Code(s): J18.9 - Pneumonia, unspecified organism Status: Acute (3) Shortness of breath Code(s): R06.02 - Shortness of breath Status: Acute (4) COPD (chronic obstructive pulmonary disease) Code(s): J44.9 - Chronic obstructive pulmonary disease, unspecified Status: Acute - Plan 1. Cont O2 2 L N/C and home O2 2 L 2. Nebs qid , duoneb. 3. PFT today. 4. Tarmadol 50 Mg Q6h PRN 5. Prednisone 30 mg daily 6. D/C IV Antibiotics and switch to PO for 3 days 7. Up as tolerated.PT and OT 8. Rehab placement (4) COPD (chronic obstructive pulmonary disease) Qualifiers: COPD type: unspecified COPD Qualified Code(s): J44.9 - Chronic obstructive pulmonary disease, unspecified
--- NOTE | 2018-10-17 15:22 | P.DS ---
DS: Providers Date of admission: 10/12/18 01:37 Primary care physician: Mayra Barlow Ed Consults: 10/12/18 01:36 Consult to Hospitalist Routine Consulting Provider: Melinda Short Reason for Consultation: copd exacerbation Notified:: Service Spoke with:: dandre Date Notified:: 10/12/18 Time Notified:: 02:21 Ordering Provider: FIDEL 10/12/18 03:30 Consult to Pulmonology Routine Consulting Provider: Paul Dominguez V Reason for Consultation: COPD exacerbation Notified:: Service Spoke with:: lorenzo Date Notified:: 10/12/18 Time Notified:: 06:13 Ordering Provider: FIDEL 10/12/18 12:29 Consult to Cardiology Routine Consulting Provider: Dawood Juárez Does the patient have a Global Expansion Sales Director who follows them?: No Preferred Flavoring Machine Operator:: Milk Hauler Physician Reason for Consultation: Patient admitted secondary to acute hypoxic and hypercapnic respiratory failure, severe COPD exacerbation now with elevated cardiac enzyme, please evaluate and advise for therapy Notified:: Service Spoke with:: TESSA Date Notified:: 10/12/18 Time Notified:: 12:31 Ordering Provider: LAVERN Brief History from admission: 78yF with history of severe COPD presents with 1 day history of acute worsening SOB. Per ER reports, EMS stated patient was unresponsive and they emergently intubated her. In the ER, she had a respiratory acidosis by ABG. however, after iv steroids and nebs, she was awake and alert, oriented, following commands. after a short spontaneous breathing trial, and consultation with the ER physician, myself, and respiratory therapy, the patient was successfully extubated and placed on nc o2. She is unlabored and awake, alert. she endorses SOB. denies fever, chills. denies sputum production. denies chest pain, sob. denies n/v/c/d or abd pain. has otherwise been in her usual state of health. no sick contacts. CXR without infiltrate. trop slightly elevated. remainder of the ROS negative. DS: Diagnosis Discharge Diagnosis (1) Respiratory failure with hypoxia: Status: Acute (2) Pneumonia: Status: Acute (3) Shortness of breath: Status: Acute (4) COPD (chronic obstructive pulmonary disease): Status: Acute DS: Summary ISSUES ADDRESSED DURING THIS HOSPITALIZATION: 1. Acute hypoxic and hypercapnic respiratory failure due to Acute severe COPD exacerbation: Patient was initially intubated by the EMS due to unresponsiveness, in the ER after initial NEBS and IV steroids patient woke up and was well oriented and following commands. She was successfully extubated to nasal canula. She was admitted to the step down unit. She was continued on IV steroids, DUONEBS, started on IV antibiotics, Symbicort , Spiriva. Aggressive pulmonary toilet was pursued. Patient clinically improved,leucocytosis subsided.She was transitioned to oral prednisone taper and oral Levaquin. Patient has been counseled to quit smoking cigarettes. Patient should follow up with exploration manager 2. Leukocytosis likely due to steroids,now resolved.No clinical signs of infection. 3. Rib pain-patient had CPR prior to admission. She is on Tramadol, Lidocaine patches and Tylenol 1gm q8h which have controlled her pain. 4.Elevated troponin-likely secondary to demand ischemia in the setting of COPD exacerbation and respiratory failure. 2D echo- LVEF 50%. 5. Debility:PT/OT evaluated patient and recommend rehab placement. Time Spent with Patient Total time spent providing and/or coordinating discharge services: Quality: VTE Deep Vein Thrombosis/Pulmonary Embolism Present on Admission: No Exam Narrative Exam Narrative: GENERAL: Elderly female alert . NAD. HEENT: not pale,anicteric,nasal canula insitu. NECK:no JVD. CHEST:clear to auscultation, no wheezes. no creps. CARDIOVASCULAR: Normal rate, regular rhythm. ABDOMEN: Soft, nontender, no organomegaly. MUSCULOSKELETAL:no pedal edema. NEUROLOGICAL: Awake, alert, oriented x4. No focal deficits. Results Labs on day of discharge: Labs from last 24 hours 10/17/18 10/17/18 04:42 04:42 WBC 10.4 RBC 3.82 L Hgb 13.0 Hct 37.9 MCV 99.4 MCH 34.1 H MCHC 34.3 RDW 13.6 Plt Count 300 MPV 8.4 Prelim Diff (Auto) Slide review pending Neut % (Auto) 78.5 H Lymph % (Auto) 9.9 Overton % (Auto) 11.3 H Eos % (Auto) 0.1 Baso % (Auto) 0.2 Neut # (Auto) 8.2 H Lymph # (Auto) 1.0 Overton # (Auto) 1.2 H Eos # (Auto) 0.0 Baso # (Auto) 0.0 WBC Differential Manual diff final Seg Neuts % (Manual) 77 H Band Neuts % (Manual) 1 Lymphocytes % (Manual) 12 Monocytes % (Manual) 8 Myelocytes % (Man) 2 H Abs Neuts (Manual) 8.3 H Differential Comment . Platelet Estimate Normal Platelet Morphology Normal Sodium 137 Potassium 4.2 Chloride 103 Carbon Dioxide 27.7 Anion Gap 6 BUN 14 Creatinine 0.62 Estimated GFR Greater than 89 Random Glucose 95 Calcium 8.6 Phosphorus 4.1 D Magnesium 2.6 H Impressions ITS Impressions Head CT 10/12/18 00:00 CONCLUSION: 1. No acute intracranial abnormality demonstrated. 2. Atrophy. 3. Chronic appearing sinusitis. . Chest X-Ray 10/17/18 00:00 CONCLUSION: Compared to 1229/ there has been little change with cardiomegaly and mild interstitial edema. Discharge Plan Discharge Disposition Patient Disposition: Discharge to SNF Discharge Condition Condition: Stable Discharge Order Discharge Orders: Discharge Order (Routine); Ordered 10/17/18 Ordered By: Yue Del Rio Discharge Details Anticipated Discharge Date: 10/17/18 Physicians Team Primary Care Provider: [facility] Ed,[facility] [place] Attending Provider: Yue Del Rio Other Providers: Paul Dominguez Glenn ; [facility]j [facility],[place] Rxs /Orders / Referrals /Forms Prescriptions: New levofloxacin 500 mg Tablet 500 mg PO DAILY 3 Days Qty: 3 RF: 0 tiotropium bromide [Spiriva with HandiHaler] 18 mcg Capsule, W/Inhalation Device 18 mcg Inhalation DAILY Qty: 1 RF: 2 prednisone 10 mg Tablet 10 mg PO DAILY Qty: 36 RF: 0 acetaminophen 500 mg Tablet 1,000 mg PO Q8H Qty: 20 RF: 0 budesonide-formoterol [Symbicort] 160-4.5 mcg/actuation Hfa Aerosol Inhaler 2 puff Inhalation BID Qty: 6 RF: 2 lidocaine 5 % adhesive patch,medicated 2 patch TOPICAL DAILY Qty: 30 RF: 0 Continue ipratropium-albuterol 0.5 mg-3 mg(2.5 mg base)/3 mL Solution For Nebulization 3 ml INHALATION Q6-8H PRN (Reason: Shortness Of Breath Or Wheezing) RF: 0 alendronate 70 mg Tablet 70 mg PO QWEEK RF: 0 tramadol 50 mg Tablet 50 mg PO TID PRN (Reason: Acute Pain) RF: 0 alprazolam 0.25 mg Tablet 0.25 mg PO BID PRN (Reason: Anxiety) RF: 0 zolpidem 5 mg Tablet 5 mg PO HS RF: 0 albuterol sulfate [Ventolin HFA] 90 mcg/actuation Hfa Aerosol Inhaler 2 puff INHALATION Q4-6H PRN (Reason: Shortness Of Breath Or Wheezing) RF: 0 escitalopram oxalate 10 mg Tablet 15 mg PO DAILY RF: 0 Referrals: [facility] [Primary Care Provider] - See Instructions Discharge Instructions Patient Printed Instructions: Prednisone (By mouth), Levofloxacin (By mouth) Additional Instructions: Your Health Problems: respiratory failure Goals to Promote Your Health: * To prevent worsening of your condition * To maintain your health at the optimal level Directions to Meet Your Goals: * Take your medications as prescribed * Follow your dietary instruction * Follow activity as directed * Keep your appointments as scheduled * Take your immunizations and boosters as scheduled * If your symptoms worsen call your PCP * If no PCP go to Urgent Care or Emergency Room Smoking is dangerous to your health. Avoid second hand smoke. You may reach the 24-hour crisis hotline for domestic abuse at . Post Discharge Care Plan Care Plan Goals: Your Health Problems: respiratory failure Goals to Promote Your Health: * To prevent worsening of your condition * To maintain your health at the optimal level Directions to Meet Your Goals: * Take your medications as prescribed * Follow your dietary instruction * Follow activity as directed * Keep your appointments as scheduled * Take your immunizations and boosters as scheduled * If your symptoms worsen call your PCP * If no PCP go to Urgent Care or Emergency Room Smoking is dangerous to your health. Avoid second hand smoke. You may reach the 24-hour crisis hotline for domestic abuse at . Status ED Status: Left Department
--- NOTE | 2018-10-17 15:24 | P.PNIM ---
Subjective Interval history: feeling well,breathing improved, rib pain is better today. Physical Exam Vital signs: Last Vital Signs Temp 99.4 F 10/17/18 11:16 Pulse 92 H 10/17/18 15:00 Resp 16 10/17/18 11:22 BP 134/58 L 10/17/18 11:16 Pulse Ox 93 L 10/17/18 11:16 Intake & Output 10/15/18 10/16/18 10/17/18 10/18/18 06:59 06:59 06:59 06:59 Intake Total 1470 / 1470 1630 / 1630 990 / 990 Output Total 800 / 800 1850 / 1850 Balance 670 / 670 1630 / 1630 -860 / -860 Weight 71.3 kg 73.5 kg 73 kg Narrative: GENERAL: Elderly female alert . NAD. HEENT: not pale,anicteric NECK:no JVD. CHEST:Few upper chest wheezes. CARDIOVASCULAR: Normal rate, regular rhythm. ABDOMEN: Soft, nontender, no organomegaly. MUSCULOSKELETAL:no pedal edema. NEUROLOGICAL: Awake, alert, oriented x4. No focal deficits. Urinary Catheter Management Indwelling Urethral Catheter: Cath placed during this visit: yes, but has since been removed by the nurse Insertion date: 10/11/18 Insertion time: 23:47 Removal date: 10/12/18 Removal time: 03:05 Results Labs CBC & Chem 7: 10/17/18 04:42 10/17/18 04:42 Imaging Imaging: Impressions Chest X-Ray 10/17/18 00:00 CONCLUSION: Compared to 1229/ there has been little change with cardiomegaly and mild interstitial edema. Assessment and Plan (1) Respiratory failure with hypoxia: Code(s): J96.91 - Respiratory failure, unspecified with hypoxia Status: Acute (2) Pneumonia: Code(s): J18.9 - Pneumonia, unspecified organism Status: Acute (3) Shortness of breath: Code(s): R06.02 - Shortness of breath Status: Acute (4) COPD (chronic obstructive pulmonary disease): Code(s): J44.9 - Chronic obstructive pulmonary disease, unspecified Status: Acute Plan 78-year-old female with Acute hypoxic and hypercapnic respiratory failure--Resolved -patient was extubated 10/11 Acute severe COPD exacerbation -clinically improving. Leucocytosis resolved. -switched to oral prednisone taper. continue DuoNeb scheduled and as needed. -Symbicort, Spiriva, Levaquin, -Continue aggressive pulmonary toilet -Tobacco cessation strongly advised Leukocytosis likely due to steroids, now resolved.No clinical signs of infection at present. Rib pain-patient had CPR prior to admission, on Tramadol which is not helping, added Lidocaine patch on 10/14, and Tylenol 1gm q8h. pain improved. Elevated troponin-likely secondary to demand ischemia in the setting of COPD exacerbation and respiratory failure. 2D echo- LVEF 50%. Anxiety-cont Lexapro DVT prophylaxis: Heparin subcut PT/OT recommend rehab--pending placement. Progress Note: Quality VTE Deep Vein Thrombosis/Pulmonary Embolism Present on Admission: No _ (1) Respiratory failure with hypoxia Qualifiers: Chronicity: (2) Pneumonia Qualifiers: Pneumonia type: Aspiration pneumonia type: Laterality: Lung location: (3) COPD (chronic obstructive pulmonary disease) Qualifiers: COPD type: unspecified COPD Chronic bronchitis type: Emphysema type: Qualified Code(s): J44.9 - Chronic obstructive pulmonary disease, unspecified
[2018-10-18] MEDS: Budesonide-Formoterol 160/4.5 MCG 6 GM Inhaler INH SCH ×2 (02:57→09:50)
[2018-10-18] MEDS: Heparin - SQ 10,000 UNITS/ML Vial SQ SCH ×2 (06:13→16:06)
[2018-10-18] MEDS: Acetaminophen 500 MG Tablet PO SCH ×2 (06:15→12:07)
[2018-10-18 07:21] LABS: Baso % (Auto) 0.4 % (0.0-2.0); Eos # (Auto) 0.1 th/mm3 (0.0-0.4); Eos % (Auto) 0.5 % (0.0-4.0); Hematocrit 38.1 % (35.0-46.0); Hemoglobin 13.2 gm/dL (11.6-15.3); Lymph # (Auto) 1.1 th/mm3 (1.0-4.8); Lymph % (Auto) 10.1 % (9.0-44.0); Mean Corpuscular HGB Conc 34.5 % (32.0-36.0); Mean Corpuscular Hemoglobin 34.7 pg (27.0-34.0); Mean Corpuscular Volume 100.3 fL (80.0-100.0); Mean Platelet Volume 7.6 fL (7.0-11.0); Mono % (Auto) 8.8 % (0.0-8.0); Neut # (Auto) 8.7 th/mm3 (1.8-7.7); Neut % (Auto) 80.2 % (16.0-70.0); Platelet Count 327 th/mm3 (150-450); Red Cell Distribution Width 13.1 % (11.6-17.2); White Blood Count 10.8 th/mm3 (4.0-11.0)
[2018-10-18 07:36] LABS: Calcium 8.1 mg/dL (8.5-10.1); Carbon Dioxide 31.3 meq/L (21.0-32.0); Magnesium 2.4 mg/dL (1.5-2.5); Phosphorus 3.9 mg/dL (2.5-4.9); Potassium 3.8 meq/L (3.5-5.1)
[2018-10-18] MEDS ORDERED: levoFLOXacin 500 MG Tablet PO SCH (09:00)
[2018-10-18] MEDS: Famotidine 20 MG Tablet PO SCH (09:48)
[2018-10-18] MEDS: Escitalopram 10 MG Tablet PO SCH (09:48)
[2018-10-18] MEDS: Lidocaine 5% Patch T-DERMAL SCH ×2 (09:49)
[2018-10-18] MEDS: predniSONE 10 MG Tablet PO SCH (09:49)
[2018-10-18] MEDS: Tiotropium Bromide 18 MCG/ACT Inhaler INH SCH (09:50)
[2018-10-18] MEDS: Polyethylene Glycol 3350 17 GM Packet PO SCH (09:50)
[2018-10-18] MEDS: Sodium Chloride 0.9% 2 ML Flush BID IV.FLUSH SCH (09:50)
[2018-10-18 10:46] LABS: Eosinophils 1 % (0-4); Lymphocytes 9 % (9-44); Monocytes 8 % (0-8); Myelocytes 3 % (0-0); Platelet Estimate Normal (Normal); Platelet Morphology Normal (Normal)
[2018-10-18 12:07] VITALS: BP 150/70; TEMP 98; O2SAT 95
--- NOTE | 2018-10-18 15:58 | P.PNIM ---
Physical Exam Vital signs: Last Vital Signs Temp 98 F 10/18/18 12:06 Pulse 87 10/18/18 12:06 Resp 16 10/18/18 12:06 BP 150/70 H 10/18/18 12:06 Pulse Ox 95 10/18/18 12:06 Intake & Output 10/16/18 10/17/18 10/18/18 10/19/18 06:59 06:59 06:59 06:59 Intake Total 1630 / 1630 990 / 990 1940 / 1940 Output Total 1850 / 1850 1050 / 1050 Balance 1630 / 1630 -860 / -860 890 / 890 Weight 73.5 kg 73 kg 73.1 kg Narrative: GENERAL: Elderly female alert . NAD. HEENT: not pale,anicteric NECK:no JVD. CHEST:clear to auscultation. no wheezes or rales. CARDIOVASCULAR: Normal rate, regular rhythm. ABDOMEN: Soft, nontender, no organomegaly. MUSCULOSKELETAL:no pedal edema. NEUROLOGICAL: Awake, alert, oriented x4. No focal deficits. Urinary Catheter Management Indwelling Urethral Catheter: Cath placed during this visit: yes, but has since been removed by the nurse Insertion date: 10/11/18 Insertion time: 23:47 Removal date: 10/12/18 Removal time: 03:05 Results Labs CBC & Chem 7: 10/18/18 06:43 10/18/18 06:43 Assessment and Plan (1) Respiratory failure with hypoxia: Code(s): J96.91 - Respiratory failure, unspecified with hypoxia Status: Acute (2) Pneumonia: Code(s): J18.9 - Pneumonia, unspecified organism Status: Acute (3) Shortness of breath: Code(s): R06.02 - Shortness of breath Status: Acute (4) COPD (chronic obstructive pulmonary disease): Code(s): J44.9 - Chronic obstructive pulmonary disease, unspecified Status: Acute Plan 78-year-old female with Acute hypoxic and hypercapnic respiratory failure--Resolved -patient was extubated 10/11 Acute severe COPD exacerbation -clinically improving. Leucocytosis resolved. -cont oral prednisone taper. continue DuoNeb scheduled and as needed. -Symbicort, Spiriva, Levaquin, -Continue aggressive pulmonary toilet -Tobacco cessation strongly advised Leukocytosis likely due to steroids, now resolved.No clinical signs of infection at present. Rib pain-patient had CPR prior to admission, on Tramadol which is not helping, added Lidocaine patch on 10/14, and Tylenol 1gm q8h. pain improved. Elevated troponin-likely secondary to demand ischemia in the setting of COPD exacerbation and respiratory failure. 2D echo- LVEF 50%. Anxiety-cont Lexapro DVT prophylaxis: Heparin subcut PT/OT recommend rehab--pending placement. remains clinically stable for discharge to rehab when bed becomes available. Progress Note: Quality VTE Deep Vein Thrombosis/Pulmonary Embolism Present on Admission: No _ (1) Respiratory failure with hypoxia Qualifiers: Chronicity: (2) Pneumonia Qualifiers: Pneumonia type: Aspiration pneumonia type: Laterality: Lung location: (3) COPD (chronic obstructive pulmonary disease) Qualifiers: COPD type: unspecified COPD Chronic bronchitis type: Emphysema type: Qualified Code(s): J44.9 - Chronic obstructive pulmonary disease, unspecified
[2018-10-18 16:13] VITALS: PULSE 83; RESP 18
== END 2018-10-18 16:53 | DRG 208 ==
LOC: NEPC 23:24 → NEDA 10-12 01:37 → HCIS 10-12 02:23
PROVIDERS: ADMIT Hospitalist; ATTEND Hospitalist
DX: B37.2 Candidiasis of skin and nail; T38.0X5A Adverse effect of glucocorticoids and synthetic analogues, initial encounter; F17.210 Nicotine dependence, cigarettes, uncomplicated; F32.9 Major depressive disorder, single episode, unspecified; D72.828 Other elevated white blood cell count; J96.02 Acute respiratory failure with hypercapnia; I24.8 Other forms of acute ischemic heart disease; R25.1 Tremor, unspecified; J96.01 Acute respiratory failure with hypoxia; F41.9 Anxiety disorder, unspecified; J69.0 Pneumonitis due to inhalation of food and vomit; Z88.0 Allergy status to penicillin; Z82.5 Family history of asthma and other chronic lower respiratory diseases; Z85.42 Personal history of malignant neoplasm of other parts of uterus; E87.2 Acidosis; J43.9 Emphysema, unspecified
CPT/HCPCS: 36600; 70450; 71010; 71045; 80048; 80053; 81001; 82550; 82552; 82805; 82948; 82962; 83520; 83735; 83880; 84100; 84484; 85025; 87275; 87276; 87641; 87804; 90765; 90766; 92610; 93005; 93306; 94002; 94003; 94150; 94640; 94650; 94651; 94656; 94657; 94664; 94665; 94667; 94668; 96365; 96366; 97110; 97116; 97162; 97167; 97530; 97535; 99285; G0195; J1644; J1956; J2704; J2920; J7506; J7512; P9612